=== PATIENT | male | born 1960 | race Caucasian/White ===

== ENCOUNTER 2017-07-05 11:22 | Inpatient (IN) | END 2017-07-07 20:00 | disposition home or self-care (01) | DRG 391 ==

== ENCOUNTER 2017-07-28 13:01 | Observation (INO) | END 2017-07-30 20:45 | disposition home health service (06) ==

== ENCOUNTER 2017-08-08 04:14 | Inpatient (IN) | END 2017-08-19 16:20 | disposition home or self-care (01) | DRG 264 ==

== ENCOUNTER 2017-10-20 20:16 | Emergency (ER) | END 2017-10-20 23:20 | disposition short-term general hospital (02) ==

== ENCOUNTER 2018-10-08 17:00 | Inpatient (IN) | payer MEDICARE, OTHER ==
[~2018-10-08] VITALS: Ht 180.3 cm; Wt 67.0 kg
[~2018-10-08 17:00] MED LIST: ASPI-817 PO; FURO40TA4 PO; LOSA50TA14 PO; METO-448 PO
[2018-10-08] MEDS ORDERED: LORAZEPAM 2 MG INJ IV STA (17:03)
[2018-10-08] MEDS ORDERED: ONDANSETRON 4 MG INJ IV STA ×2 (17:03→21:06)
[2018-10-08] MEDS ORDERED: PIPER-TAZO 3.375 GM IV (PMX) 100 ML IVPB STA (17:55)
--- NOTE | 2018-10-08 19:17 | ERD ---
ER Documentation Chief Complaint Chief Complaint SEIZURE WITH N/V ALSO POSTICTAL HPI This is a 58-year-old male who presents for evaluation of seizure associated with nausea vomiting and likely aspiration event. The patient has a history of renal failure, and he was seen today, per family, the seizure lasted for several minutes, he is currently on Dilantin, he has not had a fever, he had no head trauma. Family called 911, who instructed him to receive chest compressions, however the family notes that the patient did not lose pulses or have any period of arrest. ROS All systems reviewed and are negative except as per history of present illness. Medications Home Meds Discontinued Reported Medications Losartan Potassium* (Losartan Potassium*) Unknown Strength Tablet, 1 TAB PO DAILY, TAB 10/20/17 Furosemide* (Furosemide*) Unknown Strength Tablet, 1 TAB PO DAILY, TAB 10/20/17 Metoprolol Tartrate* (Lopressor*) 25 Mg Tab, 25 MG PO BID, #60 TAB 10/20/17 Aspirin* (Aspirin* EC) 81 Mg Tablet.dr, 81 MG PO DAILY, TAB 10/20/17 Allergies Allergies: Coded Allergies: No Known Allergy (Unverified , 10/08/18) PMhx/Soc History of Surgery: Yes (appendectomy, 2 stents) Anesthesia Reaction: No Hx Neurological Disorder: Yes (CVA; SEIZURES) Hx Respiratory Disorders: Yes (pneumonia) Hx Cardiac Disorders: Yes (HTN) Hx Psychiatric Problems: No (DEPRESSION) Hx Miscellaneous Medical Probl: Yes (DM; CKD; UPPER GI BLEED) Hx Alcohol Use: No Hx Substance Use: No Hx Tobacco Use: No Smoking Status: Never smoker Physical Exam Vitals Vital Signs Date Temp Pulse Resp B/P (MAP) Pulse Ox O2 O2 Flow FiO2 Time Delivery Rate 10/08/18 90 12 146/80 95 Nasal 3.0 18:47 (102) Cannula 10/08/18 Nasal 3 18:31 Cannula 10/08/18 97.8 94 20 195/102 100 17:13 (133) Physical Exam Const: Patient arrives, with face covered in vomit, he is awake, and respond Head: Atraumatic Eyes: Normal Conjunctiva ENT: Normal External Ears, Nose and Mouth. Neck: Full range of motion. No meningismus. Resp: Clear to auscultation bilaterally Cardio: Regular rate and rhythm, no murmurs Abd: Soft, non tender, non distended. Normal bowel sounds Skin: No petechiae or rashes Back: No midline or flank tenderness Ext: No cyanosis, or edema Neur: Awake, opens eyes spontaneously. Psych: Normal Mood and Affect Result Diagram: 10/08/18181410/08/181814 Results 24 hrs Laboratory Tests Test 10/08/18 18:15 10/08/18 18:16 White Blood Count 9.9 10^3/ul Red Blood Count 4.24 10^6/ul Hemoglobin 12.3 g/dl Hematocrit 36.1 % Mean Corpuscular Volume 85.1 fl Mean Corpuscular Hemoglobin 29.0 pg Mean Corpuscular Hemoglobin Concent 34.1 g/dl Red Cell Distribution Width 12.6 % Platelet Count 309 10^3/UL Mean Platelet Volume 10.6 fl Immature Granulocytes % 0.300 % Neutrophils % 79.9 % Lymphocytes % 10.2 % Monocytes % 7.2 % Eosinophils % 1.7 % Basophils % 0.7 % Nucleated Red Blood Cells % 0.0 /100WBC Immature Granulocytes # 0.030 10^3/ul Neutrophils # 7.9 10^3/ul Lymphocytes # 1.0 10^3/ul Monocytes # 0.7 10^3/ul Eosinophils # 0.2 10^3/ul Basophils # 0.1 10^3/ul Nucleated Red Blood Cells # 0.0 10^3/ul Prothrombin Time 12.0 Sec Prothrombin Time Ratio 0.9 INR International Normalized Ratio 0.88 Activated Partial Thromboplast Time 29.1 Sec Sodium Level 139 mmol/L Potassium Level 3.3 mmol/L Chloride Level 97 mmol/L Carbon Dioxide Level 29 mmol/L Anion Gap 13 Blood Urea Nitrogen 32 mg/dl Creatinine 5.48 mg/dl Est Glomerular Filtrat Rate mL/min 11 mL/min Glucose Level 196 mg/dl Calcium Level 7.5 mg/dl Total Bilirubin 0.0 mg/dl Direct Bilirubin 0.00 mg/dl Indirect Bilirubin 0.0 mg/dl Aspartate Amino Transf (AST/SGOT) 22 IU/L Alanine Aminotransferase (ALT/SGPT) 15 IU/L Alkaline Phosphatase 118 IU/L Total Protein 7.3 g/dl Albumin 3.7 g/dl Globulin 3.60 g/dl Albumin/Globulin Ratio 1.02 Phenytoin (Dilantin) Level < 3.0 ug/ml Lactic Acid Level 3.2 mmol/L Troponin I 0.021 ng/ml Lipase 312 U/L Current Medications Medications Dose Sig/Jacqueline Start Time Status Last (Trade) Ordered Route PRN Stop Time Admin Dose Reason Admin Lorazepam 0.5 mg ONCE STAT 10/08/18 DC 10/08/18 (Ativan) IV 17:03 17:32 10/08/18 17:13 Ondansetron 4 mg ONCE STAT 10/08/18 DC 10/08/18 HCl (Zofran IV 17:03 17:32 Inj) 10/08/18 17:13 Piperacillin 100 ml @ ONCE STAT 10/08/18 DC 10/08/18 Sod/ 200 mls/hr IVPB 17:55 18:43 Tazobactam 10/08/18 18:24 Sod 100 ml @ ONCE ONCE 10/08/18 Fosphenytoin 200 mls/hr IVPB 19:30 Sodium 1000 10/08/18 19:59 mg/ Sodium Chloride Procedures/MDM 58-year-old male with a history of seizures who presents with a seizure episode, complicated by aspiration event. Patient had no further seizure activity in the ED, he is given Zofran, Ativan, as well as loaded with fosphenytoin, as his phenytoin level was noted to be below the detectable range. Given his hypoxia, the patient will require admission, for his aspiration event. He was given Zosyn empirically. His lactate was noted to be elevated, I suspect this is likely secondary to seizure, he had no fever, and no evidence of severe sepsis or septic shock. The patient will be admitted to Dr. Gonzales in telemetry EKG: Rate/Rhythm: Normal Sinus Rhythm QRS, ST, T-waves: No changes consistent w/ acute ischemia Impression: No evidence of ischemia or arrhythmia Critical Care Time: 35 minutes Treatments/Evaluations: Close monitoring and treatment of unstable vital signs, cardiorespiratory, and neurologic status, while maintaining tight balance of fluid, respiratory, and cardiac interventions. This time includes discussing the case with the patient and the patient's family. This time does not include all procedures stated elsewhere in this record. This time also includes reviewing old records, labs and radiological studies. This time includes examining and re- examining the patient. Additionally, this time also includes arranging care with admitting and consulting physicians. Departure Diagnosis: Primary Impression: Seizure disorder Additional Impression: Aspiration pneumonia Aspiration pneumonia type: unspecified Laterality: unspecified laterality Lung location: unspecified part of lung Qualified Codes: J69.0 - Pneumonitis due to inhalation of food and vomit Condition: Stable MIGUEL PLASENCIA MD Oct 08, 2018 19:17
[2018-10-08] MEDS ORDERED: FOSPHENYTOIN (PE) 1,000 MG in SOD CHLORIDE 0.9% 80 ML IVPB ONE (19:30)
[2018-10-08 21:20] VITALS: Ht 180.3 cm; Wt 67.0 kg
[2018-10-08 21:28] VITALS: PULSE 100
[2018-10-08 21:49] VITALS: BP 140/64; PULSE 104; RESP 18
--- NOTE | 2018-10-08 22:44 | HP ---
Date/Time of Note Date/Time of Note DATE: 10/08/18 TIME: 22:44 Assessment/Plan VTE Prophylaxis Pharmacological prophylaxis: heparin Lines/Catheters IV [facility] Urinary Cath still in place: No Assessment/Plan Assessment/Plan 1. Seizure: Currently appears to be in a postictal state -Seizure precaution -Head CT without acute findings. Follow[facility] 2. Possible aspiration: Patient reportedly was vomiting during seizure -Chest x-ray without acute findings -She will be placed on broad-spectrum antibiotic -Chest CT for history distress of worsening leukocytosis, lactate or fever 3. ESRD on HD: Nephrology for dialysis 4. Hypertensive urgency: Adjust antihypertensive as needed 5. Diabetes: Insulin while in-house 6. Questionable sepsis: Likely from aspiration -Broad-spectrum IV antibiotic -Trend lactate -Follow-up blood culture results -We will give IV fluid. Note however that patient is dialysis dependent Result Diagram: 10/08/185 10/08/18 1815 Results 24hrs Laboratory Tests Test 10/08/18 18:15 10/08/18 18:16 White Blood Count 9.9 Red Blood Count 4.24 #L Hemoglobin 12.3 L Hematocrit 36.1 L Mean Corpuscular Volume 85.1 Mean Corpuscular Hemoglobin 29.0 Mean Corpuscular Hemoglobin Concent 34.1 Red Cell Distribution Width 12.6 Platelet Count 309 Mean Platelet Volume 10.6 H Immature Granulocytes % 0.300 Neutrophils % 79.9 H Lymphocytes % 10.2 L Monocytes % 7.2 Eosinophils % 1.7 Basophils % 0.7 Nucleated Red Blood Cells % 0.0 Immature Granulocytes # 0.030 Neutrophils # 7.9 H Lymphocytes # 1.0 Monocytes # 0.7 Eosinophils # 0.2 Basophils # 0.1 Nucleated Red Blood Cells # 0.0 Prothrombin Time 12.0 Prothrombin Time Ratio 0.9 INR International Normalized Ratio 0.88 Activated Partial Thromboplast Time 29.1 Sodium Level 139 Potassium Level 3.3 L Chloride Level 97 Carbon Dioxide Level 29 Anion Gap 13 Blood Urea Nitrogen 32 H Creatinine 5.48 H Est Glomerular Filtrat Rate mL/min 11 L Glucose Level 196 Calcium Level 7.5 L Total Bilirubin 0.0 L Direct Bilirubin 0.00 Indirect Bilirubin 0.0 Aspartate Amino Transf (AST/SGOT) 22 Alanine Aminotransferase (ALT/SGPT) 15 Alkaline Phosphatase 118 Total Protein 7.3 Albumin 3.7 Globulin 3.60 H Albumin/Globulin Ratio 1.02 Phenytoin (Dilantin) Level < 3.0 L Lactic Acid Level 3.2 *H Troponin I 0.021 Lipase 312 H HPI/ROS Admit Date/Time Admit Date/Time Oct 08, 2018 at 18:36 Hx of Present Illness This is a 58-year-old male with a history of hypertension, diabetes, CVA, ESRD on HD who presents the ER after he had a seizure. Seizure lasted about 50 minutes and also reportedly patient was vomiting at that time. Currently, patient is fully awake, but confused and not answering questions appropriately. When he came to the ER, initial blood pressure was 195/102. Head CT shows old stroke without acute findings. Initial lab shows a WBC of around 10, lactate 3.2. Chest x-ray without acute findings. PMH/Family/Social Past Medical History Past Surgical Hx: other (See HPI) Family History Significant Family History: no pertinent family hx Social History Alcohol Use: other Smoking Status: Never smoker Drug Use: none Exam/Review of Systems Vital Signs Exam Constitutional: alert, oriented, well developed, other (No acute distress. Answering questions appropriately) Head: normocephalic, atraumatic Eyes: EOMI, PERRL Respiratory: clear to auscultation, normal air movement Cardiovascular: regular rate and rhythm, nl pulses Gastrointestinal: soft, other (Tenderness in the epigastric area) Extremities: other (Trace pitting edema noted) Medications Current Medications IV Flush (NS 3 ml) 3 ml PER PROTOCOL IV ; Start 10/08/18 at 23:00; Status UNV Ondansetron HCl (Zofran Inj) 4 mg Q6H PRN IV NAUSEA/VOMITING; Start 10/08/18 at 23:00; Status UNV Acetaminophen (Tylenol Tab) 650 mg Q6H PRN PO .PAIN 1-3 OR TEMP; Start 10/08/18 at 23:00; Status UNV Albuterol/ Ipratropium (Duoneb) 3 ml Q2H RESP THERAPY PRN HHN SHORTNESS OF BREATH; Start 10/08/18 at 23:00; Status UNV Coded Allergies: No Known Allergy (Unverified , 10/08/18) Past Surgical History Past Surgical Hx: appendectomy Family History Significant Family History: no pertinent family hx Social History Smoking Status: Former smoker Exam/Review of Systems Vital Signs Vitals Vital Signs Date Temp Pulse Resp B/P (MAP) Pulse Ox O2 O2 Flow FiO2 Time Delivery Rate 10/08/18 98.6 104 18 140/64 98 Nasal 21:49 (89) Cannula 10/08/18 2.0 21:30 RADHA PARSON MD Oct 08, 2018 22:44
[2018-10-08] MEDS ORDERED: ONDANSETRON 4 MG INJ IV PRN (23:00)
[2018-10-08] MEDS ORDERED: NACL 0.9% 3 ML SYG IV SCH (23:00)
[2018-10-08] MEDS ORDERED: ACETAMINOPHEN 325 MG TAB PO PRN (23:00)
[2018-10-08] MEDS ORDERED: ALBUTEROL/IPRATROPIUM (NEB) 3 ML AMP HHN PRN (23:00)
[2018-10-09] VITALS (12 sets, daily range): BP systolic 100–139; BP diastolic 54–66; PULSE 73–100; RESP 18–20
[2018-10-09] MEDS ORDERED: SOD CHLORIDE 0.9% 250 ML IV ONE (00:30)
[2018-10-09] MEDS ORDERED: VANCOMYCIN IV PER PHARMACY XX SCH (00:30)
[2018-10-09] MEDS: CEFEPIME 1GM/50 ML (PMX) 50 ML IVPB SCH ×2 (00:40→23:39)
[2018-10-09] MEDS ORDERED: VANCOMYCIN HCL 1.25 GM in SOD CHLORIDE 0.9% 250 ML IVPB SCH (01:30)
[2018-10-09] MEDS ORDERED: LORAZEPAM 2 MG INJ IV PRN ×3 (09:00→18:30)
--- NOTE | 2018-10-09 09:33 | CONS ---
Assessment/Plan Assessment/Plan Hospital Course 58 yo M with reported hx of CVA, seizures, and other comorbidities who presents for evaluation of a breakthrough seizure. The clinical picture could be consistent with epilepsy. Uremia is additionally considered. Meningoencephalitis is less likely. CTH is notable for multiple old strokes, but is otherwise without acute intracranial pathology. P: Clarify hx of renal failure MRI brain for further characterization Decrease keppra to 500 BID given poor renal function Ativan IV PRN seizures > 5 min or for cluster Cont medical management per primary Will follow clinically, to recommend neurologic studies, as necessary Consultation Date/Type/Reason Admit Date/Time Oct 08, 2018 at 18:36 Type of Consult Neurology Reason for Consultation seizure Requesting Provider: COLUMBA LE MD Date/Time of Note DATE: 10/09/18 TIME: 09:32 Hx of Present Illness 58 yo M with reported hx of seizures, CVA and other comorbidities who presented to the ED for evaluation of seizures and vomiting. History was obtained from chart review as pt is a limited historian. It is elsewhere noted: Hx of Present Illness This is a 58-year-old male with a history of hypertension, diabetes, CVA, ESRD on HD who presents the ER after he had a seizure. Seizure lasted about 50 minutes and also reportedly patient was vomiting at that time. Currently, patient is fully awake, but confused and not answering questions appropriately. When he came to the ER, initial blood pressure was 195/102. Head CT shows old stroke without acute findings. Initial lab shows a WBC of around 10, lactate 3.2. Chest x-ray without acute findings. pt unwilling to participate at this time. Exam/Review of Systems Exam Vitals Vital Signs Date Temp Pulse Resp B/P (MAP) Pulse Ox O2 O2 Flow FiO2 Time Delivery Rate 10/09/18 81 08:26 10/09/18 98.2 20 110/59 94 07:10 (76) 10/09/18 2.0 02:42 10/09/18 Nasal 00:00 Cannula Intake and Output 10/08/18 10/08/18 10/09/18 1515:00 23:00 07:00 IntakeIntake Total 300 ml BalanceBalance 300 ml Exam PE: Gen Appearance: Vomit on gown HEENT: Normocephalic Cardiovascular: Regular rate Abdomen: Soft Extremities: Dry NE: The patient was awake and alert, with flat affect. Turned away when questions were asked. Cranial nerve examination was limited by mental status. Pupils were equal and reactive to light. There was no afferent pupillary defect. Funduscopic examination was limited. Face was grossly symmetric, w/ present corneal and cough reflexes. Tone was normal. Muscle bulk was normal. I did not see fasciculations. The patient was spontaneously moving his extremities. Coordination and gait testing was limited by mental status. Arm and leg reflexes were within normal limits and symmetric. Saenz's sign was absent. Plantar responses were flexor. Results Result Diagram: 10/09/18 0605 10/09/18 0606 Results 24hrs Laboratory Tests Test 10/08/18 18:15 10/08/18 18:16 10/08/18 22:17 10/09/18 06:05 White Blood Count 9.9 19.7 #H Red Blood Count 4.24 #L 3.94 L Hemoglobin 12.3 L 11.4 L Hematocrit 36.1 L 33.5 L Mean Corpuscular 85.1 85.0 Volume Mean Corpuscular 29.0 28.9 L Hemoglobin Mean Corpuscular 34.1 34.0 Hemoglobin Concent Red Cell 12.6 12.7 Distribution Width Platelet Count 309 301 Mean Platelet Volume 10.6 H 10.8 H Immature 0.300 1.000 H Granulocytes % Neutrophils % 79.9 H Lymphocytes % 10.2 L Monocytes % 7.2 Eosinophils % 1.7 Basophils % 0.7 Nucleated Red Blood 0.0 0.0 Cells % Immature 0.030 0.200 H Granulocytes # Neutrophils # 7.9 H Lymphocytes # 1.0 Monocytes # 0.7 Eosinophils # 0.2 Basophils # 0.1 Nucleated Red Blood 0.0 Cells # Prothrombin Time 12.0 Prothrombin Time 0.9 Ratio INR International 0.88 Normalized Ratio Activated 29.1 Partial Thromboplast Time Sodium Level 139 Potassium Level 3.3 L Chloride Level 97 Carbon Dioxide Level 29 Anion Gap 13 Blood Urea Nitrogen 32 H Creatinine 5.48 H Est Glomerular 11 L Filtrat Rate mL/min Glucose Level 196 Calcium Level 7.5 L Total Bilirubin 0.0 L Direct Bilirubin 0.00 Indirect Bilirubin 0.0 Aspartate Amino 22 Transf (AST/SGOT) Alanine 15 Aminotransferase (AL T/SGPT) Alkaline Phosphatase 118 Total Protein 7.3 Albumin 3.7 Globulin 3.60 H Albumin/Globulin 1.02 Ratio Phenytoin (Dilantin) < 3.0 L Level Lactic Acid Level 3.2 *H 7.9 *H 1.2 Troponin I 0.021 Lipase 312 H Hemoglobin A1c 6.5 H Test 10/09/18 06:06 10/09/18 08:31 Sodium Level 139 Potassium Level 3.3 L Chloride Level 98 Carbon Dioxide Level 30 Anion Gap 11 Blood Urea Nitrogen 41 H Creatinine 6.61 H Est Glomerular 9 L Filtrat Rate mL/min Glucose Level 182 Calcium Level 6.8 L Magnesium Level 1.4 L Total Bilirubin 0.3 Direct Bilirubin 0.00 Indirect Bilirubin 0.3 Aspartate Amino 22 Transf (AST/SGOT) Alanine 19 Aminotransferase (AL T/SGPT) Alkaline Phosphatase 78 Total Protein 5.8 #L Albumin 3.0 L Globulin 2.80 Albumin/Globulin 1.07 Ratio Triglycerides Level 87 Cholesterol Level 212 H LDL Cholesterol, 148 Calculated HDL Cholesterol 47 Cholesterol/HDL 4.5 Ratio Lactic Acid Level 1.3 Medications Medication Current Medications IV Flush (NS 3 ml) 3 ml PER PROTOCOL IV ; Start 10/08/18 at 23:00 Ondansetron HCl (Zofran Inj) 4 mg Q6H PRN IV NAUSEA/VOMITING; Start 10/08/18 at 23:00 Acetaminophen (Tylenol Tab) 650 mg Q6H PRN PO .PAIN 1-3 OR TEMP; Start 10/08/18 at 23:00 Albuterol/ Ipratropium (Duoneb) 3 ml Q2H RESP THERAPY PRN HHN SHORTNESS OF BREATH; Start 10/08/18 at 23:00 Cefepime HCl 50 ml @ 100 mls/hr Q24H IVPB Last administered on 10/09/18at 00:40; Admin Dose 100 MLS/HR; Start 10/09/18 at 00:30 Vancomycin HCl (Vanco Iv Per Pharmacy) VANCOMYCIN PER PHARMACY PER PROTOCOL XX ; Start 10/09/18 at 00:30 Clindamycin HCl/ Dextrose 50 ml @ 50 mls/hr Q8 IVPB ; Start 10/09/18 at 08:00 Sodium Chloride 1,000 ml @ 80 mls/hr [id number] IV ; Start 10/09/18 at 07:30 Levetiracetam 750 mg/Dextrose 107.5 ml @ 500 mls/hr Q12 IVPB ; Start 10/09/18 at 10:00 Lorazepam (Ativan) 2 mg Q1H PRN IV seizure; Start 10/09/18 at 09:00 Past Medical History reviewed Home Meds Discontinued Reported Medications Losartan Potassium* (Losartan Potassium*) Unknown Strength Tablet, 1 TAB PO ERWIN LY, TAB 10/20/17 Furosemide* (Furosemide*) Unknown Strength Tablet, 1 TAB PO DAILY, TAB 10/20/17 Metoprolol Tartrate* (Lopressor*) 25 Mg Tab, 25 MG PO BID, #60 TAB 10/20/17 Aspirin* (Aspirin* EC) 81 Mg Tablet.dr, 81 MG PO DAILY, TAB 10/20/17 Medications Current Medications IV Flush (NS 3 ml) 3 ml PER PROTOCOL IV ; Start 10/08/18 at 23:00 Ondansetron HCl (Zofran Inj) 4 mg Q6H PRN IV NAUSEA/VOMITING; Start 10/08/18 at 23:00 Acetaminophen (Tylenol Tab) 650 mg Q6H PRN PO .PAIN 1-3 OR TEMP; Start 10/08/18 at 23:00 Albuterol/ Ipratropium (Duoneb) 3 ml Q2H RESP THERAPY PRN HHN SHORTNESS OF BREATH; Start 10/08/18 at 23:00 Cefepime HCl 50 ml @ 100 mls/hr Q24H IVPB Last administered on 10/09/18at 00:40; Admin Dose 100 MLS/HR; Start 10/09/18 at 00:30 Vancomycin HCl (Vanco Iv Per Pharmacy) VANCOMYCIN PER PHARMACY PER PROTOCOL XX ; Start 10/09/18 at 00:30 Clindamycin HCl/ Dextrose 50 ml @ 50 mls/hr Q8 IVPB ; Start 10/09/18 at 08:00 Sodium Chloride 1,000 ml @ 80 mls/hr [id number] IV ; Start 10/09/18 at 07:30 Levetiracetam 750 mg/Dextrose 107.5 ml @ 500 mls/hr Q12 IVPB ; Start 10/09/18 at 10:00 Lorazepam (Ativan) 2 mg Q1H PRN IV seizure; Start 10/09/18 at 09:00 Allergies: Coded Allergies: No Known Allergy (Unverified , 10/08/18) Past Surgical History reviewed Past Surgical Hx: appendectomy Social History reviewed Smoking Status: Former smoker EMERALD,JEAN[employer]UL [employer] DES[employer] CONSULTANT Oct 09, 2018 09:33
[2018-10-09] MEDS: SOD CHLORIDE 0.9% 1,000 ML IV SCH ×2 (09:42→20:00)
[2018-10-09] MEDS: CLINDAMYCIN 600 MG/D5W (PMX) 50 ML IVPB SCH ×3 (09:43→22:08)
[2018-10-09] MEDS ORDERED: LEVETIRACETAM IV 750 MG in DEXTROSE 5% 100 ML IVPB SCH (10:00)
[2018-10-09] MEDS ORDERED: LEVETIRACETAM IV 500 MG in DEXTROSE 5% 100 ML IVPB SCH (10:00)
[2018-10-09] MEDS: LEVETIRACETAM 500 MG (PMX) 100 ML IVPB SCH ×2 (11:10→21:21)
--- NOTE | 2018-10-09 17:20 | QN ---
Documentation Comment [id number] consult EDMUNDO QUINN MD Oct 09, 2018 17:20
--- NOTE | 2018-10-09 18:10 | PN ---
Date/Time of Note Date/Time of Note DATE: 10/09/18 TIME: 18:04 Assessment/Plan VTE Prophylaxis Risk score (from Nsg)>0 risk: 7 SCD applied (from Ns): Yes SCD contraindicated: low risk/ambulating Pharmacological prophylaxis: LMWH Lines/Catheters IV Catheter Type (from Nrsg): Peripheral IV Urinary Cath still in place: No Assessment/Plan Hospital Course Hospitalist coverage A/P 1. Acute seizure vs breakthrough seizure, stable continue Dilantin. Consider EEG as indicated. etio.. hypotension, electrolytes, ro low bg? 2. Chronic seizure disorder since 2- 3 years. Did not tolerate Keppra according to 3. History of stroke around the same time 2 to 3 years 4. Chronic encephalopathy. Stroke, vascular, vs Wernicke's? Baseline, patient does not know what year it is. 5. Past alcoholism 6. Past tobacco? 7. Valvular heart disease moderate MR 8. Chronic coronary disease percutaneous intervention status 9. 2 diabetes 10. Axillary hypertension 11. Failure to thrive homeless 12. Neuropathy uses a walker 13. Suspected acute aspiration pneumonia, stable continue antibiotics 10. Failure to thrive S: states he had seizure-like episode after dialysis-clonic generalized grand mal. His last absent or petit mall seizures are over a year ago. Over the last few days he has missed dialysis as they have been homeless and living in a car. working with court to obtain a place to live. states that patient is exhausted and is not tolerating dialysis. Hospice was discussed in the past and if she wishes to discuss hospice again. O: Bp elevated but improved Physical exam No pallor adenopathy droop, unable to appreciate tongue bite Regular no murmur of gallop Diminished Bowel sounds present nt nd; no RRG No edema Neuro symm, grossly nonfocal Result Diagram: 10/09/18 0605 10/09/18 0606 Results 24hrs Laboratory Tests Test 10/08/18 18:15 10/08/18 18:16 10/08/18 22:17 10/09/18 06:05 White Blood Count 9.9 19.7 #H Red Blood Count 4.24 #L 3.94 L Hemoglobin 12.3 L 11.4 L Hematocrit 36.1 L 33.5 L Mean Corpuscular 85.1 85.0 Volume Mean Corpuscular 29.0 28.9 L Hemoglobin Mean Corpuscular 34.1 34.0 Hemoglobin Concent Red Cell 12.6 12.7 Distribution Width Platelet Count 309 301 Mean Platelet Volume 10.6 H 10.8 H Immature 0.300 1.000 H Granulocytes % Neutrophils % 79.9 H Lymphocytes % 10.2 L Monocytes % 7.2 Eosinophils % 1.7 Basophils % 0.7 Nucleated Red Blood 0.0 0.0 Cells % Immature 0.030 0.200 H Granulocytes # Neutrophils # 7.9 H Lymphocytes # 1.0 Monocytes # 0.7 Eosinophils # 0.2 Basophils # 0.1 Nucleated Red Blood 0.0 Cells # Prothrombin Time 12.0 Prothrombin Time 0.9 Ratio INR International 0.88 Normalized Ratio Activated 29.1 Partial Thromboplast Time Sodium Level 139 Potassium Level 3.3 L Chloride Level 97 Carbon Dioxide Level 29 Anion Gap 13 Blood Urea Nitrogen 32 H Creatinine 5.48 H Est Glomerular 11 L Filtrat Rate mL/min Glucose Level 196 Calcium Level 7.5 L Total Bilirubin 0.0 L Direct Bilirubin 0.00 Indirect Bilirubin 0.0 Aspartate Amino 22 Transf (AST/SGOT) Alanine 15 Aminotransferase (AL T/SGPT) Alkaline Phosphatase 118 Total Protein 7.3 Albumin 3.7 Globulin 3.60 H Albumin/Globulin 1.02 Ratio Phenytoin (Dilantin) < 3.0 L Level Lactic Acid Level 3.2 *H 7.9 *H 1.2 Troponin I 0.021 Lipase 312 H Segmented 61 Neutrophils % (Manual) Band Neutrophils % 20 H (Manual) Lymphocytes % 3 L (Manual) Reactive Lymphocytes 3 H % (Manual) Monocytes % (Manual) 11 Metamyelocytes % 1 H (manual) Myelocytes % 1 H (Manual) Neutrophils # 12.8 H (Manual) Band Neutrophils # 3.9 H Lymphocytes (Manual) 0.5 L Reactive Lymphocytes 0.5 H # Monocytes # (Manual) 2.1 H Metamyelocytes # 0.1 H Myelocytes # 0.1 H Platelet Estimate NORMAL Giant Platelets 2 H Poikilocytosis 2+ Anisocytosis 1+ Microcytosis 1+ Hemoglobin A1c 6.5 H Test 10/09/18 06:06 10/09/18 08:31 Sodium Level 139 Potassium Level 3.3 L Chloride Level 98 Carbon Dioxide Level 30 Anion Gap 11 Blood Urea Nitrogen 41 H Creatinine 6.61 H Est Glomerular 9 L Filtrat Rate mL/min Glucose Level 182 Calcium Level 6.8 L Magnesium Level 1.4 L Total Bilirubin 0.3 Direct Bilirubin 0.00 Indirect Bilirubin 0.3 Aspartate Amino 22 Transf (AST/SGOT) Alanine 19 Aminotransferase (AL T/SGPT) Alkaline Phosphatase 78 Total Protein 5.8 #L Albumin 3.0 L Globulin 2.80 Albumin/Globulin 1.07 Ratio Triglycerides Level 87 Cholesterol Level 212 H LDL Cholesterol, 148 Calculated HDL Cholesterol 47 Cholesterol/HDL 4.5 Ratio Lactic Acid Level 1.3 Exam/Review of Systems Exam Vitals Vital Signs Date Temp Pulse Resp B/P (MAP) Pulse Ox O2 O2 Flow FiO2 Time Delivery Rate 10/09/18 79 16:42 10/09/18 98.2 18 126/66 99 15:47 (86) 10/09/18 2.0 13:53 10/09/18 Nasal 09:25 Cannula Intake and Output 10/08/18 10/08/18 10/09/18 1515:00 23:00 07:00 IntakeIntake Total 300 ml BalanceBalance 300 ml Results Results 24hrs Laboratory Tests Test 10/08/18 18:15 10/08/18 18:16 10/08/18 22:17 10/09/18 06:05 White Blood Count 9.9 19.7 #H Red Blood Count 4.24 #L 3.94 L Hemoglobin 12.3 L 11.4 L Hematocrit 36.1 L 33.5 L Mean Corpuscular 85.1 85.0 Volume Mean Corpuscular 29.0 28.9 L Hemoglobin Mean Corpuscular 34.1 34.0 Hemoglobin Concent Red Cell 12.6 12.7 Distribution Width Platelet Count 309 301 Mean Platelet Volume 10.6 H 10.8 H Immature 0.300 1.000 H Granulocytes % Neutrophils % 79.9 H Lymphocytes % 10.2 L Monocytes % 7.2 Eosinophils % 1.7 Basophils % 0.7 Nucleated Red Blood 0.0 0.0 Cells % Immature 0.030 0.200 H Granulocytes # Neutrophils # 7.9 H Lymphocytes # 1.0 Monocytes # 0.7 Eosinophils # 0.2 Basophils # 0.1 Nucleated Red Blood 0.0 Cells # Prothrombin Time 12.0 Prothrombin Time 0.9 Ratio INR International 0.88 Normalized Ratio Activated 29.1 Partial Thromboplast Time Sodium Level 139 Potassium Level 3.3 L Chloride Level 97 Carbon Dioxide Level 29 Anion Gap 13 Blood Urea Nitrogen 32 H Creatinine 5.48 H Est Glomerular 11 L Filtrat Rate mL/min Glucose Level 196 Calcium Level 7.5 L Total Bilirubin 0.0 L Direct Bilirubin 0.00 Indirect Bilirubin 0.0 Aspartate Amino 22 Transf (AST/SGOT) Alanine 15 Aminotransferase (AL T/SGPT) Alkaline Phosphatase 118 Total Protein 7.3 Albumin 3.7 Globulin 3.60 H Albumin/Globulin 1.02 Ratio Phenytoin (Dilantin) < 3.0 L Level Lactic Acid Level 3.2 *H 7.9 *H 1.2 Troponin I 0.021 Lipase 312 H Segmented 61 Neutrophils % (Manual) Band Neutrophils % 20 H (Manual) Lymphocytes % 3 L (Manual) Reactive Lymphocytes 3 H % (Manual) Monocytes % (Manual) 11 Metamyelocytes % 1 H (manual) Myelocytes % 1 H (Manual) Neutrophils # 12.8 H (Manual) Band Neutrophils # 3.9 H Lymphocytes (Manual) 0.5 L Reactive Lymphocytes 0.5 H # Monocytes # (Manual) 2.1 H Metamyelocytes # 0.1 H Myelocytes # 0.1 H Platelet Estimate NORMAL Giant Platelets 2 H Poikilocytosis 2+ Anisocytosis 1+ Microcytosis 1+ Hemoglobin A1c 6.5 H Test 10/09/18 06:06 10/09/18 08:31 Sodium Level 139 Potassium Level 3.3 L Chloride Level 98 Carbon Dioxide Level 30 Anion Gap 11 Blood Urea Nitrogen 41 H Creatinine 6.61 H Est Glomerular 9 L Filtrat Rate mL/min Glucose Level 182 Calcium Level 6.8 L Magnesium Level 1.4 L Total Bilirubin 0.3 Direct Bilirubin 0.00 Indirect Bilirubin 0.3 Aspartate Amino 22 Transf (AST/SGOT) Alanine 19 Aminotransferase (AL T/SGPT) Alkaline Phosphatase 78 Total Protein 5.8 #L Albumin 3.0 L Globulin 2.80 Albumin/Globulin 1.07 Ratio Triglycerides Level 87 Cholesterol Level 212 H LDL Cholesterol, 148 Calculated HDL Cholesterol 47 Cholesterol/HDL 4.5 Ratio Lactic Acid Level 1.3 Medications Medication Current Medications IV Flush (NS 3 ml) 3 ml PER PROTOCOL IV ; Start 10/08/18 at 23:00 Ondansetron HCl (Zofran Inj) 4 mg Q6H PRN IV NAUSEA/VOMITING Last administered on 10/09/18at 09:37; Admin Dose 4 MG; Start 10/08/18 at 23:00 Acetaminophen (Tylenol Tab) 650 mg Q6H PRN PO .PAIN 1-3 OR TEMP; Start 10/08/18 at 23:00 Albuterol/ Ipratropium (Duoneb) 3 ml Q2H RESP THERAPY PRN HHN SHORTNESS OF BREATH; Start 10/08/18 at 23:00 Cefepime HCl 50 ml @ 100 mls/hr Q24H IVPB Last administered on 10/09/18at 00:40; Admin Dose 100 MLS/HR; Start 10/09/18 at 00:30 Vancomycin HCl (Vanco Iv Per Pharmacy) VANCOMYCIN PER PHARMACY PER PROTOCOL XX ; Start 10/09/18 at 00:30 Clindamycin HCl/ Dextrose 50 ml @ 50 mls/hr Q8 IVPB Last administered on 10/09/18at 14:24; Admin Dose 50 MLS/HR; Start 10/09/18 at 08:00 Sodium Chloride 1,000 ml @ 80 mls/hr [id number] IV Last administered on 10/09/18at 09:42; Admin Dose 80 MLS/HR; Start 10/09/18 at 07:30 Levetiracetam 100 ml @ 500 mls/hr Q12 IVPB Last administered on 10/09/18at 11:10; Admin Dose 500 MLS/HR; Start 10/09/18 at 10:00 Lorazepam (Ativan) 1 mg Q6H PRN IV seizure; Start 10/09/18 at 16:00 COLUMBA LE MD Oct 09, 2018 18:10
[2018-10-09] MEDS ORDERED: ALBUTEROL 0.083% (NEB) 2.5 MG/3 ML AMP HHN PRN (18:30)
[2018-10-09] MEDS: ALBUTEROL 0.083% (NEB) 2.5 MG/3 ML AMP HHN SCH (19:52)
[2018-10-09] MEDS: INSULIN ASPART [NOVOLOG] 3 ML PEN SC SCH (21:00)
[2018-10-09] MEDS ORDERED: INSULIN ASPART [NOVOLOG] 3 ML PEN SC SCH (21:00)
[2018-10-09] MEDS ORDERED: POTASSIUM CHLORIDE 20 MEQ POWDER FOR ORAL SOLN PO ONE (21:30)
--- NOTE | 2018-10-09 22:17 | CONS ---
DATE OF ADMISSION: 10/08/2018 DATE OF CONSULTATION: TYPE OF CONSULTATION: Nephrology. Thank you, Dr. Radha Gonzlaes, for kindly asking me to see this patient in consultation. HISTORY OF PRESENT ILLNESS: The patient is an elderly female with history of seizure disorder, histo ry of PermCath replacement, diabetes mellitus and history of CVA and seizures who presented with morena kthrough seizures. The patient has a history of seizures, takes seizure medication and blood pressur e 122/66. WBC 19.7, hematocrit 33.4 and platelet count of 301. Sodium 139, potassium 3.3, BUN [address] d creatinine 6.61. CT of chest shows mild bibasilar nonspecific ground-glass interstitial infiltrate , cardiomegaly and stone in the gallbladder done, and the patient is admitted for further management. PAST MEDICAL HISTORY: Positive for CKD, metabolic acidosis, anemia, history of CVA, diabetes, hypert ension, pleural effusions, cardiomegaly and lung atelectasis. ALLERGY HISTORY: LISTED NEGATIVE. FAMILY HISTORY: Cannot be obtained. SOCIAL HISTORY: Cannot be obtained. MEDICATION HISTORY: The patient's home medication includes: 1. Cefepime. 2. Clindamycin. 3. Celebrex. 4. Keppra. 5. The patient is on Zosyn. 6. The patient is on Tylenol. 7. Albuterol. 8. Lorazepam. 9. Zofran. 10. Vancomycin. REVIEW OF SYSTEMS: Cannot be obtained. PHYSICAL EXAMINATION: GENERAL: The patient is weak, slow, unable to communicate. VITAL SIGNS: Pulse 79, blood pressure 125/66. HEENT: Head is atraumatic and normocephalic. Pupils equal and reactive. NECK: Supple, no JVD. LUNGS: Clear. CARDIOVASCULAR: S1, S2 are normal. ABDOMEN: Soft, nontender. Bowel sounds present. No palpable mass. EXTREMITIES: No cyanosis or clubbing. Trace edema. CENTRAL NERVOUS SYSTEM: The patient awake and alert with generalized weakness. LABORATORY DATA: Hematocrit 33.5. Sodium 139, potassium 3.3. Lactic acid 7.9. IMPRESSION: 1. End-stage renal disease. 2. Seizure history. 3. Diabetes mellitus. 4. Hypokalemia. 5. Lactic acidosis. 6. Incomplete database. 7. PermCath placement. 8. Fluid overload. PLAN: At this point is to continue a renal diet ____ and anti-seizure medication per Neurology team. Hemodialysis will be continued as well. Thank you, Dr. Gonzales, for kindly asking me to see this patient in Nephrology consultation. Dictated By: EDMUNDO QUINN MD BS/NTS Conf#: [id number] DID#: [id number] CC: RADHA GONZALES MD;*EndCC*
[2018-10-09] MEDS ORDERED: MAGNESIUM SULFATE 3 GM in DEXTROSE 5% 100 ML IVPB ONE (22:30)
[2018-10-10] VITALS (12 sets, daily range): BP systolic 121–149; BP diastolic 63–80; PULSE 70–87; RESP 18–20
[2018-10-10] MEDS: ALBUTEROL 0.083% (NEB) 2.5 MG/3 ML AMP HHN SCH ×4 (01:14→19:46)
[2018-10-10] MEDS: ACCU-CHEK XX SCH (02:00)
[2018-10-10] MEDS: CEFEPIME 1GM/50 ML (PMX) 50 ML IVPB SCH (02:30)
[2018-10-10] MEDS: CLINDAMYCIN 600 MG/D5W (PMX) 50 ML IVPB SCH ×3 (06:26→23:36)
[2018-10-10] MEDS: INSULIN ASPART [NOVOLOG] 3 ML PEN SC SCH ×4 (08:00→20:30)
[2018-10-10] MEDS: FAMOTIDINE 20 MG INJ IV SCH (08:37)
[2018-10-10] MEDS: LEVETIRACETAM 500 MG (PMX) 100 ML IVPB SCH ×2 (08:40→21:32)
[2018-10-10] MEDS: ASPIRIN (EC) 81 MG TAB PO SCH (08:41)
[2018-10-10] MEDS: SOD CHLORIDE 0.9% 1,000 ML IV SCH (09:00)
--- NOTE | 2018-10-10 10:17 | CONS ---
Assessment/Plan Assessment/Plan Hospital Course 58 yo M with reported hx of CVA, epilepsy, and other comorbidities who presents for evaluation of a breakthrough seizure. That patient's reports that he is prescribed Dilantin; however, serum level on admission was undetectable.. The clinical picture is most consistent with breakthrough seizure in the context of medication noncompliance. Meningoencephalitis is unlikely. MRI brain is notable for multiple chronic BL hemispheric infarcts, but is otherwise without acute intracranial pathology. P: Load with depacon 1.5g iv x1, then start maintenance 500mg BID for now; titrate to goal level ~ 60 Cont Keppra 500 BID for now, with plan to titrate off (patient's reports prior intolerance..) Ativan IV PRN seizures > 5 min or for cluster Cont medical management per primary Will follow clinically, to recommend neurologic studies, as necessary Consultation Date/Type/Reason Admit Date/Time Oct 08, 2018 at 18:36 Type of Consult Neurology Reason for Consultation seizure Requesting Provider: COLUMBA LE MD Date/Time of Note DATE: 10/10/18 TIME: 10:17 24 HR Interval Summary Free Text/Dictation Continues acute care. No seizure episodes reported. The states that the pt has a hx of seizures since ~ age 18. She states that the pt was previously on Keppra but did not tolerate the medication well d/t its side effects combined with his agitation and mood disorders so it was switched to dilantin. She also mentioned that his home dose is 100mg TID, but that she scaled it back to 100mg BID as she was concerned about him becoming lethargic. She additionally notes that he has frequently had seizures during or after dialysis. Exam Vital Signs Vitals Vital Signs Date Temp Pulse Resp B/P (MAP) Pulse Ox O2 O2 Flow FiO2 Time Delivery Rate 10/10/18 Nasal 2.0 08:52 Cannula 10/10/18 80 08:05 10/10/18 98.0 20 135/68 98 07:47 (90) Intake and Output 10/09/18 10/09/18 10/10/18 1414:59 22:59 06:59 IntakeIntake Total 350 ml 250 ml BalanceBalance 350 ml 250 ml Exam PE: Gen Appearance: Vomit on gown HEENT: Normocephalic Cardiovascular: Regular rate Abdomen: Soft Extremities: Dry NE: The patient was awake and alert, with flat affect. Able to respond to yes/no questions. Unable to follow commands. Cranial nerve examination was limited by mental status. Pupils were equal and reactive to light. There was no afferent pupillary defect. Funduscopic examination was limited. Face was grossly symmetric, w/ present corneal and cough reflexes. Tone was normal. Muscle bulk was normal. I did not see fasciculations. The patient was spontaneously moving his extremities. Coordination and gait testing was limited by mental status. Arm and leg reflexes were within normal limits and symmetric. Saenz's sign was absent. Plantar responses were flexor. JEAN-PAUL CORBIN NP Oct 10, 2018 10:17 AURORA MANCERA Oct 10, 2018 19:34
[2018-10-10] MEDS ORDERED: POTASSIUM CHLORIDE 100 ML IVPB SCH (12:15)
--- NOTE | 2018-10-10 13:28 | PN ---
Date/Time of Note Date/Time of Note DATE: 10/10/18 TIME: 13:24 Assessment/Plan VTE Prophylaxis Risk score (from Nsg)>0 risk: 6 SCD applied (from Nsg): Yes SCD contraindicated: low risk/ambulating Pharmacological prophylaxis: LMWH Lines/Catheters IV Catheter Type (from Nrsg): Peripheral IV Urinary Cath still in place: No Assessment/Plan Hospital Course Hospitalist coverage A/P 1. Ac seizure vs breakthrough seizure, stable cont Dilantin. Tolerating Keppra. EEG if indicated. Etio.. hypotension, lytes, low bg? vs Chr post strokes. 2. Chr seizure dz since 2-3 yrs. Didnt tolerate Keppra according to 3. H/o stroke around the same time 2-3 yrs ago 4. Chr encephalopathy. 2 to Stroke, vascular, vs Wernicke's? Baseline, patient does not know what year it is. 5. Past alcoholism 6. Past tobacco? 7. Valvular heart disease, moderate MR 8. Chronic CAD/ pci 9. Dm II 10. Acc hypertension 11. Ftt/ homeless 12. Neuropathy uses a walker 13. Suspected acute aspiration pneumonia, stable continue antibiotics S: 10/09 states he had seizure-like episode after dialysis: generalized grand mal. His last absent or petit mall seizures are over a year ago. Over the last few days he has missed dialysis as they have been homeless and living in a car. Did get HD prior to arrival. working with court to obtain a place to live. states that patient is exhausted and is not tolerating dialysis. Hospice was discussed in the past and she wishes to discuss hospice again. 10/10: No seizures overnight. Follows some commands but not oriented. Family request secondary nephrology opinion. Fused to sign for dialysis consent until speaking with neurology and nephrology. Risk discussed with . O: vss Physical exam No pallor droop, unable to appreciate tongue bite Regular no m/r/g Diminished Bs+ nt nd; no RRG No edema Neuro symm, grossly nonfocal Result Diagram: 10/10/1852310/10/18 0526 Results 24hrs Laboratory Tests Test 10/09/18 21:12 10/10/18 05:24 10/10/18 05:26 10/10/18 08:35 Bedside Glucose 123 131 White Blood Count 11.8 #H Red Blood Count 3.74 L Hemoglobin 10.7 L Hematocrit 32.7 L Mean Corpuscular 87.4 Volume Mean Corpuscular 28.6 L Hemoglobin Mean Corpuscular 32.7 Hemoglobin Concent Red Cell 12.7 Distribution Width Platelet Count 278 Mean Platelet Volume 11.3 H Immature 0.300 Granulocytes % Neutrophils % 80.2 H Lymphocytes % 10.3 L Monocytes % 8.1 Eosinophils % 0.8 Basophils % 0.3 Nucleated Red Blood 0.0 Cells % Immature 0.040 H Granulocytes # Neutrophils # 9.4 H Lymphocytes # 1.2 Monocytes # 1.0 H Eosinophils # 0.1 Basophils # 0.0 Nucleated Red Blood 0.0 Cells # Prothrombin Time 13.8 Prothrombin Time 1.1 Ratio INR International 1.05 Normalized Ratio Activated 34.9 Partial Thromboplast Time Phosphorus Level 7.2 H Magnesium Level 2.4 # Vitamin B12 Level 364 Folate 7.8 Hepatitis B Surface NEGATIVE Antigen Hepatitis B Core NEGATIVE Total Antibody Hepatitis C Antibody NEGATIVE Sodium Level 142 Potassium Level 3.4 L Chloride Level 102 Carbon Dioxide Level 27 Anion Gap 13 Blood Urea Nitrogen 48 H Creatinine 8.59 H Est Glomerular 6 L Filtrat Rate mL/min Glucose Level 119 # Hemoglobin A1c 6.6 H Calcium Level 6.8 L Thyroid Stimulating 1.950 Hormone (TSH) Test 10/10/18 11:25 10/10/18 12:22 Ammonia < 9 L Bedside Glucose 202 Exam/Review of Systems Exam Vitals Vital Signs Date Temp Pulse Resp B/P (MAP) Pulse Ox O2 O2 Flow FiO2 Time Delivery Rate 10/10/18 82 12:17 10/10/18 98.0 18 133/70 98 11:45 (91) 10/10/18 Nasal 2.0 08:52 Cannula Intake and Output 10/09/18 10/09/18 10/10/18 1515:00 23:00 07:00 IntakeIntake Total 350 ml 250 ml BalanceBalance 350 ml 250 ml Results Results 24hrs Laboratory Tests Test 10/09/18 21:12 10/10/18 05:24 10/10/18 05:26 10/10/18 08:35 Bedside Glucose 123 131 White Blood Count 11.8 #H Red Blood Count 3.74 L Hemoglobin 10.7 L Hematocrit 32.7 L Mean Corpuscular 87.4 Volume Mean Corpuscular 28.6 L Hemoglobin Mean Corpuscular 32.7 Hemoglobin Concent Red Cell 12.7 Distribution Width Platelet Count 278 Mean Platelet Volume 11.3 H Immature 0.300 Granulocytes % Neutrophils % 80.2 H Lymphocytes % 10.3 L Monocytes % 8.1 Eosinophils % 0.8 Basophils % 0.3 Nucleated Red Blood 0.0 Cells % Immature 0.040 H Granulocytes # Neutrophils # 9.4 H Lymphocytes # 1.2 Monocytes # 1.0 H Eosinophils # 0.1 Basophils # 0.0 Nucleated Red Blood 0.0 Cells # Prothrombin Time 13.8 Prothrombin Time 1.1 Ratio INR International 1.05 Normalized Ratio Activated 34.9 Partial Thromboplast Time Phosphorus Level 7.2 H Magnesium Level 2.4 # Vitamin B12 Level 364 Folate 7.8 Hepatitis B Surface NEGATIVE Antigen Hepatitis B Core NEGATIVE Total Antibody Hepatitis C Antibody NEGATIVE Sodium Level 142 Potassium Level 3.4 L Chloride Level 102 Carbon Dioxide Level 27 Anion Gap 13 Blood Urea Nitrogen 48 H Creatinine 8.59 H Est Glomerular 6 L Filtrat Rate mL/min Glucose Level 119 # Hemoglobin A1c 6.6 H Calcium Level 6.8 L Thyroid Stimulating 1.950 Hormone (TSH) Test 10/10/18 11:25 10/10/18 12:22 Ammonia < 9 L Bedside Glucose 202 Medications Medication Current Medications IV Flush (NS 3 ml) 3 ml PER PROTOCOL IV ; Start 10/08/18 at 23:00 Acetaminophen (Tylenol Tab) 650 mg Q6H PRN PO .PAIN 1-3 OR TEMP; Start 10/08/18 at 23:00 Albuterol/ Ipratropium (Duoneb) 3 ml Q2H RESP THERAPY PRN HHN SHORTNESS OF BREATH; Start 10/08/18 at 23:00 Cefepime HCl 50 ml @ 100 mls/hr Q24H IVPB Last administered on 10/10/18at 02:30; Admin Dose 100 MLS/HR; Start 10/09/18 at 00:30 Vancomycin HCl (Vanco Iv Per Pharmacy) VANCOMYCIN PER PHARMACY PER PROTOCOL XX ; Start 10/09/18 at 00:30 Clindamycin HCl/ Dextrose 50 ml @ 50 mls/hr Q8 IVPB Last administered on 10/10/18at 06:26; Admin Dose 50 MLS/HR; Start 10/09/18 at 08:00 Sodium Chloride 1,000 ml @ 80 mls/hr [id number] IV Last administered on 10/10/18 09:00; Admin Dose 80 MLS/HR; Start 10/09/18 at 07:30 Levetiracetam 100 ml @ 500 mls/hr Q12 IVPB Last administered on 10/10/18 08:40; Admin Dose 500 MLS/HR; Start 10/09/18 at 10:00 Lorazepam (Ativan) 1 mg Q2H PRN IV seizure; Start 10/09/18 at 18:30 Ondansetron HCl (Zofran Inj) 4 mg Q4H PRN IV NAUSEA/VOMITING; Start 10/09/18 at 18:30 Famotidine (Pepcid Iv) 20 mg DAILY IV Last administered on 10/10/18 08:37; Admin Dose 20 MG; Start 10/10/18 at 09:00 Albuterol (Proventil 0.083% (Neb)) 1.25 mg Q2H RESP THERAPY PRN HHN WHEEZING AND RESP DISTRESS; Start 10/09/18 at 18:30 Albuterol (Proventil 0.083% (Neb)) 1.25 mg Q6H RESP THERAPY HHN Last administered on 10/10/18 09:39; Admin Dose 1.25 MG; Start 10/09/18 at 20:00 Aspirin (Halfprin) 81 mg DAILY PO Last administered on 10/10/18 08:41; Admin Dose 81 MG; Start 10/10/18 at 09:00 Diagnostic Test (Pha) (Accu-Chek) 1 ea 02 XX ; Start 10/10/18 at 02:00 Insulin Aspart (Novolog Insulin Pen) NOVOLOG *MILD* ALGORITHM WITH MEALS BEDTIME SC Last administered on 10/10/18at 12:29; Admin Dose 2 UNIT; Start 10/09/18 at 21:00 Potassium Chloride 100 ml @ 50 mls/hr NOW IVPB Last administered on 10/10/18 12:24; Admin Dose 50 MLS/HR; Start 10/10/18 at 12:15; Stop 10/10/18 at 14:14 COLUMBA LE MD Oct 10, 2018 13:28
--- NOTE | 2018-10-10 14:28 | CONS ---
Assessment/Plan Assessment/Plan Hospital Course (Demo Recall) 1. End-stage renal disease. 2. Seizure history. 3. Diabetes mellitus. 4. Hypokalemia. 5. Lactic acidosis. 6. Incomplete database. 7. PermCath placement. 8. Fluid overload. 9. Hyperphosphatemia 10. Hypocalcemia Assessment/Plan (Daily) - continue a renal diet -c/w anti-seizure medication per Neurology team. -c/w Hemodialysis -avoid nephrotoxic drugs -phos level is high, tmv level -start Renvela -calcium supplement IV -tmv CA ionized -Parathyroid hormone level, vit D Consultation Date/Type/Reason Admit Date/Time Oct 08, 2018 at 18:36 Initial Consult Date 10/09/2018 Type of Consult nephrology Reason for Consultation Dr Brown Requesting Provider: COLUMBA LE MD Date/Time of Note DATE: 10/10/18 TIME: 14:24 24 HR Interval Summary Free Text/Dictation slow Exam/Review of Systems Exam Vitals Vital Signs Date Temp Pulse Resp B/P (MAP) Pulse Ox O2 O2 Flow FiO2 Time Delivery Rate 10/10/18 82 12:17 10/10/18 98.0 18 133/70 98 11:45 (91) 10/10/18 Nasal 2.0 08:52 Cannula Intake and Output 10/09/18 10/09/18 10/10/18 1414:59 22:59 06:59 IntakeIntake Total 350 ml 250 ml BalanceBalance 350 ml 250 ml Exam perm cath chest Psych: no complaints Neck: supple Respiratory: diminished breath sounds Cardiovascular: regular rate and rhythm Gastrointestinal: soft Musculoskeletal: swelling; No nl extremities to inspection, No nl gait and stance, No joint tenderness, No muscle tone, No muscle weakness, No range of motion, No spine non-tender, No other Results Result Diagram: 10/10/18 0524 10/10/18 0526 Results 24hrs Laboratory Tests Test 10/09/18 21:12 10/10/18 05:24 10/10/18 05:26 10/10/18 08:35 Bedside Glucose 123 131 White Blood Count 11.8 #H Red Blood Count 3.74 L Hemoglobin 10.7 L Hematocrit 32.7 L Mean Corpuscular 87.4 Volume Mean Corpuscular 28.6 L Hemoglobin Mean Corpuscular 32.7 Hemoglobin Concent Red Cell 12.7 Distribution Width Platelet Count 278 Mean Platelet Volume 11.3 H Immature 0.300 Granulocytes % Neutrophils % 80.2 H Lymphocytes % 10.3 L Monocytes % 8.1 Eosinophils % 0.8 Basophils % 0.3 Nucleated Red Blood 0.0 Cells % Immature 0.040 H Granulocytes # Neutrophils # 9.4 H Lymphocytes # 1.2 Monocytes # 1.0 H Eosinophils # 0.1 Basophils # 0.0 Nucleated Red Blood 0.0 Cells # Prothrombin Time 13.8 Prothrombin Time 1.1 Ratio INR International 1.05 Normalized Ratio Activated 34.9 Partial Thromboplast Time Phosphorus Level 7.2 H Magnesium Level 2.4 # Vitamin B12 Level 364 Folate 7.8 Hepatitis B Surface NEGATIVE Antigen Hepatitis B Core NEGATIVE Total Antibody Hepatitis C Antibody NEGATIVE Sodium Level 142 Potassium Level 3.4 L Chloride Level 102 Carbon Dioxide Level 27 Anion Gap 13 Blood Urea Nitrogen 48 H Creatinine 8.59 H Est Glomerular 6 L Filtrat Rate mL/min Glucose Level 119 # Hemoglobin A1c 6.6 H Calcium Level 6.8 L Thyroid Stimulating 1.950 Hormone (TSH) Test 10/10/18 11:25 10/10/18 12:22 Ammonia < 9 L Bedside Glucose 202 Medications Medication Current Medications IV Flush (NS 3 ml) 3 ml PER PROTOCOL IV ; Start 10/08/18 at 23:00 Acetaminophen (Tylenol Tab) 650 mg Q6H PRN PO .PAIN 1-3 OR TEMP; Start 10/08/18 at 23:00 Albuterol/ Ipratropium (Duoneb) 3 ml Q2H RESP THERAPY PRN HHN SHORTNESS OF B REATH; Start 10/08/18 at 23:00 Cefepime HCl 50 ml @ 100 mls/hr Q24H IVPB Last administered on 10/10/18at 02:30; Admin Dose 100 MLS/HR; Start 10/09/18 at 00:30 Vancomycin HCl (Vanco Iv Per Pharmacy) VANCOMYCIN PER PHARMACY PER PROTOCOL XX ; Start 10/09/18 at 00:30 Clindamycin HCl/ Dextrose 50 ml @ 50 mls/hr Q8 IVPB Last administered on 10/10/18at 06:26; Admin Dose 50 MLS/HR; Start 10/09/18 at 08:00 Sodium Chloride 1,000 ml @ 50 mls/hr Q20H IV Last administered on 4/28/19at 09:00; Admin Dose 80 MLS/HR; Start 10/09/18 at 07:30 Levetiracetam 100 ml @ 500 mls/hr Q12 IVPB Last administered on 10/10/18 08:40; Admin Dose 500 MLS/HR; Start 10/09/18 at 10:00 Lorazepam (Ativan) 1 mg Q2H PRN IV seizure; Start 10/09/18 at 18:30 Ondansetron HCl (Zofran Inj) 4 mg Q4H PRN IV NAUSEA/VOMITING; Start 10/09/18 at 18:30 Famotidine (Pepcid Iv) 20 mg DAILY IV Last administered on 10/10/18 08:37; Admin Dose 20 MG; Start 10/10/18 at 09:00 Albuterol (Proventil 0.083% (Neb)) 1.25 mg Q2H RESP THERAPY PRN HHN WHEEZING AND RESP DISTRESS; Start 10/09/18 at 18:30 Albuterol (Proventil 0.083% (Neb)) 1.25 mg Q6H RESP THERAPY HHN Last administered on 10/10/18at 14:10; Admin Dose 1.25 MG; Start 10/09/18 at 20:00 Aspirin (Halfprin) 81 mg DAILY PO Last administered on 10/10/18at 08:41; Admin Dose 81 MG; Start 10/10/18 at 09:00 Diagnostic Test (Pha) (Accu-Chek) 1 ea 02 XX ; Start 10/10/18 at 02:00 Insulin Aspart (Novolog Insulin Pen) NOVOLOG *MILD* ALGORITHM WITH MEALS BEDTIME SC Last administered on 10/10/18at 12:29; Admin Dose 2 UNIT; Start 10/09/18 at 21:00 Enoxaparin Sodium (Lovenox) 30 mg DAILY SC ; Start 10/11/18 at 09:00 Epoetin Isidro-epbx (RETACRIT(esrd)) 10,000 unit MoWeFr@1700 SC ; Start 10/11/18 at 17:00 SHARLA WIGGINS Oct 10, 2018 14:28
[2018-10-10] MEDS ORDERED: VALPROATE INJ 1,000 MG in SOD CHLORIDE 0.9% 100 ML IVPB ONE (15:00)
[2018-10-10] MEDS ORDERED: CALCIUM GLUCONATE 10% 1 GM in DEXTROSE 5% 100 ML IVPB ONE ×2 (16:00→20:30)
--- NOTE | 2018-10-10 16:34 | CONS ---
DATE OF ADMISSION: 10/08/2018 DATE OF CONSULTATION: 10/10/2018 TYPE OF CONSULTATION: Nephrology. REASON FOR CONSULTATION: End-stage renal disease. REQUESTING PHYSICIAN: Dougie Williamson MD HISTORY OF PRESENT ILLNESS: This is a 58-year-old male with a medical history of end-stage renal dis ease on dialysis Thursday, Thursday, Thursday with access PermCath. The patient's primary senior manufacturing technician is Dr. Ryder. The patient has a history of diabetes, hypertension, history of seizure disorder, histo ry of CVA, who presents to the emergency room after a seizure episode. The patient noted to have a s eizure that lasted approximately 50 minutes. Following the seizure, 911 was called and the patient w as brought to the emergency room. The patient upon arrival had a CT scan of the brain which showed n o acute findings. The patient was then subsequently admitted to telemetry for evaluation. The patie nt has been seen by neurology and the patient's seizure medications have been adjusted. PAST MEDICAL HISTORY: As stated above, history of end-stage renal disease, diabetes, hypertension an d history of seizure disorder. FAMILY HISTORY: No family history of kidney disease. SOCIAL HISTORY: Does not drink, smoke or do drugs. MEDICATIONS: The patient's medications have been reviewed. ALLERGIES: Have been reviewed. PAST SURGICAL HISTORY: Status post appendectomy, status post Perm-A-Cath placement. REVIEW OF SYSTEMS: A 14-point review of systems conducted. Pertinent positives stated in HPI, other cormier negative. PHYSICAL EXAMINATION: VITAL SIGNS: Blood pressure 133/70, respiration 18, pulse 78, temperature 98.0. HEENT: Head is normocephalic. NECK: Supple. HEART: Regular rate. LUNGS: Show diminished breath sounds at the base. ABDOMEN: Soft, nontender to palpation. No rebound or guarding. EXTREMITIES: Negative for clubbing, cyanosis, no edema. DERMATOLOGIC: No rashes. MUSCULOSKELETAL: No joint effusions. NEUROLOGIC: No change in exam. LABORATORY DATA: Has been reviewed. ASSESSMENT AND PLAN: 1. End-stage renal disease. The patient is on dialysis Thursday, Thursday, Thursday with access Perm-A -Cath. Plan is for hemodialysis tomorrow. We will dialyze 3 hours 3k bath, calcium 2.5. Will discu ss with neurology about the possibility of giving the patient an additional dose of Keppra after hemo dialysis. Monitor closely. 2. Anemia. Continue to monitor hemoglobin and hematocrit levels. Will give Epogen as needed. 3. Mineral bone disorder, monitor calcium and phosphorus levels. 4. Hypokalemia. We will replete with potassium chloride. 5. Acute seizure. Etiology may be secondary to subtherapeutic Dilantin level. The patient's seizur e medications have been adjusted, currently on Keppra. Continue to monitor. 6. History of cerebrovascular treatment plan. 7. Chronic encephalopathy. Etiology may be secondary to vascular due to recent cerebrovascular acci dent. Continue to monitor. 8. Diabetes. Continue current insulin regimen. 9. Hypertension. Continue current blood pressure regimen. 10. Neuropathy. Continue current treatment plan. 12. Possible pneumonia. Continue antibiotic therapy. Thank you, Dr. Williamson for this interesting consult. It will be a pleasure to follow patient arpan hamm throughout the hospital course. Dictated By: ZAHIRA CARRERA/DALIA Conf#: [id number] DID#: [id number]
[2018-10-10] MEDS: SEVELAMER CARBONATE 800 MG TABLET PO SCH (17:47)
[2018-10-10] MEDS ORDERED: VALPROATE INJ 1,000 MG in DEXTROSE 5% 100 ML IVPB ONE (20:30)
[2018-10-10] MEDS ORDERED: VALPROATE INJ 500 MG in SOD CHLORIDE 0.9% 50 ML IVPB SCH (21:00)
[2018-10-11] VITALS (28 sets, daily range): BP systolic 135–190; BP diastolic 76–98; PULSE 71–102; RESP 18–20
--- NOTE | 2018-10-11 01:06 | RADRPT ---
Vent Rate: 87 bpm RR Interval: 692 msec TN Interval: 148 msec QRS Duration: 84 msec QT Interval: 421 msec QTC Interval: 506 msec P-R-T [place]: 57 - -8 - 92 degrees Sinus rhythm...normal P axis, V-rate 50- 99 Probable left atrial enlargement...P >50mS, <-0.10mV V1 Anterior infarct, old...Q >40mS, abnormal ST-T, V2-V5 Nonspecific T abnormalities, lateral leads...T <-0.10mV, I aVL V5 V6 Prolonged QT interval...QTc >500mS Electronically Signed By: Faisal Bone
[2018-10-11] MEDS: CEFEPIME 1GM/50 ML (PMX) 50 ML IVPB SCH (01:11)
[2018-10-11] MEDS: SOD CHLORIDE 0.9% 1,000 ML IV SCH (01:12)
[2018-10-11] MEDS: ALBUTEROL 0.083% (NEB) 2.5 MG/3 ML AMP HHN SCH ×4 (01:35→19:31)
[2018-10-11] MEDS: ACCU-CHEK XX SCH (02:00)
[2018-10-11] MEDS: CLINDAMYCIN 600 MG/D5W (PMX) 50 ML IVPB SCH ×2 (06:00→13:26)
[2018-10-11] MEDS: INSULIN ASPART [NOVOLOG] 3 ML PEN SC SCH ×4 (08:00→20:48)
[2018-10-11] MEDS: SEVELAMER CARBONATE 800 MG TABLET PO SCH ×3 (08:00→17:45)
[2018-10-11] MEDS ORDERED: VALPROATE INJ 500 MG in SOD CHLORIDE 0.9% 50 ML IVPB SCH (09:00)
--- NOTE | 2018-10-11 09:49 | PN ---
DATE: 10/11/2018 SUBJECTIVE: The patient is stable, no events overnight. No fevers, chills, nausea, or vomiting. OBJECTIVE: VITAL SIGNS: Blood pressure is 135/80, respirations 18, pulse 90, temperature 98.0. HEENT: Head is normocephalic. NECK: Supple. HEART: Regular rate. LUNGS: Show diminished breath sounds at the base. ABDOMEN: Soft, nontender to palpation without rebound or guarding. EXTREMITIES: Negative for clubbing, cyanosis, no edema. DERMATOLOGIC: No rashes. MUSCULOSKELETAL: No joint effusion. NEUROLOGIC: No change in exam. MEDICATIONS: Reviewed. LABORATORY DATA: Reviewed. ASSESSMENT AND PLAN: 1. End-stage renal disease. The patient is on dialysis Thursday, Thursday, and Thursday. Plan is for dialysis today. We will dialyze for 3 hours 3k bath, calcium 2.5. 2. Anemia. Continue to monitor hemoglobin and hematocrit levels. We will give Epogen with hemodial ysis. 3. Mineral bone disorder, monitor calcium and phosphorus levels. Continue phosphate binders. 4. Hypokalemia. Continue to monitor and replete. The patient will be dialyzed on high potassium ba . 5. Acute seizure. Etiology may be secondary to subtherapeutic Dilantin. The patient's medications have been adjusted. Continue Keppra. 6. History of cerebrovascular accident. Continue current medical management. 7. Chronic encephalopathy. Etiology is multifactorial secondary to acute cerebrovascular accident. Continue to monitor. 8. Diabetes. Continue current insulin regimen. 9. Hypertension. Continue current blood pressure regimen. 10. Neuropathy. Continue current treatment plan. 11. Possible pneumonia. Continue current antibiotic regimen. Dictated By: ZAHIRA SIMMS DO NR/NTS Conf#: [id number] DID#: [id number] CC: ZAHIRA SIMMS DO; RADHA PARSON MD; COLUMBA LE MD;*End*
[2018-10-11] MEDS: LEVETIRACETAM 500 MG (PMX) 100 ML IVPB SCH ×2 (10:33→20:42)
[2018-10-11] MEDS: FAMOTIDINE 20 MG INJ IV SCH (10:34)
[2018-10-11] MEDS: ASPIRIN (EC) 81 MG TAB PO SCH (10:34)
[2018-10-11] MEDS: CHOLECALCIFEROL 1,000 UNIT TAB PO SCH (10:34)
[2018-10-11] MEDS: MULTIVIT/CA CARB/B CMPLX/FA TAB PO SCH (10:34)
[2018-10-11] MEDS: ENOXAPARIN 30 MG/0.3 ML SYG SC SCH (10:36)
--- NOTE | 2018-10-11 12:17 | CONS ---
Assessment/Plan Assessment/Plan Hospital Course 58 yo M with reported hx of CVA, epilepsy, and other comorbidities who presents for evaluation of a breakthrough seizure. That patient's reports that he is prescribed Dilantin; however, serum level on admission was undetectable.. The clinical picture is most consistent with breakthrough seizure in the context of medication noncompliance. Meningoencephalitis is unlikely. MRI brain is notable for multiple chronic BL hemispheric infarcts, but is otherwise without acute intracranial pathology. P: Depakote 750mg BID iv for now; titrate prn to goal level 50-100 Cont Keppra 500 BID for now, with plan to titrate off (patient's reports prior intolerance..) Ativan IV PRN seizures > 5 min or for cluster Cont medical management per primary Will follow clinically, to recommend neurologic studies, as necessary Consultation Date/Type/Reason Admit Date/Time Oct 08, 2018 at 18:36 Type of Consult Neurology Reason for Consultation seizure Requesting Provider: COLUMBA LE MD Date/Time of Note DATE: 10/11/18 TIME: 12:17 24 HR Interval Summary Free Text/Dictation Continues acute care. S/p depakote load. S/p HD. No further seizure events r eported. Exam Vital Signs Vitals Vital Signs Date Temp Pulse Resp B/P (MAP) Pulse Ox O2 O2 Flow FiO2 Time Delivery Rate 10/11/18 98.0 89 18 190/98 98 11:26 (128) 10/11/18 Room Air 07:35 10/11/18 21 01:35 10/10/18 2.0 20:00 Intake and Output 10/10/18 10/10/18 10/11/18 1414:59 22:59 06:59 IntakeIntake Total 700 ml BalanceBalance 700 ml Exam PE: Gen Appearance: NAD HEENT: Normocephalic Cardiovascular: Regular rate Abdomen: Soft Extremities: Dry NE: The patient was awake and alert, with flat affect. Able to respond to yes/no questions. Unable to follow commands. Cranial nerve examination was limited by mental status. Pupils were equal and reactive to light. There was no afferent pupillary defect. Funduscopic examination was limited. Face was grossly symmetric, w/ present corneal and cough reflexes. Tone was normal. Muscle bulk was normal. I did not see fasciculations. The patient was spontaneously moving his extremities. Coordination and gait testing was limited by mental status. Arm and leg reflexes were within normal limits and symmetric. Saenz's sign was absent. Plantar responses were flexor. JEAN-PAUL CORBIN NP Oct 11, 2018 12:17 AURORA MANCERA Oct 11, 2018 19:48
--- NOTE | 2018-10-11 17:22 | PN ---
Date/Time of Note Date/Time of Note DATE: 10/11/18 TIME: 17:20 Assessment/Plan VTE Prophylaxis Risk score (from Nsg)>0 risk: 6 SCD applied (from Nsg): Yes Pharmacological prophylaxis: heparin Lines/Catheters IV Catheter Type (from Nrsg): Peripheral IV Urinary Cath still in place: No (no f/c) Assessment/Plan Hospital Course SUBJECTIVE: Remains afebrile. OBJECTIVE: Physical Exam General: Adequately build 58 year-old male lying in bed in no apparent distress. HEENT: Normocephalic, atraumatic. Eyes: Anicteric sclerae, conjunctivae clear. ENT: Nasal septum midline, oral mucosa moist. Neck supple, no JVD noticed. Respiratory: Bilaterally clear breath sounds. No use of accessory muscles of respiration. No adventitious breath sounds. Cardiovascular: S1, S2 heard. Regular rate and rhythm. Abdomen: Soft, nontender, and nondistended. Bowel sounds positive in all 4 quadrants. Genitourinary: Deferred. Extremities: No cyanosis, no clubbing, no edema. Peripheral pulses palpable. Neurologic: The patient is awake and alert. Labs & Vitals per chart ASSESSMENT & PLAN 58-year-old male with comorbidities including seizure disorder, end-stage renal disease on hemodialysis, hypertension, chronic encephalopathy, and diabetes mellitus, who was brought to the emergency room after breakthrough seizures, who was admitted to inpatient setting for further treatment and evaluation. 1. Seizure disorder. -Status post evaluation by neurology. -Continue anticonvulsants. 2. Hypertensive urgency. -Continue antihypertensives. -Adjust antihypertensives to obtain optimal blood pressure control. 3. Diabetes mellitus. -Hemoglobin A1c 6.6. -Continue sliding scale insulin. 4. End-stage renal disease on hemodialysis -Hemodialysis as per nephrology. 5. Suspected aspiration pneumonia. -Continue antimicrobials including coverage for anaerobes. 6. Normocytic, normochromic anemia. -Probably anemia of chronic kidney disease -Continue Epogen. 7. History of multiple strokes. -Continue aspirin. 8. Dyslipidemia. -Continue statins. 9. Fluids, electrolytes, and nutrition. -Renal, carbohydrate controlled diet. 10. DVT prophylaxis -Subcutaneous heparin. 11. Plan. -Continue antimicrobials -Monitor in hospital. -Await clinical improvement. The patient was seen in collaboration with Dr. Barbosa. Result Diagram: 10/10/18 0524 10/11/18 0513 Results 24hrs Laboratory Tests Test 10/10/18 17:45 10/10/18 20:21 10/11/18 05:13 10/11/18 08:41 Bedside Glucose 118 166 90 Sodium Level 143 Potassium Level 4.0 Chloride Level 104 Carbon Dioxide Level 24 Anion Gap 15 H Blood Urea Nitrogen 48 H Creatinine 9.50 H Est Glomerular 6 L Filtrat Rate mL/min Glucose Level 115 Calcium Level 7.1 L Ionized Calcium 0.8 L (Measured) Phosphorus Level 7.4 H Magnesium Level 2.2 Vitamin D < 12.8 L 1,25-Dihydroxy Random Vancomycin 12.6 Level Valproic Acid 41 L (Depakene) Level Test 10/11/18 11:21 10/11/18 14:10 Bedside Glucose 109 Valproic Acid 41 L (Depakene) Level Exam/Review of Systems Exam Vitals Vital Signs Date Temp Pulse Resp B/P (MAP) Pulse Ox O2 O2 Flow FiO2 Time Delivery Rate 10/11/18 71 16:01 10/11/18 98.0 20 149/76 98 15:29 (100) 10/11/18 Room Air 07:35 10/11/18 21 01:35 10/10/18 2.0 20:00 Intake and Output 10/10/18 10/10/18 10/11/18 1515:00 23:00 07:00 IntakeIntake Total 700 ml 250 ml BalanceBalance 700 ml 250 ml Results Results 24hrs Laboratory Tests Test 10/10/18 17:45 10/10/18 20:21 10/11/18 05:13 10/11/18 08:41 Bedside Glucose 118 166 90 Sodium Level 143 Potassium Level 4.0 Chloride Level 104 Carbon Dioxide Level 24 Anion Gap 15 H Blood Urea Nitrogen 48 H Creatinine 9.50 H Est Glomerular 6 L Filtrat Rate mL/min Glucose Level 115 Calcium Level 7.1 L Ionized Calcium 0.8 L (Measured) Phosphorus Level 7.4 H Magnesium Level 2.2 Vitamin D < 12.8 L 1,25-Dihydroxy Random Vancomycin 12.6 Level Valproic Acid 41 L (Depakene) Level Test 10/11/18 11:21 10/11/18 14:10 Bedside Glucose 109 Valproic Acid 41 L (Depakene) Level Medications Medication Current Medications IV Flush (NS 3 ml) 3 ml PER PROTOCOL IV ; Start 10/08/18 at 23:00 Acetaminophen (Tylenol Tab) 650 mg Q6H PRN PO .PAIN 1-3 OR TEMP; Start 10/08/18 at 23:00 Albuterol/ Ipratropium (Duoneb) 3 ml Q2H RESP THERAPY PRN HHN SHORTNESS OF BREATH; Start 10/08/18 at 23:00 Cefepime HCl 50 ml @ 100 mls/hr Q24H IVPB Last administered on 10/11/18at 01:11; Admin Dose 100 MLS/HR; Start 10/09/18 at 00:30 Vancomycin HCl (Vanco Iv Per Pharmacy) VANCOMYCIN PER PHARMACY PER PROTOCOL XX ; Start 10/09/18 at 00:30 Levetiracetam 100 ml @ 500 mls/hr Q12 IVPB Last administered on 10/11/18at 10:33; Admin Dose 500 MLS/HR; Start 10/09/18 at 10:00 Lorazepam (Ativan) 1 mg Q2H PRN IV seizure; Start 10/09/18 at 18:30 Ondansetron HCl (Zofran Inj) 4 mg Q4H PRN IV NAUSEA/VOMITING; Start 10/09/18 at 18:30 Famotidine (Pepcid Iv) 20 mg DAILY IV Last administered on 10/11/18at 10:34; Admin Dose 20 MG; Start 10/10/18 at 09:00 Albuterol (Proventil 0.083% (Neb)) 1.25 mg Q2H RESP THERAPY PRN HHN WHEEZING AND RESP DISTRESS; Start 10/09/18 at 18:30 Albuterol (Proventil 0.083% (Neb)) 1.25 mg Q6H RESP THERAPY HHN Last administered on 10/11/18at 08:39; Admin Dose 1.25 MG; Start 10/09/18 at 20:00 Aspirin (Halfprin) 81 mg DAILY PO Last administered on 10/11/18at 10:34; Admin Dose 81 MG; Start 10/10/18 at 09:00 Diagnostic Test (Pha) (Accu-Chek) 1 ea 02 XX ; Start 10/10/18 at 02:00 Insulin Aspart (Novolog Insulin Pen) NOVOLOG *MILD* ALGORITHM WITH MEALS BEDTIME SC Last administered on 10/10/18at 12:29; Admin Dose 2 UNIT; Start 10/09/18 at 21:00 Enoxaparin Sodium (Lovenox) 30 mg DAILY SC Last administered on 10/11/18at 10:36; Admin Dose 30 MG; Start 10/11/18 at 09:00 Epoetin Isidro-epbx (RETACRIT(esrd)) 10,000 unit MoWeFr@1700 SC ; Start 10/11/18 at 17:00 Sevelamer Carbonate (Renvela) 1,600 mg WITH MEALS PO Last administered on 10/11/18at 11:19; Admin Dose 1,600 MG; Start 10/10/18 at 18:00 Valproate Sodium 500 mg/Sodium Chloride 55 ml @ 55 mls/hr BID IVPB Last administered on 10/11/18at 11:19; Admin Dose 55 MLS/HR; Start 10/11/18 at 09:00 Cholecalciferol (Vitamin D) 1,000 unit DAILY PO Last administered on 10/11/18at 10:34; Admin Dose 1,000 UNIT; Start 10/11/18 at 09:00 Multivit/Ca Carb/ B Cmplx/FA/Prenat (Giselle-Cristin) 1 tab DAILY PO Last administered on 10/11/18at 10:34; Admin Dose 1 TAB; Start 10/11/18 at 09:00 Vancomycin HCl 250 ml @ 125 mls/hr ONCE IVPB ; Start 10/11/18 at 18:00; Stop 10/11/18 at 23:59 Metronidazole 100 ml @ 100 mls/hr Q8 IVPB ; Start 10/11/18 at 22:00 GORDON TEE NP Oct 11, 2018 17:22
[2018-10-11] MEDS: EPOETIN ALFA-EPBX (ESRD) 10,000 UNIT/ML VIAL SC SCH (17:45)
[2018-10-11] MEDS ORDERED: VANCOMYCIN 1 GM 250 ML IVPB SCH (18:00)
[2018-10-11] MEDS: VALPROATE INJ 750 MG in SOD CHLORIDE 0.9% 50 ML IVPB SCH (21:19)
[2018-10-11] MEDS: HEPARIN 5,000 UNIT/1 ML VIAL SC SCH (21:31)
[2018-10-11] MEDS: metroNIDAZOLE 500 MG/NS (PMX) 100 ML IVPB SCH (22:39)
[2018-10-12] VITALS (11 sets, daily range): BP systolic 138–182; BP diastolic 70–88; PULSE 79–94; RESP 16–20
[2018-10-12] MEDS: hydrALAzine 20 MG INJ IV PRN (00:08)
[2018-10-12] MEDS: CEFEPIME 1GM/50 ML (PMX) 50 ML IVPB SCH (00:15)
[2018-10-12] MEDS: ALBUTEROL 0.083% (NEB) 2.5 MG/3 ML AMP HHN SCH ×4 (01:44→20:01)
[2018-10-12] MEDS: ACCU-CHEK XX SCH (01:51)
[2018-10-12] MEDS: metroNIDAZOLE 500 MG/NS (PMX) 100 ML IVPB SCH ×3 (06:51→23:31)
[2018-10-12] MEDS: HEPARIN 5,000 UNIT/1 ML VIAL SC SCH ×3 (07:07→21:37)
[2018-10-12] MEDS: SEVELAMER CARBONATE 800 MG TABLET PO SCH ×3 (08:00→16:51)
[2018-10-12] MEDS: INSULIN ASPART [NOVOLOG] 3 ML PEN SC SCH ×4 (08:06→21:00)
--- NOTE | 2018-10-12 08:58 | PN ---
Date/Time of Note Date/Time of Note DATE: 10/12/18 TIME: 08:57 Assessment/Plan VTE Prophylaxis Risk score (from Nsg)>0 risk: 5 SCD applied (from Nsg): Yes Pharmacological prophylaxis: heparin Lines/Catheters IV Catheter Type (from Nrsg): Peripheral IV Urinary Cath still in place: No (no f/c) Assessment/Plan Hospital Course SUBJECTIVE: Remains afebrile. OBJECTIVE: Physical Exam General: Adequately build 58 year-old male lying in bed in no apparent distress. HEENT: Normocephalic, atraumatic. Eyes: Anicteric sclerae, conjunctivae clear. ENT: Nasal septum midline, oral mucosa moist. Neck supple, no JVD noticed. Respiratory: Bilaterally clear breath sounds. No use of accessory muscles of respiration. No adventitious breath sounds. Cardiovascular: S1, S2 heard. Regular rate and rhythm. Abdomen: Soft, nontender, and nondistended. Bowel sounds positive in all 4 quadrants. Genitourinary: Deferred. Extremities: No cyanosis, no clubbing, no edema. Peripheral pulses palpable. Neurologic: The patient is awake and alert. Labs & Vitals per chart ASSESSMENT & PLAN 58-year-old male with comorbidities including seizure disorder, end-stage renal disease on hemodialysis, hypertension, chronic encephalopathy, and diabetes mellitus, who was brought to the emergency room after breakthrough seizures, who was admitted to inpatient setting for further treatment and evaluation. 1. Seizure disorder. -Status post evaluation by neurology. -Continue anticonvulsants. 2. Hypertensive urgency. -Continue antihypertensives. -Adjust antihypertensives to obtain optimal blood pressure control. 3. Diabetes mellitus. -Hemoglobin A1c 6.6. -Continue sliding scale insulin. 4. End-stage renal disease on hemodialysis -Hemodialysis as per nephrology. 5. Suspected aspiration pneumonia. -Continue antimicrobials including coverage for anaerobes. 6. Normocytic, normochromic anemia. -Probably anemia of chronic kidney disease -Continue Epogen. 7. History of multiple strokes. -Continue aspirin. 8. Dyslipidemia. -Continue statins. 9. Fluids, electrolytes, and nutrition. -Renal, carbohydrate controlled diet. 10. DVT prophylaxis -Subcutaneous heparin. 11. Plan. -Continue antimicrobials -Await clinical improvement. -Transfer to Med/Surg. The patient was seen in collaboration with Dr. Barbosa. Result Diagram: 4/30/19 0520 4/30/19 0520 Results 24hrs Laboratory Tests Test 10/11/18 11:21 10/11/18 14:10 10/11/18 17:41 10/11/18 20:47 Bedside Glucose 109 157 139 Valproic Acid 41 L (Depakene) Level Test 10/12/18 05:20 10/12/18 08:00 White Blood Count 8.5 # Red Blood Count 3.88 L Hemoglobin 11.1 L Hematocrit 33.3 L Mean Corpuscular 85.8 Volume Mean Corpuscular 28.6 L Hemoglobin Mean Corpuscular 33.3 Hemoglobin Concent Red Cell 12.7 Distribution Width Platelet Count 291 Mean Platelet Volume 11.0 H Immature 0.500 H Granulocytes % Neutrophils % 74.2 Lymphocytes % 11.4 L Monocytes % 10.0 Eosinophils % 3.3 Basophils % 0.6 Nucleated Red Blood 0.0 Cells % Immature 0.040 H Granulocytes # Neutrophils # 6.3 Lymphocytes # 1.0 Monocytes # 0.9 Eosinophils # 0.3 Basophils # 0.1 Nucleated Red Blood 0.0 Cells # Sodium Level 142 Potassium Level 4.2 Chloride Level 108 Carbon Dioxide Level 26 Anion Gap 8 Blood Urea Nitrogen 25 #H Creatinine 6.42 #H Est Glomerular 9 L Filtrat Rate mL/min Glucose Level 143 Calcium Level 7.8 L Phosphorus Level 4.3 # Magnesium Level 1.9 Bedside Glucose 146 Exam/Review of Systems Exam Vitals Vital Signs Date Temp Pulse Resp B/P (MAP) Pulse Ox O2 O2 Flow FiO2 Time Delivery Rate 10/12/18 91 08:01 10/12/18 18 98 21 07:48 10/12/18 98.6 147/75 07:32 (99) 10/11/18 Nasal 2.0 20:15 Cannula Intake and Output 10/11/18 10/11/18 10/12/18 1515:00 23:00 07:00 IntakeIntake Total 155 ml 700 ml OutputOutput Total 2200 ml BalanceBalance -2045 ml 700 ml Results Results 24hrs Laboratory Tests Test 10/11/18 11:21 10/11/18 14:10 10/11/18 17:41 10/11/18 20:47 Bedside Glucose 109 157 139 Valproic Acid 41 L (Depakene) Level Test 10/12/18 05:20 10/12/18 08:00 White Blood Count 8.5 # Red Blood Count 3.88 L Hemoglobin 11.1 L Hematocrit 33.3 L Mean Corpuscular 85.8 Volume Mean Corpuscular 28.6 L Hemoglobin Mean Corpuscular 33.3 Hemoglobin Concent Red Cell 12.7 Distribution Width Platelet Count 291 Mean Platelet Volume 11.0 H Immature 0.500 H Granulocytes % Neutrophils % 74.2 Lymphocytes % 11.4 L Monocytes % 10.0 Eosinophils % 3.3 Basophils % 0.6 Nucleated Red Blood 0.0 Cells % Immature 0.040 H Granulocytes # Neutrophils # 6.3 Lymphocytes # 1.0 Monocytes # 0.9 Eosinophils # 0.3 Basophils # 0.1 Nucleated Red Blood 0.0 Cells # Sodium Level 142 Potassium Level 4.2 Chloride Level 108 Carbon Dioxide Level 26 Anion Gap 8 Blood Urea Nitrogen 25 #H Creatinine 6.42 #H Est Glomerular 9 L Filtrat Rate mL/min Glucose Level 143 Calcium Level 7.8 L Phosphorus Level 4.3 # Magnesium Level 1.9 Bedside Glucose 146 Medications Medication Current Medications IV Flush (NS 3 ml) 3 ml PER PROTOCOL IV ; Start 10/08/18 at 23:00 Acetaminophen (Tylenol Tab) 650 mg Q6H PRN PO .PAIN 1-3 OR TEMP; Start 10/08/18 at 23:00 Albuterol/ Ipratropium (Duoneb) 3 ml Q2H RESP THERAPY PRN HHN SHORTNESS OF BREATH; Start 10/08/18 at 23:00 Cefepime HCl 50 ml @ 100 mls/hr Q24H IVPB Last administered on 10/12/18at 00:15; Admin Dose 100 MLS/HR; Start 10/09/18 at 00:30 Vancomycin HCl (Vanco Iv Per Pharmacy) VANCOMYCIN PER PHARMACY PER PROTOCOL XX ; Start 10/09/18 at 00:30 Levetiracetam 100 ml @ 500 mls/hr Q12 IVPB Last administered on 10/11/18at 20:42; Admin Dose 500 MLS/HR; Start 10/09/18 at 10:00 Lorazepam (Ativan) 1 mg Q2H PRN IV seizure; Start 10/09/18 at 18:30 Ondansetron HCl (Zofran Inj) 4 mg Q4H PRN IV NAUSEA/VOMITING; Start 10/09/18 at 18:30 Famotidine (Pepcid Iv) 20 mg DAILY IV Last administered on 10/11/18 10:34; Admin Dose 20 MG; Start 10/10/18 at 09:00 Albuterol (Proventil 0.083% (Neb)) 1.25 mg Q2H RESP THERAPY PRN HHN WHEEZING AND RESP DISTRESS; Start 10/09/18 at 18:30 Albuterol (Proventil 0.083% (Neb)) 1.25 mg Q6H RESP THERAPY HHN Last administered on 10/12/18 07:47; Admin Dose 1.25 MG; Start 10/09/18 at 20:00 Aspirin (Halfprin) 81 mg DAILY PO Last administered on 10/11/18 10:34; Admin Dose 81 MG; Start 10/10/18 at 09:00 Diagnostic Test (Pha) (Accu-Chek) 1 ea 02 XX ; Start 10/10/18 at 02:00 Insulin Aspart (Novolog Insulin Pen) NOVOLOG *MILD* ALGORITHM WITH MEALS BEDTIM E SC Last administered on 10/12/18 08:06; Admin Dose 1 UNIT; Start 10/09/18 at 21:00 Enoxaparin Sodium (Lovenox) 30 mg DAILY SC Last administered on 10/11/18 10:36; Admin Dose 30 MG; Start 10/11/18 at 09:00 Epoetin Isidro-epbx (RETACRIT(esrd)) 10,000 unit MoWeFr@1700 SC Last administered on 10/11/18 17:45; Admin Dose 10,000 UNIT; Start 10/11/18 at 17:00 Sevelamer Carbonate (Renvela) 1,600 mg WITH MEALS PO Last administered on 10/11/18 11:19; Admin Dose 1,600 MG; Start 10/10/18 at 18:00 Cholecalciferol (Vitamin D) 1,000 unit DAILY PO Last administered on 10/11/18 10:34; Admin Dose 1,000 UNIT; Start 10/11/18 at 09:00 Multivit/Ca Carb/ B Cmplx/FA/Prenat (Giselle-Cristin) 1 tab DAILY PO Last administered on 10/11/18 10:34; Admin Dose 1 TAB; Start 10/11/18 at 09:00 Metronidazole 100 ml @ 100 mls/hr Q8 IVPB Last administered on 10/12/18 06:51; Admin Dose 100 MLS/HR; Start 10/11/18 at 22:00 Heparin Sodium (Porcine) (Heparin (5000 Units/1ml)) 5,000 unit Q8 SC Last administered on 10/12/18 07:07; Admin Dose 5,000 UNIT; Start 10/11/18 at 22:00 Valproate Sodium 750 mg/Sodium Chloride 57.5 ml @ 55 mls/hr BID IVPB Last administered on 10/11/18 21:19; Admin Dose 55 MLS/HR; Start 10/11/18 at 21:00 Hydralazine HCl (Apresoline) 10 mg Q4H PRN IV ELEVATED BLOOD PRESSURE Last administered on 10/12/18 00:08; Admin Dose 10 MG; Start 10/11/18 at 23:30 GORDON TEE NP Oct 12, 2018 08:58
[2018-10-12] MEDS: VALPROATE INJ 750 MG in SOD CHLORIDE 0.9% 50 ML IVPB SCH ×2 (09:05→22:25)
[2018-10-12] MEDS: ENOXAPARIN 30 MG/0.3 ML SYG SC SCH (09:05)
[2018-10-12] MEDS: LEVETIRACETAM 500 MG (PMX) 100 ML IVPB SCH ×2 (09:05→21:11)
[2018-10-12] MEDS: FAMOTIDINE 20 MG INJ IV SCH (09:06)
[2018-10-12] MEDS: ASPIRIN (EC) 81 MG TAB PO SCH (09:06)
[2018-10-12] MEDS: MULTIVIT/CA CARB/B CMPLX/FA TAB PO SCH (09:06)
[2018-10-12] MEDS: CHOLECALCIFEROL 1,000 UNIT TAB PO SCH (09:06)
--- NOTE | 2018-10-12 09:24 | PN ---
DATE: 10/12/2018 SUBJECTIVE: The patient had hemodialysis yesterday, tolerated well. OBJECTIVE: VITAL SIGNS: Blood pressure is 147/75, pulse 91, respirations 18, temperature 98.6. HEENT: Head is normocephalic. NECK: Supple. HEART: Regular rate. LUNGS: Show diminished breath sounds at the base. ABDOMEN: Soft, nontender to palpation without rebound or guarding. EXTREMITIES: Negative for clubbing, cyanosis, no edema. DERMATOLOGIC: No rashes. MUSCULOSKELETAL: No joint effusion. NEUROLOGIC: No change in exam. MEDICATIONS: Reviewed. LABORATORY DATA: Reviewed. ASSESSMENT AND PLAN: 1. End-stage renal disease. The patient is on dialysis Thursday, Thursday, and Thursday. We will have hemodialysis tomorrow. 2. Anemia. Continue to monitor hemoglobin and hematocrit levels. We will give Epogen as needed. 3. Mineral bone disorder. Monitor calcium and phosphorus levels. Continue phosphate binders. 4. Hypokalemia. Continue to monitor and replete as needed. 5. Acute seizure disorder. The patient's antiepileptic medications are being adjusted. Follow up w ith urology. 6. History of cerebrovascular accident. Continue medical management. 7. Chronic encephalopathy. Etiology is multifactorial. Continue to monitor. 8. Diabetes. Continue current insulin regimen. 9. Hypertension. Continue current blood pressure regimen. 10. Neuropathy. Continue current treatment plan. 11. Possible pneumonia. Continue current antibiotic regimen. Dictated By: ZAHIRA SIMMS DO NR/NTS Conf#: [id number] DID#: [id number] CC: ZAHIRA SIMMS DO; COLUMBA LE MD; RADHA PARSON MD;*EndCC*
--- NOTE | 2018-10-12 12:11 | CONS ---
Assessment/Plan Assessment/Plan Hospital Course 58 yo M with reported hx of CVA, epilepsy, and other comorbidities who presents for evaluation of a breakthrough seizure. That patient's reports that he is prescribed Dilantin; however, serum level on admission was undetectable.. The clinical picture is most consistent with breakthrough seizure in the context of medication noncompliance. Meningoencephalitis is unlikely. MRI brain is notable for multiple chronic BL hemispheric infarcts, but is otherwise without acute intracranial pathology. P: Depakote 750mg tid iv for now; titrate prn to goal level 50-100 Cont Keppra 500 BID for now, with plan to titrate off (patient's reports prior intolerance..) Ativan IV PRN seizures > 5 min or for cluster Cont medical management per primary Will follow clinically, to recommend neurologic studies, as necessary Consultation Date/Type/Reason Admit Date/Time Oct 08, 2018 at 18:36 Type of Consult Neurology Reason for Consultation seizure Requesting Provider: COLUMBA LE MD Date/Time of Note DATE: 10/12/18 TIME: 12:11 24 HR Interval Summary Free Text/Dictation Continues acute care. S/p depakote load. No reported seizures at this time. Exam Vital Signs Vitals Vital Signs Date Temp Pulse Resp B/P (MAP) Pulse Ox O2 O2 Flow FiO2 Time Delivery Rate 10/12/18 91 08:01 10/12/18 18 98 21 07:48 10/12/18 98.6 147/75 07:32 (99) 10/11/18 Nasal 2.0 20:15 Cannula Intake and Output 10/11/18 10/11/18 10/12/18 1515:00 23:00 07:00 IntakeIntake Total 155 ml 700 ml OutputOutput Total 2200 ml BalanceBalance -2045 ml 700 ml Exam PE: Gen Appearance: NAD HEENT: Normocephalic Cardiovascular: Regular rate Abdomen: Soft Extremities: Dry NE: The patient was asleep, though easily arousable to voice. Oriented to self only. Able to respond to yes/no questions. Unable to follow commands. Cranial nerve examination was limited by mental status. Pupils were equal and reactive to light. There was no afferent pupillary defect. Funduscopic examination was limited. Face was grossly symmetric, w/ present corneal and cough reflexes. Tone was normal. Muscle bulk was normal. I did not see fasciculations. The patient was spontaneously moving his extremities. Coordination and gait testing was limited by mental status. Arm and leg reflexes were within normal limits and symmetric. Saenz's sign was absent. Plantar responses were flexor. JEAN-PAUL CORBIN NP Oct 12, 2018 12:11 AURORA MANCERA October 13, 2018 20:33
[2018-10-12] MEDS ORDERED: VALPROATE INJ 500 MG in SOD CHLORIDE 0.9% 50 ML IVPB ONE (16:00)
[2018-10-12 19:57] LABS: PTH CALCIUM 6.8 mg/dL (8.6-10.3)
[2018-10-13] VITALS (20 sets, daily range): BP systolic 123–196; BP diastolic 74–94; PULSE 78–99; RESP 16–20
[2018-10-13] MEDS: CEFEPIME 1GM/50 ML (PMX) 50 ML IVPB SCH (00:35)
[2018-10-13] MEDS: ALBUTEROL 0.083% (NEB) 2.5 MG/3 ML AMP HHN SCH ×4 (01:24→20:00)
[2018-10-13] MEDS: ACCU-CHEK XX SCH (02:00)
[2018-10-13] MEDS: hydrALAzine 20 MG INJ IV PRN (02:14)
[2018-10-13] MEDS: VALPROATE INJ 750 MG in SOD CHLORIDE 0.9% 50 ML IVPB SCH ×3 (05:19→22:18)
--- NOTE | 2018-10-13 05:42 | PN ---
Date/Time of Note Date/Time of Note DATE: 10/13/18 TIME: 05:42 Assessment/Plan VTE Prophylaxis Risk score (from Nsg)>0 risk: 5 SCD applied (from Nsg): Yes Pharmacological prophylaxis: heparin Lines/Catheters IV Catheter Type (from Nrsg): Peripheral IV Urinary Cath still in place: No Assessment/Plan Hospital Course SUBJECTIVE: Remains afebrile. OBJECTIVE: Physical Exam General: Adequately build 58 year-old male lying in bed in no apparent distress. HEENT: Normocephalic, atraumatic. Eyes: Anicteric sclerae, conjunctivae clear. ENT: Nasal septum midline, oral mucosa moist. Neck supple, no JVD noticed. Respiratory: Bilaterally clear breath sounds. No use of accessory muscles of respiration. No adventitious breath sounds. Cardiovascular: S1, S2 heard. Regular rate and rhythm. Abdomen: Soft, nontender, and nondistended. Bowel sounds positive in all 4 quadrants. Genitourinary: Deferred. Extremities: No cyanosis, no clubbing, no edema. Peripheral pulses palpable. Neurologic: The patient is awake and alert. Labs & Vitals per chart ASSESSMENT & PLAN 58-year-old male with comorbidities including seizure disorder, end-stage renal disease on hemodialysis, hypertension, chronic encephalopathy, and diabetes mellitus, who was brought to the emergency room after breakthrough seizures, who was admitted to inpatient setting for further treatment and evaluation. 1. Seizure disorder. -Status post evaluation by neurology. -Continue anticonvulsants. 2. Hypertensive urgency. -Continue antihypertensives. -Adjust antihypertensives to obtain optimal blood pressure control. 3. Diabetes mellitus. -Hemoglobin A1c 6.6. -Continue sliding scale insulin. 4. End-stage renal disease on hemodialysis -Hemodialysis as per nephrology. 5. Suspected aspiration pneumonia. -Continue antimicrobials including coverage for anaerobes. 6. Normocytic, normochromic anemia. -Probably anemia of chronic kidney disease -Continue Epogen. 7. History of multiple strokes. -Continue aspirin. 8. Dyslipidemia. -Continue statins. 9. Fluids, electrolytes, and nutrition. -Renal, carbohydrate controlled diet. 10. DVT prophylaxis -Subcutaneous heparin. 11. Plan. -Continue antimicrobials -Await clinical improvement. The patient was seen in collaboration with Dr. Barbosa. Result Diagram: 10/13/18 0459 10/12/18 0520 Results 24hrs Laboratory Tests Test 10/12/18 08:00 10/12/18 12:08 10/12/18 16:50 10/12/18 21:32 Bedside Glucose 146 252 H 118 172 Test 10/13/18 04:59 White Blood Count 7.2 Red Blood Count 3.80 L Hemoglobin 10.9 L Hematocrit 33.1 L Mean Corpuscular 87.1 Volume Mean Corpuscular 28.7 L Hemoglobin Mean Corpuscular 32.9 Hemoglobin Concent Red Cell 12.7 Distribution Width Platelet Count 272 Mean Platelet Volume 11.1 H Immature 1.800 H Granulocytes % Neutrophils % 68.2 Lymphocytes % 15.9 Monocytes % 10.0 Eosinophils % 3.3 Basophils % 0.8 Nucleated Red Blood 0.0 Cells % Immature 0.130 H Granulocytes # Neutrophils # 4.9 Lymphocytes # 1.2 Monocytes # 0.7 Eosinophils # 0.2 Basophils # 0.1 Nucleated Red Blood 0.0 Cells # Exam/Review of Systems Exam Vitals Vital Signs Date Temp Pulse Resp B/P (MAP) Pulse Ox O2 O2 Flow FiO2 Time Delivery Rate 10/13/18 90 18 159/74 97 03:15 (102) 10/13/18 98.5 02:00 10/13/18 21 01:25 10/12/18 Nasal 2.0 20:30 Cannula Intake and Output 10/12/18 10/12/18 10/13/18 1515:00 23:00 07:00 IntakeIntake Total 300 ml 275 ml 207.5 ml BalanceBalance 300 ml 275 ml 207.5 ml Results Results 24hrs Laboratory Tests Test 10/12/18 08:00 10/12/18 12:08 10/12/18 16:50 10/12/18 21:32 Bedside Glucose 146 252 H 118 172 Test 10/13/18 04:59 White Blood Count 7.2 Red Blood Count 3.80 L Hemoglobin 10.9 L Hematocrit 33.1 L Mean Corpuscular 87.1 Volume Mean Corpuscular 28.7 L Hemoglobin Mean Corpuscular 32.9 Hemoglobin Concent Red Cell 12.7 Distribution Width Platelet Count 272 Mean Platelet Volume 11.1 H Immature 1.800 H Granulocytes % Neutrophils % 68.2 Lymphocytes % 15.9 Monocytes % 10.0 Eosinophils % 3.3 Basophils % 0.8 Nucleated Red Blood 0.0 Cells % Immature 0.130 H Granulocytes # Neutrophils # 4.9 Lymphocytes # 1.2 Monocytes # 0.7 Eosinophils # 0.2 Basophils # 0.1 Nucleated Red Blood 0.0 Cells # Medications Medication Current Medications IV Flush (NS 3 ml) 3 ml PER PROTOCOL IV ; Start 10/08/18 at 23:00 Acetaminophen (Tylenol Tab) 650 mg Q6H PRN PO .PAIN 1-3 OR TEMP; Start 10/08/18 at 23:00 Albuterol/ Ipratropium (Duoneb) 3 ml Q2H RESP THERAPY PRN HHN SHORTNESS OF BREATH; Start 10/08/18 at 23:00 Cefepime HCl 50 ml @ 100 mls/hr Q24H IVPB Last administered on 10/13/18at 00:35; Admin Dose 100 MLS/HR; Start 10/09/18 at 00:30 Vancomycin HCl (Vanco Iv Per Pharmacy) VANCOMYCIN PER PHARMACY PER PROTOCOL XX ; Start 10/09/18 at 00:30 Levetiracetam 100 ml @ 500 mls/hr Q12 IVPB Last administered on 10/12/18at 21:11; Admin Dose 500 MLS/HR; Start 10/09/18 at 10:00 Lorazepam (Ativan) 1 mg Q2H PRN IV seizure; Start 10/09/18 at 18:30 Ondansetron HCl (Zofran Inj) 4 mg Q4H PRN IV NAUSEA/VOMITING; Start 10/09/18 at 18:30 Famotidine (Pepcid Iv) 20 mg DAILY IV Last administered on 10/12/18at 09:06; Admin Dose 20 MG; Start 10/10/18 at 09:00 Albuterol (Proventil 0.083% (Neb)) 1.25 mg Q2H RESP THERAPY PRN HHN WHEEZING AND RESP DISTRESS; Start 10/09/18 at 18:30 Albuterol (Proventil 0.083% (Neb)) 1.25 mg Q6H RESP THERAPY HHN Last administered on 10/13/18at 01:24; Admin Dose 1.25 MG; Start 10/09/18 at 20:00 Aspirin (Halfprin) 81 mg DAILY PO Last administered on 10/12/18at 09:06; Admin Dose 81 MG; Start 10/10/18 at 09:00 Diagnostic Test (Pha) (Accu-Chek) 1 ea 02 XX ; Start 10/10/18 at 02:00 Insulin Aspart (Novolog Insulin Pen) NOVOLOG *MILD* ALGORITHM WITH MEALS BEDTIME SC Last administered on 10/12/18 12:11; Admin Dose 3 UNIT; Start 10/09/18 at 21:00 Enoxaparin Sodium (Lovenox) 30 mg DAILY SC Last administered on 10/12/18 09:05; Admin Dose 30 MG; Start 10/11/18 at 09:00 Epoetin Isidro-epbx (RETACRIT(esrd)) 10,000 unit MoWeFr@1700 SC Last administered on 10/11/18 17:45; Admin Dose 10,000 UNIT; Start 10/11/18 at 17:00 Sevelamer Carbonate (Renvela) 1,600 mg WITH MEALS PO Last administered on 10/11/18 11:19; Admin Dose 1,600 MG; Start 10/10/18 at 18:00 Cholecalciferol (Vitamin D) 1,000 unit DAILY PO Last administered on 10/12/18 09:06; Admin Dose 1,000 UNIT; Start 10/11/18 at 09:00 Multivit/Ca Carb/ B Cmplx/FA/Prenat (Giselle-Cristin) 1 tab DAILY PO Last administered on 10/12/18 09:06; Admin Dose 1 TAB; Start 10/11/18 at 09:00 Metronidazole 100 ml @ 100 mls/hr Q8 IVPB Last administered on 10/12/18 23:31; Admin Dose 100 MLS/HR; Start 10/11/18 at 22:00 Heparin Sodium (Porcine) (Heparin (5000 Units/1ml)) 5,000 unit Q8 SC Last administered on 10/12/18 21:37; Admin Dose 5,000 UNIT; Start 10/11/18 at 22:00 Hydralazine HCl (Apresoline) 10 mg Q4H PRN IV ELEVATED BLOOD PRESSURE Last administered on 10/13/18 02:14; Admin Dose 10 MG; Start 10/11/18 at 23:30 Valproate Sodium 750 mg/Sodium Chloride 57.5 ml @ 55 mls/hr Q8 IVPB Last administered on 10/13/18 05:19; Admin Dose 55 MLS/HR; Start 10/12/18 at 22:00 GORDON TEE NP October 13, 2018 05:42
[2018-10-13] MEDS: metroNIDAZOLE 500 MG/NS (PMX) 100 ML IVPB SCH ×3 (06:18→22:12)
[2018-10-13] MEDS: HEPARIN 5,000 UNIT/1 ML VIAL SC SCH ×3 (06:28→22:15)
[2018-10-13] MEDS: INSULIN ASPART [NOVOLOG] 3 ML PEN SC SCH ×4 (08:00→21:00)
--- NOTE | 2018-10-13 09:19 | PN ---
DATE: 10/13/2018 SUBJECTIVE: The patient is stable, no events overnight. No fevers, chills, nausea, or vomiting. OBJECTIVE: VITAL SIGNS: Blood pressure is 169/83, respirations 18, pulse 68, temperature 97.5. HEENT: Head is normocephalic. NECK: Supple. HEART: Regular rate. LUNGS: Show diminished breath sounds at the base. ABDOMEN: Soft, nontender to palpation without rebound or guarding. EXTREMITIES: Negative for clubbing, cyanosis, no edema. DERMATOLOGIC: No rashes. MUSCULOSKELETAL: No joint effusion. NEUROLOGIC: No change in exam. MEDICATIONS: Reviewed. LABORATORY DATA: Reviewed. ASSESSMENT AND PLAN: 1. End-stage renal disease. The patient is scheduled for hemodialysis today. We will dialyze 3 geremias rs 3k bath, calcium 2.5. 2. Anemia. Monitor hemoglobin and hematocrit levels. We will Epogen as needed. 3. Mineral bone disorder. Continue to monitor calcium and phosphorus levels. Continue phosphate bi nders. 4. Hypokalemia. Continue to monitor and replete. 5. Acute seizure disorder. Continue current antiepileptic medications. 6. History of cerebrovascular accident. Continue medical management. 7. Chronic encephalopathy. Etiology is multifactorial. Continue to monitor. 8. Diabetes. Continue current insulin regimen. 9. Hypertension. Continue current blood pressure regimen. 10. Neuropathy. Continue current treatment plan. 11. Possible pneumonia. Continue current antibiotic therapy. Dictated By: ZAHIRA SIMMS DO NR/NTS Conf#: [id number] DID#: [id number] CC: COLUMBA LE MD; ZAHIRA SIMMS DO; RADHA PARSON MD;*EndCC*
[2018-10-13] MEDS: LEVETIRACETAM 500 MG (PMX) 100 ML IVPB SCH ×2 (09:40→22:07)
[2018-10-13] MEDS: FAMOTIDINE 20 MG INJ IV SCH (09:42)
[2018-10-13] MEDS: ASPIRIN (EC) 81 MG TAB PO SCH (09:43)
[2018-10-13] MEDS: CHOLECALCIFEROL 1,000 UNIT TAB PO SCH (09:43)
[2018-10-13] MEDS: SEVELAMER CARBONATE 800 MG TABLET PO SCH ×3 (09:43→17:29)
[2018-10-13] MEDS: MULTIVIT/CA CARB/B CMPLX/FA TAB PO SCH (09:43)
[2018-10-13] MEDS: ENOXAPARIN 30 MG/0.3 ML SYG SC SCH (09:51)
[2018-10-13] MEDS: HEPARIN 1000 UNITS/ML 10 ML INJ CATHETER SCH (13:19)
--- NOTE | 2018-10-13 15:57 | CONS ---
Assessment/Plan Assessment/Plan Hospital Course 58 yo M with reported hx of CVA, epilepsy, and other comorbidities who presents for evaluation of a breakthrough seizure. That patient's reports that he is prescribed Dilantin; however, serum level on admission was undetectable.. The clinical picture is most consistent with breakthrough seizure in the context of medication noncompliance. Meningoencephalitis is unlikely. MRI brain is notable for multiple chronic BL hemispheric infarcts, but is otherwise without acute intracranial pathology. P: Increase Depakote to 750mg TID iv for now; titrate prn to goal level 50-100 Cont Keppra 500 BID for now, with plan to titrate off (patient's reports prior intolerance..) Ativan IV PRN seizures > 5 min or for cluster Cont medical management per primary Will follow clinically, to recommend neurologic studies, as necessary Consultation Date/Type/Reason Admit Date/Time Oct 08, 2018 at 18:36 Type of Consult Neurology Reason for Consultation seizure Requesting Provider: COLUMBA LE MD Date/Time of Note DATE: 10/13/18 TIME: 15:57 24 HR Interval Summary Free Text/Dictation Continues acute care. Exam Vital Signs Vitals Vital Signs Date Temp Pulse Resp B/P (MAP) Pulse Ox O2 O2 Flow FiO2 Time Delivery Rate 10/13/18 98.0 94 18 136/74 98 Room Air 14:31 (94) 10/13/18 21 14:06 10/13/18 2.0 08:30 Intake and Output 10/12/18 10/12/18 10/13/18 1515:00 23:00 07:00 IntakeIntake Total 300 ml 275 ml 407.5 ml BalanceBalance 300 ml 275 ml 407.5 ml Exam PE: Gen Appearance: NAD HEENT: Normocephalic Cardiovascular: Regular rate Abdomen: Soft Extremities: Dry NE: The patient was awake and alert. Oriented to self only. Able to respond to yes/no questions. Unable to follow commands. Cranial nerve examination was limited by mental status. Pupils were equal and reactive to light. There was no afferent pupillary defect. Funduscopic examination was limited. Face was grossly symmetric, w/ present corneal and cough reflexes. Tone was normal. Muscle bulk was normal. I did not see fasciculations. The patient was spontaneously moving his extremities. Coordination and gait testing was limited by mental status. Arm and leg reflexes were within normal limits and symmetric. Saenz's sign was absent. Plantar responses were flexor. JEAN-PAUL CORBIN NP October 13, 2018 15:57
[2018-10-13] MEDS: EPOETIN ALFA-EPBX (ESRD) 10,000 UNIT/ML VIAL SC SCH (17:29)
[2018-10-14] MEDS: CEFEPIME 1GM/50 ML (PMX) 50 ML IVPB SCH (00:29)
[2018-10-14] MEDS: ALBUTEROL 0.083% (NEB) 2.5 MG/3 ML AMP HHN SCH ×4 (01:47→21:07)
[2018-10-14] MEDS: ACCU-CHEK XX SCH (01:58)
[2018-10-14 02:45] VITALS: BP 138/69; PULSE 76; RESP 18
[2018-10-14] MEDS: metroNIDAZOLE 500 MG/NS (PMX) 100 ML IVPB SCH ×3 (05:37→22:24)
[2018-10-14] MEDS: VALPROATE INJ 750 MG in SOD CHLORIDE 0.9% 50 ML IVPB SCH ×2 (05:37→14:48)
[2018-10-14] MEDS: HEPARIN 5,000 UNIT/1 ML VIAL SC SCH ×3 (05:41→22:31)
[2018-10-14 07:52] VITALS: BP 178/87; PULSE 79; RESP 18
[2018-10-14] MEDS: INSULIN ASPART [NOVOLOG] 3 ML PEN SC SCH ×4 (08:00→20:18)
[2018-10-14] MEDS: MULTIVIT/CA CARB/B CMPLX/FA TAB PO SCH (08:53)
[2018-10-14] MEDS: ASPIRIN (EC) 81 MG TAB PO SCH (08:53)
[2018-10-14] MEDS: CHOLECALCIFEROL 1,000 UNIT TAB PO SCH (08:53)
[2018-10-14] MEDS: SEVELAMER CARBONATE 800 MG TABLET PO SCH ×3 (08:53→17:57)
[2018-10-14] MEDS: FAMOTIDINE 20 MG INJ IV SCH (08:54)
[2018-10-14] MEDS: LEVETIRACETAM 500 MG (PMX) 100 ML IVPB SCH ×2 (08:58→20:15)
--- NOTE | 2018-10-14 10:22 | PN ---
DATE: 10/14/2018 SUBJECTIVE: The patient is stable, had no events overnight. OBJECTIVE: VITAL SIGNS: Blood pressure is 178/87, respiration 18, pulse 79, temperature 98.0. HEENT: Head is normocephalic. NECK: Supple. HEART: Regular rate. LUNGS: Show diminished breath sounds at the base. ABDOMEN: Soft, nontender to palpation without rebound or guarding. EXTREMITIES: Negative for clubbing, cyanosis, no edema. DERMATOLOGIC: No rashes. MUSCULOSKELETAL: No joint effusion. NEUROLOGIC: No change in exam. MEDICATIONS: The patient's medications have been reviewed. LABORATORY DATA: From 10/14/2018 was reviewed. ASSESSMENT AND PLAN: 1. End-stage renal disease. The patient had hemodialysis yesterday, tolerated well. Plan for dialy sis again tomorrow. 2. Anemia. Monitor hemoglobin and hematocrit levels. Continue Epogen. 3. Mineral bone disorder. Monitor calcium and phosphorus levels. Continue phos binders. 4. Hypokalemia. Continue to monitor and replete as needed. 5. Seizure disorder. Continue current antiepileptic medications. Follow up with neurology. 6. History of cerebrovascular accident. Continue current treatment plan. 7. Chronic encephalopathy. Continue to monitor. 8. Diabetes. Continue current insulin regimen. 9. Hypertension. Continue current blood pressure regimen. 10. Neuropathy. Continue current treatment plan. 11. Possible pneumonia. The patient has completed an antibiotic course. Dictated By: ZAHIRA CARRERA/DALIA Conf#: [id number] DID#: [id number]
[2018-10-14] MEDS ORDERED: SEVE800T7 PO (13:51)
[2018-10-14] MEDS ORDERED: LEVE-5 PO (13:51)
[2018-10-14] MEDS ORDERED: CHOL100062 PO (13:51)
[2018-10-14] MEDS ORDERED: VALP250C3 PO (13:51)
[2018-10-14] MEDS ORDERED: LOSA25TA12 PO (13:53)
[2018-10-14] MEDS ORDERED: SITA25TA3 PO (13:57)
[2018-10-14] MEDS ORDERED: LEVO500T10 PO (13:58)
--- NOTE | 2018-10-14 14:03 | PDOCDIS ---
Discharge Instructions CONDITION [id number] Patient Condition: [id number] Stable HOME CARE INSTRUCTIONS: [id number] Special Diet: [id number] Low potassium, Low carbohydrate FOLLOW UP/APPOINTMENTS Follow-up Plan Dax Knight DO Specialty: Internal Medicine Office Address [address] [facility] [address] [place] [address] Office OTHER ORDERS: Other Orders: 1. Take medications as per prescription. 2. Follow-up with Dr. Knight in 2 weeks. 3. Follow-up with hemodialysis clinic as scheduled. 4. Follow a low potassium, low carbohydrate diet. 5. Resume activities with assist. GORDON TEE NP October 14, 2018 14:03
[2018-10-14 14:10] VITALS: BP 143/74; PULSE 92; RESP 18
--- NOTE | 2018-10-14 15:29 | DS ---
Date/Time of Note Date/Time of Note DATE: 10/14/18 TIME: 15:25 Discharge Summary Admission/Discharge Info Admit Date/Time Oct 08, 2018 at 18:36 Discharge Date/Time Discharge Diagnosis 1. Seizure disorder. 2. Hypertension. 3. Diabetes mellitus. Hemoglobin A1c 6.6. 4. End-stage renal disease on hemodialysis 5. Suspected aspiration pneumonia. 6. Normocytic, normochromic anemia. 7. History of multiple strokes. 8. Dyslipidemia. 9. Chronic encephalopathy. Patient Condition: Stable Consults 1. Rose Mary Jeffers MD, Neurology. 2. Sean Brown MD, Nephrology. 3. Dax Knight DO, Nephrology. Procedures Brain MRI IMPRESSION: 1. Limited evaluation due to motion, without acute intracranial pathology identified. 2. Chronic left parietal - temporal, right occipital, left frontal, bilateral cerebellar infarcts, and pontine and right thalamic lacunar infarction. 3. Mild generalized volume loss, with chronic small vessel ischemic changes. Chest CT IMPRESSION: 1. Mild bibasilar nonspecific ground-glass and interstitial infiltrates. Bibasilar atelectasis as well. 2. Mild cardiomegaly. 3. High-density sludge and small stones within the gallbladder. 4. Mild cardiomegaly with calcific atherosclerosis of the coronary arteries.. 5. Mild gynecomastia.. 6. Right jugular central venous dialysis catheter in place. Hx of Present Illness This is a 58-year-old male with comorbidities including seizure disorder, end- stage renal disease on hemodialysis, hypertension, chronic encephalopathy, and diabetes mellitus, who was brought to the emergency room after breakthrough seizures, who was admitted to inpatient setting for further treatment and evaluation. Hospital Course The patient was maintained on seizure precautions. He was started on appropriate anti-convulsion therapy. The patient was maintained on Keppra. The patient was also started on valproate therapy and was titrated up to obtain th erapeutic level and control of seizures. The patient was maintained on PRN IV benzodiazepines for any breakthrough seizures. The patient responded well to treatment strategy. The patient's brain imaging was negative for any acute findings. Neurology was following the patient throughout the hospital course. The patient had leukocytosis with chest imaging showing suspected infiltrates. The patient was started on antimicrobial therapy including coverage for anaerobes for any possible underlying aspiration pneumonia. The patient responded well to the treatment strategy. Upon discharge, the patient will be started on oral antimicrobial therapy to complete the course. The patient's chronic problems include hypertension. The patient was maintained on anti hypertensives. He has underlying diabetes mellitus. The patient's hemoglobin A1c was found to be 6.6. He was maintained on sliding scale insulin. Upon discharge, he will be started on DPP4 inhibitors. The patient has underlying end stage renal disease on hemodialysis. He was followed by nephrology and was getting HD sessions. The patient has underlying normocytic, normochromic anemia. The patient was maintained on Epogen. The patient has a history of multiple strokes. The patient was maintained on aspirin. The patient has underlying dyslipidemia and he was on statins. The patient has chronic encephalopathy and is more or less bedridden. The patient was evaluated by speech therapy who recommended thin liquids with a regular consistency diet. Physical therapy evaluated the patient and recommended home health physical therapy and family training. The patient had a stable hospital course. The patient resides at home, taken care of by the patient's family. The patient's family wanted to take the pat ient back home. Therefore, the patient will be discharged home with home health arranged for home safety and home physical therapy evaluation. Discharge Instructions 1. Take medications as per prescription. 2. Follow-up with Dr. Knight in 2 weeks. 3. Follow-up with hemodialysis clinic as scheduled. 4. Follow a low potassium, low carbohydrate diet. 5. Resume activities with assist. Discharge instructions were provided to the patient's . At this time I would like to thank all the consultants for seeing the patient and providing clinical recommendations. The patient was seen in collaboration with Dr. Barbosa. Home Meds Active Scripts Levofloxacin* (Levofloxacin*) 500 Mg Tablet, 500 MG PO Q48H, #5 TAB Prov:GORDON TEE NP 10/14/18 Sitagliptin* (Januvia*) 25 Mg Tablet, 25 MG PO DAILY, #30 TAB Prov:GORDON TEE NP 10/14/18 Losartan Potassium* (Losartan Potassium*) 25 Mg Tablet, 25 MG PO DAILY, #30 TAB Prov:GORDON TEE NP 10/14/18 Sevelamer Carbonate* (Renvela*) 800 Mg Tablet, 1600 MG PO WITH MEALS for 30 Days, #180 TAB 2 tablets (1600) po TID with meals Prov:GORDON TEE NP 10/14/18 Cholecalciferol* (Vitamin D3*) 1,000 Unit Tablet, 1000 UNIT PO DAILY, #30 TAB Prov:GORDON TEE [employer] 10/14/18 Valproic Acid* (Valproic Acid*) 250 Mg Capsule, 750 MG PO TID, #180 CAP 3 capsules (750 mg) orally TID Prov:GORDON TEE [employer] 10/14/18 Levetiracetam* (Keppra*) 500 Mg Tablet, 500 MG PO BID, #60 TAB Prov:GORDON TEE [employer]ER[employer] TE[employer] 10/14/18 Discontinued Reported Medications Losartan Potassium* (Losartan Potassium*) Unknown Strength Tablet, 1 TAB PO DAILY, TAB 10/20/17 Furosemide* (Furosemide*) Unknown Strength Tablet, 1 TAB PO DAILY, TAB 10/20/17 Metoprolol Tartrate* (Lopressor*) 25 Mg Tab, 25 MG PO BID, #60 TAB 10/20/17 Aspirin* (Aspirin* EC) 81 Mg Tablet., 81 MG PO DAILY, TAB 10/20/17 Follow-up Plan Dax Knight DO Specialty: Internal Medicine Office Address [address] [place] [address] [address] [place] [address] Office Primary Care Provider Not On Staff Doctor Time spent on discharge: > 30 minutes Pending Labs Laboratory Tests Test 10/13/18 17:28 10/13/18 22:11 10/14/18 04:38 10/14/18 07:52 Bedside 103 142 110 Glucose mg/dL (70-220) mg/dL (70-220) mg/dL (70-220) White Blood 8.4 Count 10^3/ul (4.8-1 0.8) Red Blood 3.93 Count 10^6/ul (4.70- 6.10) Hemoglobin 11.2 g/dl (14.0-18. 0) Hematocrit 34.4 % (42.0-52.0) Mean 87.5 Corpuscular fl (82.0-101.0 Volume ) Mean 28.5 Corpuscular pg (29.0-33.0) Hemoglobin Mean 32.6 Corpuscular g/dl (32.0-37. Hemoglobin Conc 0) ent Red Cell 12.6 Distribution % (11.5-14.5) Width Platelet Count 295 10^3/UL (140-4 15) Mean Platelet 11.3 Volume fl (7.4-10.4) Immature 2.400 Granulocytes % % (0.001-0.429 ) Neutrophils % 63.9 % (39.0-77.0) Lymphocytes % 19.1 % (15.0-51.0) Monocytes % 9.4 % (0.0-11.0) Eosinophils % 4.4 % (0.0-7.0) Basophils % 0.8 % (0.0-2.0) Nucleated Red 0.0 Blood Cells % /100WBC (0.0-0 .0) Immature 0.200 Granulocytes # 10^3/ul (0.0-0 .031) Neutrophils # 5.3 10^3/ul (1.6-7 .5) Lymphocytes # 1.6 10^3/ul (0.8-2 .9) Monocytes # 0.8 10^3/ul (0.3-0 .9) Eosinophils # 0.4 10^3/ul (0.0-0 .5) Basophils # 0.1 10^3/ul (0.0-0 .1) Nucleated Red 0.0 Blood Cells # 10^3/ul (0.0-0 .0) Sodium Level 142 mmol/L (135-14 4) Potassium 3.9 Level mmol/L (3.5-5. 1) Chloride Level 107 mmol/L (97-110 ) Carbon Dioxide 28 Level mmol/L (21-31) Anion Gap 7 (5-13) Blood Urea 19 Nitrogen mg/dl (7-20) Creatinine 5.85 mg/dl (0.61-1. 24) Est Glomerular 10 Filtrat mL/min (>60) Rate mL/min Glucose Level 115 mg/dl (70-220) Calcium Level 8.1 mg/dl (8.4-10. 2) Phosphorus 4.3 Level mg/dl (2.5-4.9 ) Magnesium 1.8 Level mg/dl (1.7-2.5 ) Procalcitonin 5.38 ng/mL (0.00-0. 10) Valproic Acid 48 (Depakene) ug/ml (50-100) Level Test 10/14/18 12:36 Bedside 167 Glucose mg/dL (70-220) GORDON TEE NP October 14, 2018 15:29
--- NOTE | 2018-10-14 15:37 | CONS ---
Assessment/Plan Assessment/Plan Hospital Course 58 yo M with reported hx of CVA, epilepsy, and other comorbidities who presents for evaluation of a breakthrough seizure. That patient's reports that he is prescribed Dilantin; however, serum level on admission was undetectable.. The clinical picture is most consistent with breakthrough seizure in the context of medication noncompliance. Meningoencephalitis is unlikely. MRI brain is notable for multiple chronic BL hemispheric infarcts, but is otherwise without acute intracranial pathology. P: Change Depakote 750mg TID IV to PO for now; titrate prn to goal level 50-100 Cont Keppra 500 BID for now, with plan to titrate off (patient's reports prior intolerance..) Ativan IV PRN seizures > 5 min or for cluster Other medical management and supportive care per primary Will follow clinically Consultation Date/Type/Reason Admit Date/Time Oct 08, 2018 at 18:36 Type of Consult Neurology Reason for Consultation seizure Requesting Provider: COLUMBA LE MD Date/Time of Note DATE: 10/14/18 TIME: 15:37 24 HR Interval Summary Free Text/Dictation Continues acute care. Exam Vital Signs Vitals Vital Signs Date Temp Pulse Resp B/P (MAP) Pulse Ox O2 O2 Flow FiO2 Time Delivery Rate 10/14/18 72 18 98 21 08:03 10/14/18 98.0 178/87 Room Air 07:52 (117) 10/13/18 2.0 08:30 Intake and Output 10/13/18 10/13/18 10/14/18 1515:00 23:00 07:00 IntakeIntake Total 820 ml 497.5 ml 365.0 ml OutputOutput Total 2600 ml BalanceBalance -1780 ml 497.5 ml 365.0 ml Exam PE: Gen Appearance: NAD HEENT: Normocephalic Cardiovascular: Regular rate Abdomen: Soft Extremities: Dry NE: The patient was awake and alert. Oriented to self only. Able to respond to yes/no questions. Unable to follow commands. Cranial nerve examination was limited by mental status. Pupils were equal and reactive to light. There was no afferent pupillary defect. Funduscopic examination was limited. Face was grossly symmetric, w/ present corneal and cough reflexes. Tone was normal. Muscle bulk was normal. I did not see fasciculations. The patient was spontaneously moving his extremities. Coordination and gait testing was limited by mental status. Arm and leg reflexes were within normal limits and symmetric. Saenz's sign was absent. Plantar responses were flexor. JEAN-PAUL CORBIN NP October 14, 2018 15:37 AURORA MANCERA October 15, 2018 06:47
[2018-10-14 20:00] VITALS: BP 146/88; PULSE 79; RESP 18
[2018-10-14] MEDS: DIVALPROEX (EC) 250 MG TAB PO SCH (21:31)
--- NOTE | 2018-10-14 23:28 | QN ---
Documentation Comment Spoke to over the phone. States patient is not speaking and combative. This happens to him after he receives Keppra. She reports that this is a known side effect for him. Doesn't feel comfortable taking him home. Will hold discharge and have him be reevaluated. ALEXANDER GREEN October 14, 2018 22:19
[2018-10-15] VITALS (20 sets, daily range): BP systolic 97–189; BP diastolic 67–89; PULSE 65–88; RESP 16–18
[2018-10-15] MEDS: CEFEPIME 1GM/50 ML (PMX) 50 ML IVPB SCH (00:36)
[2018-10-15] MEDS: ACCU-CHEK XX SCH (02:00)
[2018-10-15] MEDS: ALBUTEROL 0.083% (NEB) 2.5 MG/3 ML AMP HHN SCH ×4 (02:00→20:35)
[2018-10-15] MEDS: metroNIDAZOLE 500 MG/NS (PMX) 100 ML IVPB SCH ×3 (05:43→21:23)
[2018-10-15] MEDS: HEPARIN 5,000 UNIT/1 ML VIAL SC SCH ×3 (05:46→21:28)
[2018-10-15] MEDS ORDERED: LEVETIRACETAM 500 MG TAB PO ONE (09:00)
[2018-10-15] MEDS: SEVELAMER CARBONATE 800 MG TABLET PO SCH ×3 (09:09→18:52)
[2018-10-15] MEDS: MULTIVIT/CA CARB/B CMPLX/FA TAB PO SCH (09:09)
[2018-10-15] MEDS: CHOLECALCIFEROL 1,000 UNIT TAB PO SCH (09:09)
[2018-10-15] MEDS: ASPIRIN (EC) 81 MG TAB PO SCH (09:10)
[2018-10-15] MEDS: DIVALPROEX (EC) 250 MG TAB PO SCH ×2 (09:10→13:15)
[2018-10-15] MEDS: FAMOTIDINE 20 MG INJ IV SCH (09:10)
[2018-10-15] MEDS: INSULIN ASPART [NOVOLOG] 3 ML PEN SC SCH ×4 (09:23→21:00)
--- NOTE | 2018-10-15 09:33 | PN ---
DATE: 10/15/2018 SUBJECTIVE: The patient is stable, no events overnight. OBJECTIVE: VITAL SIGNS: Blood pressure is 189/89, pulse 73, respirations 16, temperature 97.8. HEENT: Head is normocephalic. NECK: Supple. HEART: Regular rate. LUNGS: Show diminished breath sounds at the base. ABDOMEN: Soft, nontender to palpation without rebound or guarding. EXTREMITIES: Negative for clubbing, cyanosis, no edema. DERMATOLOGIC: No rashes. MUSCULOSKELETAL: No joint effusion. NEUROLOGIC: No change in exam. MEDICATIONS: Reviewed. LABORATORY DATA: Reviewed. ASSESSMENT AND PLAN: 1. End-stage renal disease. The patient is scheduled for dialysis today. We will dialyze 3 hours, 3k bath, calcium 2.5. 2. Anemia. Continue to monitor hemoglobin and hematocrit levels. Continue Epogen. 3. Mineral bone disorder. Monitor calcium and phosphorus levels. Continue phosphate binders. 4. Hypokalemia. Continue to monitor and replete as needed. 5. Seizure disorder. Continue current medical management. 6. History of cerebrovascular accident. Continue current treatment plan. 7. Chronic encephalopathy. Continue to monitor. 8. Hypertension. Continue current blood pressure regimen. Continue ultrafiltration with dialysis. 9. Neuropathy. Continue current treatment plan. 10. Pneumonia. The patient is completing antibiotic course. Dictated By: ZAHIRA SIMMS DO NR/NTS Conf#: [id number] DID#: [id number] CC: ZAHIRA SIMMS DO; COLUMBA LE MD; RADHA PARSON MD;*EndCC*
--- NOTE | 2018-10-15 12:49 | CONS ---
Assessment/Plan Assessment/Plan Hospital Course 58 yo M with reported hx of CVA, epilepsy, and other comorbidities who presents for evaluation of a breakthrough seizure. That patient's reports that he is prescribed Dilantin; however, serum level on admission was undetectable.. The clinical picture is most consistent with breakthrough seizure in the context of medication noncompliance. Meningoencephalitis is unlikely. MRI brain is notable for multiple chronic BL hemispheric infarcts, but is otherwise without acute intracranial pathology. P: Bolus Depakote 750mg x 1 dose now and continue maintenance 750mg TID for now; titrate prn to goal level 50-100 Agree with discontinuation of Keppra Ativan IV PRN seizures > 5 min or for cluster Cont medical management per primary Will follow clinically, to recommend neurologic studies, as necessary Consultation Date/Type/Reason Admit Date/Time Oct 08, 2018 at 18:36 Type of Consult Neurology Reason for Consultation seizure Requesting Provider: COLUMBA LE MD Date/Time of Note DATE: 10/15/18 TIME: 12:48 24 HR Interval Summary Free Text/Dictation Continues acute care. Exam Vital Signs Vitals Vital Signs Date Temp Pulse Resp B/P (MAP) Pulse Ox O2 O2 Flow FiO2 Time Delivery Rate 10/15/18 72 18 97 21 08:53 10/15/18 97.8 189/89 07:33 (122) 10/15/18 Room Air 02:00 10/13/18 2.0 08:30 Intake and Output 10/14/18 10/14/18 10/15/18 1515:00 23:00 07:00 IntakeIntake Total 360 ml 477.5 ml 370 ml BalanceBalance 360 ml 477.5 ml 370 ml Exam PE: Gen Appearance: NAD HEENT: Normocephalic Cardiovascular: Regular rate Abdomen: Soft Extremities: Dry NE: The patient was awake and alert. Oriented to self only. Able to respond to yes/no questions. Unable to follow commands. Cranial nerve examination was limited by mental status. Pupils were equal and reactive to light. There was no afferent pupillary defect. Funduscopic examination was limited. Face was grossly symmetric, w/ present corneal and c ough reflexes. Tone was normal. Muscle bulk was normal. I did not see fasciculations. The patient was spontaneously moving his extremities. Coordination and gait testing was limited by mental status. Arm and leg reflexes were within normal limits and symmetric. Saenz's sign was absent. Plantar responses were flexor. JEAN-PAUL CORBIN NP October 15, 2018 12:49
--- NOTE | 2018-10-15 13:35 | PN ---
Date/Time of Note Date/Time of Note DATE: 10/15/18 TIME: 13:35 Assessment/Plan VTE Prophylaxis Risk score (from Ns)>0 risk: 3 SCD applied (from Nsg): Yes Pharmacological prophylaxis: heparin Lines/Catheters IV Catheter Type (from Nrs): Saline Lock Urinary Cath still in place: No Assessment/Plan Hospital Course SUBJECTIVE: Remains afebrile. No changes in status. OBJECTIVE: Physical Exam General: Adequately build 58 year-old male lying in bed in no apparent distress. HEENT: Normocephalic, atraumatic. Eyes: Anicteric sclerae, conjunctivae clear. ENT: Nasal septum midline, oral mucosa moist. Neck supple, no JVD noticed. Respiratory: Bilaterally clear breath sounds. No use of accessory muscles of respiration. No adventitious breath sounds. Cardiovascular: S1, S2 heard. Regular rate and rhythm. Abdomen: Soft, nontender, and nondistended. Bowel sounds positive in all 4 quadrants. Genitourinary: Deferred. Extremities: No cyanosis, no clubbing, no edema. Peripheral pulses palpable. Neurologic: The patient is awake and alert. Does not talk despite repeated prodding. Labs & Vitals per chart ASSESSMENT & PLAN 58-year-old male with comorbidities including seizure disorder, end-stage renal disease on hemodialysis, hypertension, chronic encephalopathy, and diabetes mellitus, who was brought to the emergency room after breakthrough seizures, who was admitted to inpatient setting for further treatment and evaluation. 1. Seizure disorder. -Status post evaluation by neurology. -Continue anticonvulsants. 2. Hypertensive urgency. -Continue antihypertensives. -Adjust antihypertensives to obtain optimal blood pressure control. 3. Diabetes mellitus. -Hemoglobin A1c 6.6. -Continue sliding scale insulin. 4. End-stage renal disease on hemodialysis -Hemodialysis as per nephrology. 5. Suspected aspiration pneumonia. -Continue antimicrobials including coverage for anaerobes. 6. Normocytic, normochromic anemia. -Probably anemia of chronic kidney disease -Continue Epogen. 7. History of multiple strokes. -Continue aspirin. 8. Dyslipidemia. -Continue statins. 9. Fluids, electrolytes, and nutrition. -Renal, carbohydrate controlled diet. 10. DVT prophylaxis -Subcutaneous heparin. 11. Plan. -Continue antimicrobials -The patient had discharge orders on 10/14/2018. However, when the patient's came to sisal picker the patient she was upset that the patient was still on Keppra. (Patient's reports intolerance to Keppra by the patient in the form of increased confusion and decreased talking). Therefore, the patient's Keppra was discontinued on 10/15/2018. Will monitor the patient off Keppra and monitor valproic acid levels. Once stable, the patient will be discharged home. The patient was seen in collaboration with Dr. Barbosa. Result Diagram: 10/14/18 0438 10/15/18 0456 Results 24hrs Laboratory Tests Test 10/14/18 17:28 10/14/18 20:18 10/15/18 04:56 10/15/18 08:17 Bedside Glucose 137 163 141 Sodium Level 143 Potassium Level 4.4 Chloride Level 108 Carbon Dioxide Level 26 Anion Gap 9 Blood Urea Nitrogen 27 H Creatinine 7.28 H Est Glomerular Filtrat 8 L Rate mL/min Glucose Level 148 Calcium Level 8.7 Phenytoin (Dilantin) < 3.0 L Level Valproic Acid (Depakene) 45 L Level Test 10/15/18 13:08 Bedside Glucose 177 Exam/Review of Systems Exam Vitals Vital Signs Date Temp Pulse Resp B/P (MAP) Pulse Ox O2 O2 Flow FiO2 Time Delivery Rate 10/15/18 72 18 97 21 08:53 10/15/18 97.8 189/89 07:33 (122) 10/15/18 Room Air 02:00 10/13/18 2.0 08:30 Intake and Output 10/14/18 10/14/18 10/15/18 1414:59 22:59 06:59 IntakeIntake Total 360 ml 477.5 ml 370 ml BalanceBalance 360 ml 477.5 ml 370 ml Results Results 24hrs Laboratory Tests Test 10/14/18 17:28 10/14/18 20:18 10/15/18 04:56 10/15/18 08:17 Bedside Glucose 137 163 141 Sodium Level 143 Potassium Level 4.4 Chloride Level 108 Carbon Dioxide Level 26 Anion Gap 9 Blood Urea Nitrogen 27 H Creatinine 7.28 H Est Glomerular Filtrat 8 L Rate mL/min Glucose Level 148 Calcium Level 8.7 Phenytoin (Dilantin) < 3.0 L Level Valproic Acid (Depakene) 45 L Level Test 10/15/18 13:08 Bedside Glucose 177 Medications Medication Current Medications IV Flush (NS 3 ml) 3 ml PER PROTOCOL IV ; Start 10/08/18 at 23:00 Acetaminophen (Tylenol Tab) 650 mg Q6H PRN PO .PAIN 1-3 OR TEMP; Start 10/08/18 at 23:00 Albuterol/ Ipratropium (Duoneb) 3 ml Q2H RESP THERAPY PRN HHN SHORTNESS OF BREATH; Start 10/08/18 at 23:00 Cefepime HCl 50 ml @ 100 mls/hr Q24H IVPB Last administered on 10/15/18 00:36; Admin Dose 100 MLS/HR; Start 10/09/18 at 00:30 Lorazepam (Ativan) 1 mg Q2H PRN IV seizure; Start 10/09/18 at 18:30 Ondansetron HCl (Zofran Inj) 4 mg Q4H PRN IV NAUSEA/VOMITING; Start 10/09/18 at 18:30 Famotidine (Pepcid Iv) 20 mg DAILY IV Last administered on 10/15/18 09:10; Admin Dose 20 MG; Start 10/10/18 at 09:00 Albuterol (Proventil 0.083% (Neb)) 1.25 mg Q2H RESP THERAPY PRN HHN WHEEZING AND RESP DISTRESS Last administered on 10/13/18 20:26; Admin Dose 1.25 MG; Start 10/09/18 at 18:30 Albuterol (Proventil 0.083% (Neb)) 1.25 mg Q6H RESP THERAPY HHN Last adm inistered on 10/15/18 08:53; Admin Dose 1.25 MG; Start 10/09/18 at 20:00 Aspirin (Halfprin) 81 mg DAILY PO Last administered on 10/15/18 09:10; Admin Dose 81 MG; Start 10/10/18 at 09:00 Diagnostic Test (Pha) (Accu-Chek) 1 ea 02 XX ; Start 10/10/18 at 02:00 Insulin Aspart (Novolog Insulin Pen) NOVOLOG *MILD* ALGORITHM WITH MEALS BEDTIME SC Last administered on 10/15/18 13:17; Admin Dose 1 UNIT; Start 10/09/18 at 21:00 Epoetin Isidro-epbx (RETACRIT(esrd)) 10,000 unit MoWeFr@1700 SC Last administered on 10/13/18 17:29; Admin Dose 10,000 UNIT; Start 10/11/18 at 17:00; Status Hold Sevelamer Carbonate (Renvela) 1,600 mg WITH MEALS PO Last administered on 10/15/18 13:15; Admin Dose 1,600 MG; Start 10/10/18 at 18:00 Cholecalciferol (Vitamin D) 1,000 unit DAILY PO Last administered on 10/15/18 09:09; Admin Dose 1,000 UNIT; Start 10/11/18 at 09:00 Multivit/Ca Carb/ B Cmplx/FA/Prenat (Giselle-Cristin) 1 tab DAILY PO Last administered on 10/15/18 09:09; Admin Dose 1 TAB; Start 10/11/18 at 09:00 Metronidazole 100 ml @ 100 mls/hr Q8 IVPB Last administered on 10/15/18 05:43; Admin Dose 100 MLS/HR; Start 10/11/18 at 22:00 Heparin Sodium (Porcine) (Heparin (5000 Units/1ml)) 5,000 unit Q8 SC Last administered on 10/15/18 13:17; Admin Dose 5,000 UNIT; Start 10/11/18 at 22:00 Hydralazine HCl (Apresoline) 10 mg Q4H PRN IV ELEVATED BLOOD PRESSURE Last administered on 10/13/18 02:14; Admin Dose 10 MG; Start 10/11/18 at 23:30 Heparin Sodium (Porcine) (Heparin (1000 Units/ml)) 3,200 unit AFTER DIALYSIS CATHETER Last administered on 10/13/18 13:19; Admin Dose 3,200 UNIT; Start 10/13/18 at 10:30 Divalproex Sodium (Depakote) 750 mg TID PO Last administered on 10/15/18 13:15; Admin Dose 750 MG; Start 10/14/18 at 21:00 Valproate Sodium 750 mg/Sodium Chloride 57.5 ml @ 55 mls/hr ONCE ONCE IVPB ; Start 10/15/18 at 13:30; Stop 10/15/18 at 14:32; Status GORDON TA NP October 15, 2018 13:35
[2018-10-15] MEDS ORDERED: VALPROATE INJ 750 MG in SOD CHLORIDE 0.9% 50 ML IVPB ONE (14:30)
[2018-10-15] MEDS: HEPARIN 1000 UNITS/ML 10 ML INJ CATHETER SCH (18:35)
[2018-10-15] MEDS: VALPROIC ACID LIQUID CUP 250 MG/5 ML CUP PO SCH (23:37)
[2018-10-16] MEDS: CEFEPIME 1GM/50 ML (PMX) 50 ML IVPB SCH (00:28)
[2018-10-16 01:48] VITALS: BP 132/71; PULSE 72; RESP 18
[2018-10-16] MEDS: ACCU-CHEK XX SCH (02:00)
[2018-10-16] MEDS: ALBUTEROL 0.083% (NEB) 2.5 MG/3 ML AMP HHN SCH ×4 (02:17→19:53)
[2018-10-16] MEDS: metroNIDAZOLE 500 MG/NS (PMX) 100 ML IVPB SCH ×3 (05:36→21:36)
[2018-10-16] MEDS: HEPARIN 5,000 UNIT/1 ML VIAL SC SCH ×3 (05:44→21:44)
[2018-10-16 07:28] VITALS: BP 128/59; PULSE 80; RESP 16
[2018-10-16] MEDS: INSULIN ASPART [NOVOLOG] 3 ML PEN SC SCH ×4 (08:00→21:00)
[2018-10-16] MEDS: VALPROIC ACID LIQUID CUP 250 MG/5 ML CUP PO SCH ×3 (08:11→21:36)
[2018-10-16] MEDS: ASPIRIN (EC) 81 MG TAB PO SCH (08:11)
[2018-10-16] MEDS: MULTIVIT/CA CARB/B CMPLX/FA TAB PO SCH (08:11)
[2018-10-16] MEDS: CHOLECALCIFEROL 1,000 UNIT TAB PO SCH (08:11)
[2018-10-16] MEDS: SEVELAMER CARBONATE 800 MG TABLET PO SCH ×3 (08:11→17:47)
[2018-10-16] MEDS: FAMOTIDINE 20 MG TAB PO SCH (08:19)
--- NOTE | 2018-10-16 11:35 | PN ---
Date/Time of Note Date/Time of Note DATE: 10/16/18 TIME: 11:35 Objective Vitals Vital Signs Date Temp Pulse Resp B/P (MAP) Pulse Ox O2 O2 Flow FiO2 Time Delivery Rate 10/16/18 78 18 96 09:04 10/16/18 98.0 128/59 Room Air 07:28 (82) 10/16/18 21 02:17 10/13/18 2.0 08:30 Intake and Output 10/15/18 10/15/18 10/16/18 1515:00 23:00 07:00 IntakeIntake Total 100 ml 150 ml OutputOutput Total 1990 ml BalanceBalance -1890 ml 150 ml Results Result Diagram: 10/14/18 0438 10/16/18 0437 Medications Medications Current Medications IV Flush (NS 3 ml) 3 ml PER PROTOCOL IV ; Start 10/08/18 at 23:00 Acetaminophen (Tylenol Tab) 650 mg Q6H PRN PO .PAIN 1-3 OR TEMP; Start 10/08/18 at 23:00 Albuterol/ Ipratropium (Duoneb) 3 ml Q2H RESP THERAPY PRN HHN SHORTNESS OF BREATH; Start 10/08/18 at 23:00 Cefepime HCl 50 ml @ 100 mls/hr Q24H IVPB Last administered on 10/16/18at 00:28; Admin Dose 100 MLS/HR; Start 10/09/18 at 00:30 Lorazepam (Ativan) 1 mg Q2H PRN IV seizure; Start 10/09/18 at 18:30 Ondansetron HCl (Zofran Inj) 4 mg Q4H PRN IV NAUSEA/VOMITING; Start 10/09/18 at 18:30 Albuterol (Proventil 0.083% (Neb)) 1.25 mg Q2H RESP THERAPY PRN HHN WHEEZING AND RESP DISTRESS Last administered on 10/13/18at 20:26; Admin Dose 1.25 MG; Start 10/09/18 at 18:30 Albuterol (Proventil 0.083% (Neb)) 1.25 mg Q6H RESP THERAPY HHN Last administered on 10/16/18at 08:54; Admin Dose 1.25 MG; Start 10/09/18 at 20:00 Aspirin (Halfprin) 81 mg DAILY PO Last administered on 5/4/19at 08:11; Admin Dose 81 MG; Start 10/10/18 at 09:00 Diagnostic Test (Pha) (Accu-Chek) 1 ea 02 XX ; Start 10/10/18 at 02:00 Insulin Aspart (Novolog Insulin Pen) NOVOLOG *MILD* ALGORITHM WITH MEALS BEDTIME SC Last administered on 10/15/18 13:17; Admin Dose 1 UNIT; Start 10/09/18 at 21:00 Epoetin Isidro-epbx (RETACRIT(esrd)) 10,000 unit MoWeFr@1700 SC Last administered on 10/13/18 17:29; Admin Dose 10,000 UNIT; Start 10/11/18 at 17:00; Status Hold Sevelamer Carbonate (Renvela) 1,600 mg WITH MEALS PO Last administered on 10/16/18 08:11; Admin Dose 1,600 MG; Start 10/10/18 at 18:00 Cholecalciferol (Vitamin D) 1,000 unit DAILY PO Last administered on 10/16/18 08:11; Admin Dose 1,000 UNIT; Start 10/11/18 at 09:00 Multivit/Ca Carb/ B Cmplx/FA/Prenat (Giselle-Cristin) 1 tab DAILY PO Last administered on 10/16/18 08:11; Admin Dose 1 TAB; Start 10/11/18 at 09:00 Metronidazole 100 ml @ 100 mls/hr Q8 IVPB Last administered on 10/16/18 05:36; Admin Dose 100 MLS/HR; Start 10/11/18 at 22:00 Heparin Sodium (Porcine) (Heparin (5000 Units/1ml)) 5,000 unit Q8 SC Last administered on 10/16/18 05:44; Admin Dose 5,000 UNIT; Start 10/11/18 at 22:00 Hydralazine HCl (Apresoline) 10 mg Q4H PRN IV ELEVATED BLOOD PRESSURE Last administered on 10/13/18 02:14; Admin Dose 10 MG; Start 10/11/18 at 23:30 Heparin Sodium (Porcine) (Heparin (1000 Units/ml)) 3,200 unit AFTER DIALYSIS CATHETER Last administered on 10/15/18 18:35; Admin Dose 3,200 UNIT; Start 10/13/18 at 10:30 Famotidine (Pepcid) 20 mg DAILY PO Last administered on 10/16/18at 08:19; Admin Dose 20 MG; Start 10/16/18 at 09:00 Valproate Sodium (Depakene Liquid Cup) 750 mg TID PO Last administered on 10/16/18at 08:11; Admin Dose 750 MG; Start 10/15/18 at 23:30 VTE Pro[place]axis [place] [facility] [place]: 3 [place]CD applied [place] [facility] [place] [facility] [place] Yes Lines/Catheters IV Catheter Type: Dong in Place: No Assessment/Plan Hospital Course Subjective Patient is at baseline per nursing staff, patient is alert and can track and follow some command, however does not interact speech cormier Objective physical exam General: Patient is laying in bed does not answer questions but is widely alert Mentation: Patient is alert and somewhat oriented to self Head: Normocephalic atraumatic Eyes: EOMI, pupils reactive to light Neck: Supple, nontender, midline Respiratory: Clear to auscultation bilaterally Cardiovascular: regular rate, no obvious murmurs Gastrointestinal: non-tender to palpation, bowel sounds heard. Neurological: Moves all extremities spontaneously Skin: No new skin lesions ASSESSMENT & PLAN 58-year-old male with comorbidities including seizure disorder, end-stage renal disease on hemodialysis, hypertension, chronic encephalopathy, and diabetes mellitus, who was brought to the emergency room after breakthrough seizures, who was admitted to inpatient setting for further treatment and evaluation. 1. Seizure disorder. -Status post evaluation by neurology. -Continue anticonvulsants. 2. Hypertensive urgency. -Continue antihypertensives. -Adjust antihypertensives to obtain optimal blood pressure control. 3. Diabetes mellitus. -Hemoglobin A1c 6.6. -Continue sliding scale insulin. 4. End-stage renal disease on hemodialysis -Hemodialysis as per nephrology. 5. Suspected aspiration pneumonia. -Continue antimicrobials including coverage for anaerobes. 6. Normocytic, normochromic anemia. -Probably anemia of chronic kidney disease -Continue Epogen. 7. History of multiple strokes. -Continue aspirin. 8. Dyslipidemia. -Continue statins. 9. Fluids, electrolytes, and nutrition. -Renal, carbohydrate controlled diet. 10. DVT prophylaxis -Subcutaneous heparin. 11. Plan. -Ensure stability of valproic acid, continue IV antibiotic for 1 more day, follow-up chest x-ray, possible DC tomorrow after confirming with patient gets adequate care at home. MIGUEL OWENS October 16, 2018 11:35
--- NOTE | 2018-10-16 11:50 | CONS ---
Assessment/Plan Assessment/Plan Hospital Course (Demo Recall) 1. End-stage renal disease. next HD tomorrow 2. Anemia. Continue to monitor hemoglobin and hematocrit levels. Continue Epogen. 3. Mineral bone disorder. Monitor calcium and phosphorus levels. Continue phosphate binders. 4. Hypokalemia. Continue to monitor and replete as needed. 5. Seizure disorder. Continue current medical management. 6. History of cerebrovascular accident. Continue current treatment plan. 7. Chronic encephalopathy. Continue to monitor. 8. Hypertension. Continue current blood pressure regimen. Continue ultrafiltration with dialysis. 9. Neuropathy. Continue current treatment plan. 10. Pneumonia. The patient is completing antibiotic course. Consultation Date/Type/Reason Admit Date/Time Oct 08, 2018 at 18:36 Initial Consult Date Requesting Provider: COLUMBA LE MD Date/Time of Note DATE: 10/16/18 TIME: 11:50 24 HR Interval Summary Free Text/Dictation overnight events reviewed s/p HD yesterday d/w rn gen nad cv rrr pulm ctab abd soft. nd. nt +bs ext: no edema Exam/Review of Systems Exam Vitals Vital Signs Date Temp Pulse Resp B/P (MAP) Pulse Ox O2 O2 Flow FiO2 Time Delivery Rate 10/16/18 78 18 96 09:04 10/16/18 98.0 128/59 Room Air 07:28 (82) 10/16/18 21 02:17 10/13/18 2.0 08:30 Intake and Output 10/15/18 10/15/18 10/16/18 1414:59 22:59 06:59 IntakeIntake Total 100 ml 150 ml OutputOutput Total 1990 ml BalanceBalance -1890 ml 150 ml Results Result Diagram: 10/14/18 0438 10/16/18 0437 Results 24hrs Laboratory Tests Test 10/15/18 13:08 10/15/18 18:09 10/15/18 21:21 10/16/18 04:37 Bedside Glucose 177 119 138 Sodium Level 141 Potassium Level 3.8 Chloride Level 104 Carbon Dioxide Level 29 Anion Gap 8 Blood Urea Nitrogen 17 # Creatinine 4.88 #H Est Glomerular Filtrat 12 L Rate mL/min Glucose Level 114 Calcium Level 8.1 L Valproic Acid (Depakene) 69 Level Test 10/16/18 08:02 Bedside Glucose 124 Medications Medication Current Medications IV Flush (NS 3 ml) 3 ml PER PROTOCOL IV ; Start 10/08/18 at 23:00 Acetaminophen (Tylenol Tab) 650 mg Q6H PRN PO .PAIN 1-3 OR TEMP; Start 10/08/18 at 23:00 Albuterol/ Ipratropium (Duoneb) 3 ml Q2H RESP THERAPY PRN HHN SHORTNESS OF BREATH; Start 10/08/18 at 23:00 Cefepime HCl 50 ml @ 100 mls/hr Q24H IVPB Last administered on 10/16/18at 00:28; Admin Dose 100 MLS/HR; Start 10/09/18 at 00:30 Lorazepam (Ativan) 1 mg Q2H PRN IV seizure; Start 10/09/18 at 18:30 Ondansetron HCl (Zofran Inj) 4 mg Q4H PRN IV NAUSEA/VOMITING; Start 10/09/18 at 18:30 Albuterol (Proventil 0.083% (Neb)) 1.25 mg Q2H RESP THERAPY PRN HHN WHEEZING AND RESP DISTRESS Last administered on 10/13/18 20:26; Admin Dose 1.25 MG; Start 10/09/18 at 18:30 Albuterol (Proventil 0.083% (Neb)) 1.25 mg Q6H RESP THERAPY HHN Last administered on 10/16/18 08:54; Admin Dose 1.25 MG; Start 10/09/18 at 20:00 Aspirin (Halfprin) 81 mg DAILY PO Last administered on 10/16/18 08:11; Admin Dose 81 MG; Start 10/10/18 at 09:00 Diagnostic Test (Pha) (Accu-Chek) 1 ea 02 XX ; Start 10/10/18 at 02:00 Insulin Aspart (Novolog Insulin Pen) NOVOLOG *MILD* ALGORITHM WITH MEALS BEDTIME SC Last administered on 10/15/18 13:17; Admin Dose 1 UNIT; Start 10/09/18 at 21:00 Epoetin Isidro-epbx (RETACRIT(esrd)) 10,000 unit MoWeFr@1700 SC Last administered on 10/13/18 17:29; Admin Dose 10,000 UNIT; Start 10/11/18 at 17:00; Status Hold Sevelamer Carbonate (Renvela) 1,600 mg WITH MEALS PO Last administered on 10/16/18 08:11; Admin Dose 1,600 MG; Start 10/10/18 at 18:00 Cholecalciferol (Vitamin D) 1,000 unit DAILY PO Last administered on 10/16/18 08:11; Admin Dose 1,000 UNIT; Start 10/11/18 at 09:00 Multivit/Ca Carb/ B Cmplx/FA/Prenat (Giselle-Cristin) 1 tab DAILY PO Last ad ministered on 10/16/18 08:11; Admin Dose 1 TAB; Start 10/11/18 at 09:00 Metronidazole 100 ml @ 100 mls/hr Q8 IVPB Last administered on 10/16/18 05:36; Admin Dose 100 MLS/HR; Start 10/11/18 at 22:00 Heparin Sodium (Porcine) (Heparin (5000 Units/1ml)) 5,000 unit Q8 SC Last administered on 10/16/18 05:44; Admin Dose 5,000 UNIT; Start 10/11/18 at 22:00 Hydralazine HCl (Apresoline) 10 mg Q4H PRN IV ELEVATED BLOOD PRESSURE Last administered on 10/13/18 02:14; Admin Dose 10 MG; Start 10/11/18 at 23:30 Heparin Sodium (Porcine) (Heparin (1000 Units/ml)) 3,200 unit AFTER DIALYSIS CATHETER Last administered on 10/15/18 18:35; Admin Dose 3,200 UNIT; Start 10/13/18 at 10:30 Famotidine (Pepcid) 20 mg DAILY PO Last administered on 10/16/18 08:19; Admin Dose 20 MG; Start 10/16/18 at 09:00 Valproate Sodium (Depakene Liquid Cup) 750 mg TID PO Last administered on 10/16/18 08:11; Admin Dose 750 MG; Start 10/15/18 at 23:30 MERCY OWENS MD October 16, 2018 11:50
[2018-10-16 14:48] VITALS: BP 114/54; PULSE 79; RESP 16
[2018-10-16] MEDS ORDERED: GLUCAGON 1 MG INJ IM PRN (16:30)
[2018-10-16] MEDS ORDERED: GLUCOSE GEL 15 GRAM TUBE BUCCAL PRN (16:30)
[2018-10-16] MEDS ORDERED: GLUCOSE GEL 15 GRAM TUBE PO PRN ×2 (16:30)
[2018-10-16] MEDS ORDERED: DEXTROSE 50% 50 ML SYRINGE IV PRN ×2 (16:30)
[2018-10-16] MEDS: ERYTHROMYCIN 1 GM OPH OINT BOTH EYES SCH ×2 (17:47→21:55)
[2018-10-16 19:55] VITALS: BP 137/65; PULSE 74; RESP 18
[2018-10-17] VITALS (23 sets, daily range): BP systolic 88–180; BP diastolic 59–94; PULSE 72–89; RESP 16–19
[2018-10-17] MEDS: CEFEPIME 1GM/50 ML (PMX) 50 ML IVPB SCH (00:23)
[2018-10-17] MEDS: ONDANSETRON 4 MG INJ IV PRN ×2 (01:34→13:40)
[2018-10-17] MEDS: ALBUTEROL 0.083% (NEB) 2.5 MG/3 ML AMP HHN SCH ×5 (02:00→19:32)
[2018-10-17] MEDS: ACCU-CHEK XX SCH (02:00)
[2018-10-17] MEDS: hydrALAzine 20 MG INJ IV PRN (02:49)
[2018-10-17] MEDS: metroNIDAZOLE 500 MG/NS (PMX) 100 ML IVPB SCH ×3 (05:49→23:50)
[2018-10-17] MEDS: HEPARIN 5,000 UNIT/1 ML VIAL SC SCH ×3 (05:49→21:36)
[2018-10-17] MEDS: INSULIN ASPART [NOVOLOG] 3 ML PEN SC SCH ×4 (08:00→21:00)
[2018-10-17] MEDS: VALPROIC ACID LIQUID CUP 250 MG/5 ML CUP PO SCH ×3 (08:50→21:28)
[2018-10-17] MEDS: CHOLECALCIFEROL 1,000 UNIT TAB PO SCH (08:51)
[2018-10-17] MEDS: FAMOTIDINE 20 MG TAB PO SCH (08:51)
[2018-10-17] MEDS: MULTIVIT/CA CARB/B CMPLX/FA TAB PO SCH (08:51)
[2018-10-17] MEDS: ASPIRIN (EC) 81 MG TAB PO SCH (08:51)
[2018-10-17] MEDS: SEVELAMER CARBONATE 800 MG TABLET PO SCH ×3 (08:51→18:01)
[2018-10-17] MEDS: ERYTHROMYCIN 1 GM OPH OINT BOTH EYES SCH ×4 (08:52→21:28)
--- NOTE | 2018-10-17 10:34 | PN ---
Date/Time of Note Date/Time of Note DATE: 10/17/18 TIME: 10:32 Objective Vitals Vital Signs Date Temp Pulse Resp B/P (MAP) Pulse Ox O2 O2 Flow FiO2 Time Delivery Rate 10/17/18 85 18 96 21 08:04 10/17/18 97.7 131/60 Room Air 07:15 (83) 10/13/18 2.0 08:30 Intake and Output 10/16/18 10/16/18 10/17/18 1515:00 23:00 07:00 IntakeIntake Total 260 ml 50 ml BalanceBalance 260 ml 50 ml Results Result Diagram: 10/17/18 0426 10/17/18 0426 Medications Medications Current Medications IV Flush (NS 3 ml) 3 ml PER PROTOCOL IV ; Start 10/08/18 at 23:00 Acetaminophen (Tylenol Tab) 650 mg Q6H PRN PO .PAIN 1-3 OR TEMP; Start 10/08/18 at 23:00 Albuterol/ Ipratropium (Duoneb) 3 ml Q2H RESP THERAPY PRN HHN SHORTNESS OF BREATH; Start 10/08/18 at 23:00 Cefepime HCl 50 ml @ 100 mls/hr Q24H IVPB Last administered on 10/17/18at 00:23; Admin Dose 100 MLS/HR; Start 10/09/18 at 00:30 Lorazepam (Ativan) 1 mg Q2H PRN IV seizure; Start 10/09/18 at 18:30 Ondansetron HCl (Zofran Inj) 4 mg Q4H PRN IV NAUSEA/VOMITING Last administered on 10/17/18at 01:34; Admin Dose 4 MG; Start 10/09/18 at 18:30 Albuterol (Proventil 0.083% (Neb)) 1.25 mg Q2H RESP THERAPY PRN HHN WHEEZING AND RESP DISTRESS Last administered on 10/13/18 20:26; Admin Dose 1.25 MG; Start 10/09/18 at 18:30 Albuterol (Proventil 0.083% (Neb)) 1.25 mg Q6H RESP THERAPY HHN Last administered on 10/17/18 08:04; Admin Dose 1.25 MG; Start 10/09/18 at 20:00 Aspirin (Halfprin) 81 mg DAILY PO Last administered on 10/17/18 08:51; Admin Dose 81 MG; Start 10/10/18 at 09:00 Diagnostic Test (Pha) (Accu-Chek) 1 ea 02 XX ; Start 10/10/18 at 02:00 Insulin Aspart (Novolog Insulin Pen) NOVOLOG *MILD* ALGORITHM WITH MEALS BEDTIME SC Last administered on 10/15/18 13:17; Admin Dose 1 UNIT; Start 10/09/18 at 21:00 Epoetin Isidro-epbx (RETACRIT(esrd)) 10,000 unit MoWeFr@1700 SC Last administered on 10/13/18 17:29; Admin Dose 10,000 UNIT; Start 10/11/18 at 17:00; Status Hold Sevelamer Carbonate (Renvela) 1,600 mg WITH MEALS PO Last administered on 10/17/18 08:51; Admin Dose 1,600 MG; Start 10/10/18 at 18:00 Cholecalciferol (Vitamin D) 1,000 unit DAILY PO Last administered on 10/17/18 08:51; Admin Dose 1,000 UNIT; Start 10/11/18 at 09:00 Multivit/Ca Carb/ B Cmplx/FA/Prenat (Giselle-Cristin) 1 tab DAILY PO Last administered on 10/17/18 08:51; Admin Dose 1 TAB; Start 10/11/18 at 09:00 Metronidazole 100 ml @ 100 mls/hr Q8 IVPB Last administered on 10/17/18 05:49; Admin Dose 100 MLS/HR; Start 10/11/18 at 22:00 Heparin Sodium (Porcine) (Heparin (5000 Units/1ml)) 5,000 unit Q8 SC Last administered on 10/17/18 05:49; Admin Dose 5,000 UNIT; Start 10/11/18 at 22:00 Hydralazine HCl (Apresoline) 10 mg Q4H PRN IV ELEVATED BLOOD PRESSURE Last administered on 10/17/18 02:49; Admin Dose 10 MG; Start 10/11/18 at 23:30 Heparin Sodium (Porcine) (Heparin (1000 Units/ml)) 3,200 unit AFTER DIALYSIS CATHETER Last administered on 10/15/18 18:35; Admin Dose 3,200 UNIT; Start 10/13/18 at 10:30 Famotidine (Pepcid) 20 mg DAILY PO Last administered on 10/17/18at 08:51; Admin Dose 20 MG; Start 10/16/18 at 09:00 Valproate Sodium (Depakene Liquid Cup) 750 mg TID PO Last administered on 10/17/18at 08:50; Admin Dose 750 MG; Start 10/15/18 at 23:30 Erythromycin (Erythromycin Oph Oint) 1 applic QID BOTH EYES Last administered on 10/17/18at 08:52; Admin Dose 1 APPLIC; Start 10/16/18 at 17:00 Miscellaneous Information 1 ea NOTE XX ; Start 10/16/18 at 16:30 Glucose (Glutose) 15 gm Q15M PRN PO DECREASED GLUCOSE; Start 10/16/18 at 16:30 Glucose (Glutose) 22.5 gm Q15M PRN PO DECREASED GLUCOSE; Start 10/16/18 at 16:30 Dextrose (D50w Syringe) 25 ml Q15M PRN IV DECREASED GLUCOSE; Start 10/16/18 at 16:30 Dextrose (D50w Syringe) 50 ml Q15M PRN IV DECREASED GLUCOSE; Start 10/16/18 at 16:30 Glucagon (Glucagen) 1 mg Q15M PRN IM DECREASED GLUCOSE; Start 10/16/18 at 16:30 Glucose (Glutose) 15 gm Q15M PRN BUCCAL DECREASED GLUCOSE; Start 10/16/18 at 16:30 VTE Prophylaxis Risk score (from [facility]0 risk: 4 [place] [facility] [place] Lines/Catheters IV Catheter Type: Dong in Place: No Assessment/Plan Hospital Course Subjective Spoke to , patient's baseline is walking, talking, full cognition, patient still not speaking. Objective physical exam General: Patient is laying in bed does not answer questions but is widely alert Mentation: Patient is alert and not fully oriented Head: Normocephalic atraumatic Eyes: EOMI, pupils reactive to light Neck: Supple, nontender, midline Respiratory: Clear to auscultation bilaterally Cardiovascular: regular rate, no obvious murmurs Gastrointestinal: non-tender to palpation, bowel sounds heard. Neurological: Moves all extremities spontaneously Skin: No new skin lesions ASSESSMENT & PLAN 58-year-old male with comorbidities including seizure disorder, end-stage renal disease on hemodialysis, hypertension, chronic encephalopathy, and diabetes mellitus, who was brought to the emergency room after breakthrough seizures, who was admitted to inpatient setting for further treatment and evaluation. Acute encephalopathy -Likely set off by Keppra as patient has a history of doing very poorly on Kep pra with major side effects per , similar episode in the past -We will need to speak with neurology as patient's baseline is walking, talking, full cognition, patient does not speak at this time and is not ambulating -Patient was previously on Dilantin, now on valproic acid -Neurology recommendations appreciated 1. Seizure disorder. -Status post evaluation by neurology. -Continue anticonvulsants. 2. Hypertensive urgency. -Continue antihypertensives. -Adjust antihypertensives to obtain optimal blood pressure control. 3. Diabetes mellitus. -Hemoglobin A1c 6.6. -Continue sliding scale insulin. 4. End-stage renal disease on hemodialysis -Hemodialysis as per nephrology. 5. Suspected aspiration pneumonia. -Continue antimicrobials including coverage for anaerobes. 6. Normocytic, normochromic anemia. -Probably anemia of chronic kidney disease -Continue Epogen. 7. History of multiple strokes. -Continue aspirin. 8. Dyslipidemia. -Continue statins. 9. Fluids, electrolytes, and nutrition. -Renal, carbohydrate controlled diet. 10. DVT prophylaxis -Subcutaneous heparin. 11. Plan. -We will need to have resolution of patient's altered mental status before discharge, patient baseline is walking, talking, full condition. Will need to speak to neurology about change in medication possibly. MIGUEL OWENS October 17, 2018 10:34
--- NOTE | 2018-10-17 12:01 | CONS ---
Assessment/Plan Assessment/Plan Hospital Course (Demo Recall) 1. End-stage renal disease. HD today 2. Anemia. Continue to monitor hemoglobin and hematocrit levels. Continue Epogen. 3. Mineral bone disorder. Monitor calcium and phosphorus levels. Continue phosphate binders. 4. Hypokalemia. Continue to monitor and replete as needed. 5. Seizure disorder. Continue current medical management. 6. History of cerebrovascular accident. Continue current treatment plan. 7. Chronic encephalopathy. Continue to monitor. 8. Hypertension. Continue current blood pressure regimen. Continue ultrafiltration with dialysis. 9. Neuropathy. Continue current treatment plan. 10. Pneumonia. The patient is completing antibiotic course. Consultation Date/Type/Reason Admit Date/Time Oct 08, 2018 at 18:36 Initial Consult Date Requesting Provider: COLUMBA LE MD Date/Time of Note DATE: 10/17/18 TIME: 12:01 24 HR Interval Summary Free Text/Dictation no fever no n/v d/w rn gen nad cv rrr pulm fine bibasilar rales abd soft, nd ,nt +bs ext: no edema Subjective hx not possible: pt non-verbal Exam/Review of Systems Exam Vitals Vital Signs Date Temp Pulse Resp B/P (MAP) Pulse Ox O2 O2 Flow FiO2 Time Delivery Rate 10/17/18 85 18 96 21 08:04 10/17/18 97.7 131/60 Room Air 07:15 (83) 10/13/18 2.0 08:30 Intake and Output 10/16/18 10/16/18 10/17/18 1515:00 23:00 07:00 IntakeIntake Total 260 ml 50 ml BalanceBalance 260 ml 50 ml Results Result Diagram: 10/17/18 0426 10/17/18 0426 Results 24hrs Laboratory Tests Test 10/16/18 13:01 10/16/18 17:26 10/16/18 21:41 10/17/18 04:26 Bedside Glucose 130 126 149 White Blood Count 9.8 Red Blood Count 4.23 L Hemoglobin 12.2 L Hematocrit 37.1 L Mean Corpuscular Volume 87.7 Mean Corpuscular 28.8 L Hemoglobin Mean Corpuscular 32.9 Hemoglobin Concent Red Cell Distribution 13.2 Width Platelet Count 351 Mean Platelet Volume 10.6 H Immature Granulocytes % 2.900 H Neutrophils % 76.9 Lymphocytes % 8.6 L Monocytes % 9.1 Eosinophils % 1.9 Basophils % 0.6 Nucleated Red Blood 0.0 Cells % Immature Granulocytes # 0.280 H Neutrophils # 7.5 Lymphocytes # 0.8 Monocytes # 0.9 Eosinophils # 0.2 Basophils # 0.1 Nucleated Red Blood 0.0 Cells # Sodium Level 145 H Potassium Level 4.0 Chloride Level 105 Carbon Dioxide Level 27 Anion Gap 13 Blood Urea Nitrogen 30 #H Creatinine 7.26 #H Est Glomerular Filtrat 8 L Rate mL/min Glucose Level 167 Calcium Level 8.1 L Phosphorus Level 5.7 H Magnesium Level 1.9 Valproic Acid (Depakene) 61 Level Test 10/17/18 08:21 Bedside Glucose 123 Medications Medication Current Medications IV Flush (NS 3 ml) 3 ml PER PROTOCOL IV ; Start 10/08/18 at 23:00 Acetaminophen (Tylenol Tab) 650 mg Q6H PRN PO .PAIN 1-3 OR TEMP; Start 10/08/18 at 23:00 Albuterol/ Ipratropium (Duoneb) 3 ml Q2H RESP THERAPY PRN HHN SHORTNESS OF BREATH; Start 10/08/18 at 23:00 Cefepime HCl 50 ml @ 100 mls/hr Q24H IVPB Last administered on 10/17/18at 00:23; Admin Dose 100 MLS/HR; Start 10/09/18 at 00:30 Lorazepam (Ativan) 1 mg Q2H PRN IV seizure; Start 10/09/18 at 18:30 Ondansetron HCl (Zofran Inj) 4 mg Q4H PRN IV NAUSEA/VOMITING Last administered on 10/17/18at 01:34; Admin Dose 4 MG; Start 10/09/18 at 18:30 Albuterol (Proventil 0.083% (Neb)) 1.25 mg Q2H RESP THERAPY PRN HHN WHEEZING AND RESP DISTRESS Last administered on 10/13/18at 20:26; Admin Dose 1.25 MG; Start 10/09/18 at 18:30 Albuterol (Proventil 0.083% (Neb)) 1.25 mg Q6H RESP THERAPY HHN Last administered on 10/17/18at 08:04; Admin Dose 1.25 MG; Start 10/09/18 at 20:00 Aspirin (Halfprin) 81 mg DAILY PO Last administered on 10/17/18 08:51; Admin Dose 81 MG; Start 10/10/18 at 09:00 Diagnostic Test (Pha) (Accu-Chek) 1 ea 02 XX ; Start 10/10/18 at 02:00 Insulin Aspart (Novolog Insulin Pen) NOVOLOG *MILD* ALGORITHM WITH MEALS BEDTIME SC Last administered on 10/15/18 13:17; Admin Dose 1 UNIT; Start 10/09/18 at 21:00 Epoetin Isidro-epbx (RETACRIT(esrd)) 10,000 unit MoWeFr@1700 SC Last administered on 10/13/18 17:29; Admin Dose 10,000 UNIT; Start 10/11/18 at 17:00; Status Hold Sevelamer Carbonate (Renvela) 1,600 mg WITH MEALS PO Last administered on 10/17/18 08:51; Admin Dose 1,600 MG; Start 10/10/18 at 18:00 Cholecalciferol (Vitamin D) 1,000 unit DAILY PO Last administered on 10/17/18 08:51; Admin Dose 1,000 UNIT; Start 10/11/18 at 09:00 Multivit/Ca Carb/ B Cmplx/FA/Prenat (Giselle-Cristin) 1 tab DAILY PO Last administered on 10/17/18 08:51; Admin Dose 1 TAB; Start 10/11/18 at 09:00 Metronidazole 100 ml @ 100 mls/hr Q8 IVPB Last administered on 10/17/18 05:49; Admin Dose 100 MLS/HR; Start 10/11/18 at 22:00 Heparin Sodium (Porcine) (Heparin (5000 Units/1ml)) 5,000 unit Q8 SC Last administered on 10/17/18 05:49; Admin Dose 5,000 UNIT; Start 10/11/18 at 22:00 Hydralazine HCl (Apresoline) 10 mg Q4H PRN IV ELEVATED BLOOD PRESSURE Last administered on 10/17/18 02:49; Admin Dose 10 MG; Start 10/11/18 at 23:30 Heparin Sodium (Porcine) (Heparin (1000 Units/ml)) 3,200 unit AFTER DIALYSIS CATHETER Last administered on 10/15/18 18:35; Admin Dose 3,200 UNIT; Start 5/1 /19 at 10:30 Famotidine (Pepcid) 20 mg DAILY PO Last administered on 10/17/18at 08:51; Admin Dose 20 MG; Start 10/16/18 at 09:00 Valproate Sodium (Depakene Liquid Cup) 750 mg TID PO Last administered on 10/17/18at 08:50; Admin Dose 750 MG; Start 10/15/18 at 23:30 Erythromycin (Erythromycin Oph Oint) 1 applic QID BOTH EYES Last administered on 10/17/18at 08:52; Admin Dose 1 APPLIC; Start 10/16/18 at 17:00 Miscellaneous Information 1 ea NOTE XX ; Start 10/16/18 at 16:30 Glucose (Glutose) 15 gm Q15M PRN PO DECREASED GLUCOSE; Start 10/16/18 at 16:30 Glucose (Glutose) 22.5 gm Q15M PRN PO DECREASED GLUCOSE; Start 10/16/18 at 16:30 Dextrose (D50w Syringe) 25 ml Q15M PRN IV DECREASED GLUCOSE; Start 10/16/18 at 16:30 Dextrose (D50w Syringe) 50 ml Q15M PRN IV DECREASED GLUCOSE; Start 10/16/18 at 16:30 Glucagon (Glucagen) 1 mg Q15M PRN IM DECREASED GLUCOSE; Start 10/16/18 at 16:30 Glucose (Glutose) 15 gm Q15M PRN BUCCAL DECREASED GLUCOSE; Start 10/16/18 at 16:30 MERCY OWENS MD October 17, 2018 12:01
[2018-10-17] MEDS: HEPARIN 1000 UNITS/ML 10 ML INJ CATHETER SCH (17:08)
[2018-10-18] MEDS: CEFEPIME 1GM/50 ML (PMX) 50 ML IVPB SCH (00:43)
[2018-10-18] MEDS: ALBUTEROL 0.083% (NEB) 2.5 MG/3 ML AMP HHN SCH ×4 (01:08→20:48)
[2018-10-18 01:30] VITALS: BP 95/57; PULSE 70; RESP 18
[2018-10-18] MEDS: ACCU-CHEK XX SCH (02:00)
[2018-10-18] MEDS: metroNIDAZOLE 500 MG/NS (PMX) 100 ML IVPB SCH ×3 (05:19→21:40)
[2018-10-18] MEDS: HEPARIN 5,000 UNIT/1 ML VIAL SC SCH ×3 (05:39→21:46)
[2018-10-18 07:58] VITALS: BP 116/68; PULSE 68; RESP 16
[2018-10-18] MEDS: INSULIN ASPART [NOVOLOG] 3 ML PEN SC SCH ×4 (08:00→21:47)
[2018-10-18] MEDS: ERYTHROMYCIN 1 GM OPH OINT BOTH EYES SCH ×4 (08:57→21:39)
[2018-10-18] MEDS: ASPIRIN (EC) 81 MG TAB PO SCH (08:57)
[2018-10-18] MEDS: FAMOTIDINE 20 MG TAB PO SCH (08:57)
[2018-10-18] MEDS: MULTIVIT/CA CARB/B CMPLX/FA TAB PO SCH (08:58)
[2018-10-18] MEDS: SEVELAMER CARBONATE 800 MG TABLET PO SCH ×3 (08:58→17:27)
[2018-10-18] MEDS: VALPROIC ACID LIQUID CUP 250 MG/5 ML CUP PO SCH ×3 (08:58→21:40)
[2018-10-18] MEDS: CHOLECALCIFEROL 1,000 UNIT TAB PO SCH (08:58)
--- NOTE | 2018-10-18 09:13 | PN ---
DATE: 10/18/2018 SUBJECTIVE: The patient is stable, no events overnight. OBJECTIVE: VITAL SIGNS: Blood pressure is 116/68, pulse 72, respirations 16, temperature is 98.9. HEENT: Head is normocephalic. NECK: Supple. HEART: Regular rate. LUNGS: Show diminished breath sounds at the base. ABDOMEN: Soft, nontender to palpation without rebound or guarding. EXTREMITIES: Negative for clubbing, cyanosis, no edema. DERMATOLOGIC: No rashes. MUSCULOSKELETAL: No joint effusion. NEUROLOGIC: No change in exam. MEDICATIONS: Reviewed. LABORATORY DATA: Reviewed. ASSESSMENT AND PLAN: 1. End-stage renal disease. The patient had hemodialysis yesterday, tolerated well. Plan is for di alysis again tomorrow. 2. Anemia. Monitor hemoglobin and hematocrit levels. Continue Epogen. 3. Mineral bone disorder, monitor calcium and phosphorus levels. Continue phosphate binders. 5. Hypokalemia. Continue to monitor and replete as needed. 6. Seizure disorder. Continue medical management. 7. History of cerebrovascular accident. Continue current treatment plan. 8. Chronic encephalopathy. Continue to monitor. 9. Hypertension. Continue current blood pressure regimen. Continue ultrafiltration with dialysis. 10. Neuropathy. Continue current treatment plan. 11. Pneumonia. The patient is completing antibiotic course. Dictated By: ZAHIRA SIMMS DO NR/NTS Conf#: [id number] DID#: [id number] CC: MIGUEL OWENS MD; ZAHIRA SIMMS DO; RADHA PARSON MD;*EndCC*
[2018-10-18] MEDS: ONDANSETRON 4 MG INJ IV PRN (13:32)
--- NOTE | 2018-10-18 14:08 | PN ---
Date/Time of Note Date/Time of Note DATE: 10/18/18 TIME: 14:06 Objective Vitals Vital Signs Date Temp Pulse Resp B/P (MAP) Pulse Ox O2 O2 Flow FiO2 Time Delivery Rate 10/18/18 72 16 96 21 08:06 10/18/18 98.9 116/68 07:58 (84) 10/17/18 Room Air 18:16 Intake and Output 10/17/18 10/17/18 10/18/18 1515:00 23:00 07:00 IntakeIntake Total 100 ml 150 ml OutputOutput Total 2000 ml BalanceBalance -1900 ml 150 ml Results Result Diagram: 10/18/18 0653 10/18/18 0653 Medications Medications Current Medications IV Flush (NS 3 ml) 3 ml PER PROTOCOL IV ; Start 10/08/18 at 23:00 Acetaminophen (Tylenol Tab) 650 mg Q6H PRN PO .PAIN 1-3 OR TEMP; Start 10/08/18 at 23:00 Albuterol/ Ipratropium (Duoneb) 3 ml Q2H RESP THERAPY PRN HHN SHORTNESS OF BREATH; Start 10/08/18 at 23:00 Cefepime HCl 50 ml @ 100 mls/hr Q24H IVPB Last administered on 10/18/18at 00:43; Admin Dose 100 MLS/HR; Start 10/09/18 at 00:30 Lorazepam (Ativan) 1 mg Q2H PRN IV seizure; Start 10/09/18 at 18:30 Ondansetron HCl (Zofran Inj) 4 mg Q4H PRN IV NAUSEA/VOMITING Last administered on 10/18/18at 13:32; Admin Dose 4 MG; Start 10/09/18 at 18:30 Albuterol (Proventil 0.083% (Neb)) 1.25 mg Q2H RESP THERAPY PRN HHN WHEEZING AND RESP DISTRESS Last administered on 10/13/18at 20:26; Admin Dose 1.25 MG; Start 10/09/18 at 18:30 Albuterol (Proventil 0.083% (Neb)) 1.25 mg Q6H RESP THERAPY HHN Last administered on 10/18/18at 08:06; Admin Dose 1.25 MG; Start 10/09/18 at 20:00 Aspirin (Halfprin) 81 mg DAILY PO Last administered on 10/18/18 08:57; Admin Dose 81 MG; Start 10/10/18 at 09:00 Diagnostic Test (Pha) (Accu-Chek) 1 ea 02 XX ; Start 10/10/18 at 02:00 Insulin Aspart (Novolog Insulin Pen) NOVOLOG *MILD* ALGORITHM WITH MEALS BEDTIME SC Last administered on 10/18/18 12:49; Admin Dose 1 UNIT; Start 10/09/18 at 21:00 Epoetin Isidro-epbx (RETACRIT(esrd)) 10,000 unit MoWeFr@1700 SC Last administered on 10/13/18 17:29; Admin Dose 10,000 UNIT; Start 10/11/18 at 17:00; Status Hold Sevelamer Carbonate (Renvela) 1,600 mg WITH MEALS PO Last administered on 10/18/18 12:54; Admin Dose 1,600 MG; Start 10/10/18 at 18:00 Cholecalciferol (Vitamin D) 1,000 unit DAILY PO Last administered on 10/18/18 08:58; Admin Dose 1,000 UNIT; Start 10/11/18 at 09:00 Multivit/Ca Carb/ B Cmplx/FA/Prenat (Giselle-Cristin) 1 tab DAILY PO Last administered on 10/18/18 08:58; Admin Dose 1 TAB; Start 10/11/18 at 09:00 Heparin Sodium (Porcine) (Heparin (5000 Units/1ml)) 5,000 unit Q8 SC Last administered on 10/18/18 13:22; Admin Dose 5,000 UNIT; Start 10/11/18 at 22:00 Hydralazine HCl (Apresoline) 10 mg Q4H PRN IV ELEVATED BLOOD PRESSURE Last administered on 10/17/18 02:49; Admin Dose 10 MG; Start 10/11/18 at 23:30 Heparin Sodium (Porcine) (Heparin (1000 Units/ml)) 3,200 unit AFTER DIALYSIS CATHETER Last administered on 10/17/18 17:08; Admin Dose 3,200 UNIT; Start 10/13/18 at 10:30 Famotidine (Pepcid) 20 mg DAILY PO Last administered on 10/18/18 08:57; Admin Dose 20 MG; Start 10/16/18 at 09:00 Valproate Sodium (Depakene Liquid Cup) 750 mg TID PO Last administered on 10/18/18at 12:54; Admin Dose 750 MG; Start 10/15/18 at 23:30 Erythromycin (Erythromycin Oph Oint) 1 applic QID BOTH EYES Last administered on 10/18/18at 12:55; Admin Dose 1 APPLIC; Start 10/16/18 at 17:00 Miscellaneous Information 1 ea NOTE XX ; Start 10/16/18 at 16:30 Glucose (Glutose) 15 gm Q15M PRN PO DECREASED GLUCOSE; Start 10/16/18 at 16:30 Glucose (Glutose) 22.5 gm Q15M PRN PO DECREASED GLUCOSE; Start 10/16/18 at 16:30 Dextrose (D50w Syringe) 25 ml Q15M PRN IV DECREASED GLUCOSE; Start 10/16/18 at 16:30 Dextrose (D50w Syringe) 50 ml Q15M PRN IV DECREASED GLUCOSE; Start 10/16/18 at 16:30 Glucagon (Glucagen) 1 mg Q15M PRN IM DECREASED GLUCOSE; Start 10/16/18 at 16:30 Glucose (Glutose) 15 gm Q15M PRN BUCCAL DECREASED GLUCOSE; Start 10/16/18 at 16:30 Metronidazole 100 ml @ 100 mls/hr Q8 IVPB Last administered on 10/18/18at 13:21; Admin Dose 100 MLS/HR; Start 10/17/18 at 17:30 VTE Prophylaxis Risk score (from Nsg)>0 risk: 7 SCD applied (from Ns): Yes Lines/Catheters IV Catheter Type: Dong in Place: No Assessment/Plan Hospital Course Subjective Patient unchanged from yesterday, follows command however does not have conversations Objective physical exam General: Patient is laying in bed does not answer questions but is widely alert Mentation: Patient is alert and not fully oriented Head: Normocephalic atraumatic Eyes: EOMI, pupils reactive to light Neck: Supple, nontender, midline Respiratory: Clear to auscultation bilaterally Cardiovascular: regular rate, no obvious murmurs Gastrointestinal: non-tender to palpation, bowel sounds heard. Neurological: Moves all extremities spontaneously Skin: No new skin lesions ASSESSMENT & PLAN . 58-year-old male with comorbidities including seizure disorder, end-stage renal disease on hemodialysis, hypertension, chronic encephalopathy, and diabetes mellitus, who was brought to the emergency room after breakthrough seizures, who was admitted to inpatient setting for further treatment and evaluation. Acute encephalopathy -Likely set off by Keppra as patient has a history of doing very poorly on Keppra with major side effects per , similar episode in the past -We will need to speak with neurology as patient's baseline is questionable, neurology states that patient's current state was the state that he came in, will need to speak with again regarding true baseline -Patient was previously on Dilantin, now on valproic acid -Neurology recommendations appreciated 1. Seizure disorder. Persistent -Status post evaluation by neurology. -Continue anticonvulsants. 2. Hypertensive urgency. Resolved -Continue antihypertensives. -Adjust antihypertensives to obtain optimal blood pressure control. 3. Diabetes mellitus. -Hemoglobin A1c 6.6. -Continue sliding scale insulin. 4. End-stage renal disease on hemodialysis -Hemodialysis as per nephrology. 5. Suspected aspiration pneumonia. -Continue antimicrobials including coverage for anaerobes. 6. Normocytic, normochromic anemia. -Probably anemia of chronic kidney disease -Continue Epogen. 7. History of multiple strokes. -Continue aspirin. 8. Dyslipidemia. -Continue statins. 9. Fluids, electrolytes, and nutrition. -Renal, carbohydrate controlled diet. 10. DVT prophylaxis -Subcutaneous heparin. 11. Plan. -Continue to reevaluate patient's mental status, will need to discuss with neurology and patient's . MIGUEL OWENS October 18, 2018 14:08
[2018-10-18 14:12] VITALS: BP 86/53; PULSE 69; RESP 14
[2018-10-18 14:21] VITALS: BP 98/55; PULSE 66
--- NOTE | 2018-10-18 16:15 | CONS ---
Assessment/Plan Assessment/Plan Hospital Course 58 yo M with reported hx of CVA, epilepsy, and other comorbidities who presents for evaluation of a breakthrough seizure. That patient's reports that he is prescribed Dilantin; however, serum level on admission was undetectable.. The clinical picture is most consistent with breakthrough seizure in the context of medication noncompliance. Meningoencephalitis is unlikely. MRI brain is notable for multiple chronic BL hemispheric infarcts, but is otherwise without acute intracranial pathology. P: Continue maintenance depakote 750mg TID for now; titrate prn to goal level 50- 100 Agree with discontinuation of Keppra Ativan IV PRN seizures > 5 min or for cluster Cont medical management per primary Will follow clinically, to recommend neurologic studies, as necessary Consultation Date/Type/Reason Admit Date/Time Oct 08, 2018 at 18:36 Type of Consult Neurology Reason for Consultation seizure Requesting Provider: COLUMBA LE MD Date/Time of Note DATE: 10/18/18 TIME: 16:15 24 HR Interval Summary Free Text/Dictation Continues acute care. Exam Vital Signs Vitals Vital Signs Date Temp Pulse Resp B/P (MAP) Pulse Ox O2 O2 Flow FiO2 Time Delivery Rate 10/18/18 68 18 97 21 14:54 10/18/18 98/55 (69) 14:21 10/18/18 98.9 14:12 10/17/18 Room Air 18:16 Intake and Output 10/17/18 10/17/18 10/18/18 1515:00 23:00 07:00 IntakeIntake Total 100 ml 150 ml OutputOutput Total 2000 ml BalanceBalance -1900 ml 150 ml Exam PE: Gen Appearance: Anxious HEENT: Normocephalic Cardiovascular: Regular rate Abdomen: Soft Extremities: Dry NE: The patient was awake and alert, though nonverbal. Able to follow simple axial and appendicular commands. Cranial nerve examination was limited by mental status. Pupils were equal and reactive to light. There was no afferent pupillary defect. Funduscopic examination was limited. Face was grossly symmetric, w/ present corneal and cough reflexes. Tone was normal. Muscle bulk was normal. I did not see fasciculations. The patient was spontaneously moving his extremities. Coordination and gait testing was limited by mental status. Arm and leg reflexes were within normal limits and symmetric. Saenz's sign was absent. Plantar responses were flexor. EMERALD,JEAN[employer]PAUL [employer] October 18, 2018 16:15
[2018-10-18 19:53] VITALS: BP 93/55; PULSE 71; RESP 17
[2018-10-19] VITALS (18 sets, daily range): BP systolic 81–128; BP diastolic 52–73; PULSE 57–79; RESP 14–20
[2018-10-19] MEDS: CEFEPIME 1GM/50 ML (PMX) 50 ML IVPB SCH (01:02)
[2018-10-19] MEDS: ALBUTEROL 0.083% (NEB) 2.5 MG/3 ML AMP HHN SCH ×4 (01:47→19:57)
[2018-10-19] MEDS: ACCU-CHEK XX SCH (02:00)
[2018-10-19] MEDS: metroNIDAZOLE 500 MG/NS (PMX) 100 ML IVPB SCH (05:35)
[2018-10-19] MEDS: HEPARIN 5,000 UNIT/1 ML VIAL SC SCH ×3 (05:41→22:08)
[2018-10-19] MEDS: INSULIN ASPART [NOVOLOG] 3 ML PEN SC SCH ×4 (07:59→21:00)
[2018-10-19] MEDS: ASPIRIN (EC) 81 MG TAB PO SCH (08:47)
[2018-10-19] MEDS: MULTIVIT/CA CARB/B CMPLX/FA TAB PO SCH (08:47)
[2018-10-19] MEDS: CHOLECALCIFEROL 1,000 UNIT TAB PO SCH (08:47)
[2018-10-19] MEDS: VALPROIC ACID LIQUID CUP 250 MG/5 ML CUP PO SCH ×3 (08:47→21:57)
[2018-10-19] MEDS: FAMOTIDINE 20 MG TAB PO SCH (08:47)
[2018-10-19] MEDS: ERYTHROMYCIN 1 GM OPH OINT BOTH EYES SCH ×4 (08:48→21:58)
--- NOTE | 2018-10-19 08:56 | PN ---
DATE: 10/19/2018 SUBJECTIVE: The patient is stable. No events overnight. OBJECTIVE: VITAL SIGNS: Blood pressure is 118/67, pulse 69, respirations 16, temperature 99.0. HEENT: Head is normocephalic. NECK: Supple. HEART: Regular rate. LUNGS: Show diminished breath sounds at the base. ABDOMEN: Soft, nontender to palpation without rebound or guarding. EXTREMITIES: Negative for clubbing, cyanosis, no edema. DERMATOLOGIC: No rashes. MUSCULOSKELETAL: No joint effusion. NEUROLOGIC: No change in exam. MEDICATIONS: Reviewed. LABORATORY DATA: Reviewed. ASSESSMENT AND PLAN: 1. End-stage renal disease. The patient is scheduled for dialysis today. We will dialyze for 3 geremias rs 3k bath, calcium 2.5. 2. Anemia. Continue to monitor hemoglobin and hematocrit levels. Continue Epogen. 3. Mineral bone disorder. Continue to monitor calcium and phosphorus levels. We will continue phos phate binders, adjust as needed. 4. Hyperkalemia, resolved. 5. Seizure disorder. Continue medical management. 6. History of cerebrovascular accident. Continue current medical management. 7. Chronic encephalopathy. Continue to monitor. 8. Hypertension. Continue current blood pressure regimen. Continue ultrafiltration with dialysis. 9. Neuropathy. Continue current treatment plan. 10. Pneumonia. The patient is completing antibiotic course. Dictated By: ZAHIRA SIMMS DO NR/NTS Conf#: [id number] DID#: [id number] CC: ZAHIRA SIMMS DO; RADHA PARSON MD; MIGUEL OWENS MD;*EndCC*
[2018-10-19] MEDS: SEVELAMER CARBONATE 800 MG TABLET PO SCH ×2 (12:00→17:44)
[2018-10-19] MEDS: HEPARIN 1000 UNITS/ML 10 ML INJ CATHETER SCH (13:05)
--- NOTE | 2018-10-19 13:58 | PN ---
Date/Time of Note Date/Time of Note DATE: 10/19/18 TIME: 13:53 Objective Vitals Vital Signs Date Temp Pulse Resp B/P (MAP) Pulse Ox O2 O2 Flow FiO2 Time Delivery Rate 10/19/18 67 20 117/69 98 Room Air 13:13 (85) 10/19/18 99.0 07:54 10/19/18 21 01:47 Intake and Output 10/18/18 10/18/18 10/19/18 1515:00 23:00 07:00 IntakeIntake Total 660 ml 460 ml 50 ml BalanceBalance 660 ml 460 ml 50 ml Results Result Diagram: 10/19/18 0510 10/19/18 0510 Medications Medications Current Medications IV Flush (NS 3 ml) 3 ml PER PROTOCOL IV ; Start 10/08/18 at 23:00 Acetaminophen (Tylenol Tab) 650 mg Q6H PRN PO .PAIN 1-3 OR TEMP; Start 10/08/18 at 23:00 Albuterol/ Ipratropium (Duoneb) 3 ml Q2H RESP THERAPY PRN HHN SHORTNESS OF BREATH; Start 10/08/18 at 23:00 Lorazepam (Ativan) 1 mg Q2H PRN IV seizure; Start 10/09/18 at 18:30 Ondansetron HCl (Zofran Inj) 4 mg Q4H PRN IV NAUSEA/VOMITING Last administered on 10/18/18at 13:32; Admin Dose 4 MG; Start 10/09/18 at 18:30 Albuterol (Proventil 0.083% (Neb)) 1.25 mg Q2H RESP THERAPY PRN HHN WHEEZING AND RESP DISTRESS Last administered on 10/13/18at 20:26; Admin Dose 1.25 MG; Start 10/09/18 at 18:30 Albuterol (Proventil 0.083% (Neb)) 1.25 mg Q6H RESP THERAPY HHN Last administered on 10/19/18at 01:47; Admin Dose 1.25 MG; Start 10/09/18 at 20:00 Aspirin (Halfprin) 81 mg DAILY PO Last administered on 10/19/18 08:47; Admin Dose 81 MG; Start 10/10/18 at 09:00 Diagnostic Test (Pha) (Accu-Chek) 1 ea 02 XX ; Start 10/10/18 at 02:00 Insulin Aspart (Novolog Insulin Pen) NOVOLOG *MILD* ALGORITHM WITH MEALS BEDTIME SC Last administered on 10/18/18 21:47; Admin Dose 1 UNIT; Start 10/09/18 at 21:00 Epoetin Isidro-epbx (RETACRIT(esrd)) 10,000 unit MoWeFr@1700 SC Last administered on 10/13/18 17:29; Admin Dose 10,000 UNIT; Start 10/11/18 at 17:00; Status Hold Cholecalciferol (Vitamin D) 1,000 unit DAILY PO Last administered on 10/19/18 08:47; Admin Dose 1,000 UNIT; Start 10/11/18 at 09:00 Multivit/Ca Carb/ B Cmplx/FA/Prenat (Giselle-Cristin) 1 tab DAILY PO Last administered on 10/19/18 08:47; Admin Dose 1 TAB; Start 10/11/18 at 09:00 Heparin Sodium (Porcine) (Heparin (5000 Units/1ml)) 5,000 unit Q8 SC Last administered on 10/19/18 13:46; Admin Dose 5,000 UNIT; Start 10/11/18 at 22:00 Hydralazine HCl (Apresoline) 10 mg Q4H PRN IV ELEVATED BLOOD PRESSURE Last administered on 10/17/18 02:49; Admin Dose 10 MG; Start 10/11/18 at 23:30 Heparin Sodium (Porcine) (Heparin (1000 Units/ml)) 3,200 unit AFTER DIALYSIS CATHETER Last administered on 10/19/18 13:05; Admin Dose 3,200 UNIT; Start 10/13/18 at 10:30 Famotidine (Pepcid) 20 mg DAILY PO Last administered on 10/19/18 08:47; Admin Dose 20 MG; Start 10/16/18 at 09:00 Valproate Sodium (Depakene Liquid Cup) 750 mg TID PO Last administered on 10/19/18 13:44; Admin Dose 750 MG; Start 10/15/18 at 23:30 Erythromycin (Erythromycin Oph Oint) 1 applic QID BOTH EYES Last administered on 10/19/18 13:45; Admin Dose 1 APPLIC; Start 10/16/18 at 17:00 Miscellaneous Information 1 ea NOTE XX ; Start 10/16/18 at 16:30 Glucose (Glutose) 15 gm Q15M PRN PO DECREASED GLUCOSE; Start 10/16/18 at 16:30 Glucose (Glutose) 22.5 gm Q15M PRN PO DECREASED GLUCOSE; Start 10/16/18 at 16:30 Dextrose (D50w Syringe) 25 ml Q15M PRN IV DECREASED GLUCOSE; Start 10/16/18 at 16:30 Dextrose (D50w Syringe) 50 ml Q15M PRN IV DECREASED GLUCOSE; Start 10/16/18 at 16:30 Glucagon (Glucagen) 1 mg Q15M PRN IM DECREASED GLUCOSE; Start 10/16/18 at 16:30 Glucose (Glutose) 15 gm Q15M PRN BUCCAL DECREASED GLUCOSE; Start 10/16/18 at 16:30 Sevelamer Carbonate (Renvela) 2,400 mg WITH MEALS PO ; Start 10/19/18 at 12:00 VTE Prophylaxis Risk score (from Ns)>0 risk: 3 [place] [facility] [place] Lines/Catheters IV Catheter Type: Dong in Place: No Assessment/Plan Hospital Course Subjective Patient improved from yesterday, now answering questions in short words. Objective physical exam General: Patient is laying in bed, answers some questions with short words, alert Mentation: Patient is alert and somewhat oriented Head: Normocephalic atraumatic Eyes: EOMI, pupils reactive to light Neck: Supple, nontender, midline Respiratory: Clear to auscultation bilaterally Cardiovascular: regular rate, no obvious murmurs Gastrointestinal: non-tender to palpation, bowel sounds heard. Neurological: Moves all extremities spontaneously Skin: No new skin lesions ASSESSMENT & PLAN . 58-year-old male with comorbidities including seizure disorder, end-stage renal disease on hemodialysis, hypertension, chronic encephalopathy, and diabetes mellitus, who was brought to the emergency room after breakthrough seizures, who was admitted to inpatient setting for further treatment and evaluation. Acute encephalopathy -Likely set off by Keppra as patient has a history of doing very poorly on Keppra with major side effects per , similar episode in the past -We will need to speak with neurology as patient's baseline is questionable, neurology states that patient's current state was the state that he came in, will need to speak with again regarding true baseline -Patient was previously on Dilantin, now on valproic acid -Neurology recommendations appreciated 1. Seizure disorder. Persistent -Status post evaluation by neurology. -Continue anticonvulsants. 2. Hypertensive urgency. Resolved -Continue antihypertensives. -Adjust antihypertensives to obtain optimal blood pressure control. 3. Diabetes mellitus. -Hemoglobin A1c 6.6. -Continue sliding scale insulin. 4. End-stage renal disease on hemodialysis -Hemodialysis as per nephrology. 5. Suspected aspiration pneumonia. -Continue antimicrobials including coverage for anaerobes. 6. Normocytic, normochromic anemia. -Probably anemia of chronic kidney disease -Continue Epogen. 7. History of multiple strokes. -Continue aspirin. 8. Dyslipidemia. -Continue statins. 9. Fluids, electrolytes, and nutrition. -Renal, carbohydrate controlled diet. 10. DVT prophylaxis -Subcutaneous heparin. 11. Plan. -Patient doing well, if patient continues improvement, DC tomorrow. MIGUEL OWENS October 19, 2018 13:58
--- NOTE | 2018-10-19 14:27 | CONS ---
Assessment/Plan Assessment/Plan Hospital Course 58 yo M with reported hx of CVA, epilepsy, and other comorbidities who presents for evaluation of a breakthrough seizure. That patient's reports that he is prescribed Dilantin; however, serum level on admission was undetectable.. The clinical picture is most consistent with breakthrough seizure in the context of medication noncompliance. Meningoencephalitis is unlikely. MRI brain is notable for multiple chronic BL hemispheric infarcts, but is otherwise without acute intracranial pathology. P: Continue maintenance depakote 750mg TID for now; titrate prn to goal level 50- 100 Agree with discontinuation of Keppra Ativan IV PRN seizures > 5 min or for cluster Cont medical management per primary Will follow clinically, to recommend neurologic studies, as necessary Consultation Date/Type/Reason Admit Date/Time Oct 08, 2018 at 18:36 Type of Consult Neurology Reason for Consultation seizure Requesting Provider: COLUMBA LE MD Date/Time of Note DATE: 10/19/18 TIME: 14:27 24 HR Interval Summary Free Text/Dictation Continues acute care. Awaiting discharge tomorrow. Exam Vital Signs Vitals Vital Signs Date Temp Pulse Resp B/P (MAP) Pulse Ox O2 O2 Flow FiO2 Time Delivery Rate 10/19/18 80 18 96 21 14:18 10/19/18 117/69 Room Air 13:13 (85) 10/19/18 99.0 07:54 Intake and Output 10/18/18 10/18/18 10/19/18 1515:00 23:00 07:00 IntakeIntake Total 660 ml 460 ml 50 ml BalanceBalance 660 ml 460 ml 50 ml Exam PE: Gen Appearance: NAD HEENT: Normocephalic Cardiovascular: Regular rate Abdomen: Soft Extremities: Dry NE: The patient was awake and alert, though nonverbal. Able to follow simple axial and appendicular commands. Cranial nerve examination was limited by mental status. Pupils were equal and reactive to light. There was no afferent pupillary defect. Funduscopic examination was limited. Face was grossly symmetric, w/ present corneal and cough reflexes. Tone was normal. Muscle bulk was normal. I did not see fasciculations. The patient was spontaneously moving his extremities. Coordination and gait testing was limited by mental status. Arm and leg reflexes were within normal limits and symmetric. Saenz's sign was absent. Plantar responses were flexor. JEAN-PAUL CORBIN NP October 19, 2018 14:27
[2018-10-20] MEDS: ACCU-CHEK XX SCH (01:02)
[2018-10-20 01:23] VITALS: BP 124/63; PULSE 72; RESP 18
[2018-10-20] MEDS: ALBUTEROL 0.083% (NEB) 2.5 MG/3 ML AMP HHN SCH ×2 (01:49→09:19)
[2018-10-20] MEDS: HEPARIN 5,000 UNIT/1 ML VIAL SC SCH ×3 (05:46→21:21)
[2018-10-20] MEDS: INSULIN ASPART [NOVOLOG] 3 ML PEN SC SCH ×4 (08:00→21:00)
[2018-10-20 08:02] VITALS: BP 149/76; PULSE 70; RESP 18
--- NOTE | 2018-10-20 08:30 | PN ---
DATE: 10/20/2018 SUBJECTIVE: The patient remains stable. No events overnight. No fevers, chills, nausea, or vomitin g. OBJECTIVE: VITAL SIGNS: Blood pressure is 149/76, respirations 18, pulse 70, temperature 98.1. HEENT: Head is normocephalic. NECK: Supple. HEART: Regular rate. LUNGS: Show diminished breath sounds at the base. ABDOMEN: Soft, nontender to palpation without rebound or guarding. EXTREMITIES: Negative for clubbing, cyanosis. Trace edema. DERMATOLOGIC: No rashes. MUSCULOSKELETAL: No joint effusion. NEUROLOGIC: No change in exam. MEDICATIONS: Reviewed. LABORATORY DATA: Reviewed. ASSESSMENT AND PLAN: 1. End-stage renal disease. The patient had hemodialysis yesterday, tolerated well. Plan is for di alysis again tomorrow. 2. Anemia. Continue to monitor hemoglobin and hematocrit levels. We will continue Epogen as needed . 3. Mineral bone disorder, monitor calcium and phosphorus levels. Continue phosphate binders. 4. Hyperkalemia, resolved. 5. Seizure disorder. Continue medical management. 6. History of cerebrovascular. Continue medical management. 7. Chronic encephalopathy. Continue to monitor. 8. Hypertension. Continue current blood pressure regimen. Continue ultrafiltration with dialysis. Adjust medications as needed. 9. Neuropathy. Continue to monitor. Continue medical management. 10. Pneumonia. The patient is completing antibiotic course. Dictated By: ZAHIRA SIMMS DO NR/NTS Conf#: [id number] DID#: [id number] CC: RADHA PARSON MD; MIGUEL OWENS MD; ZAHIRA SIMMS DO;*EndCC*
[2018-10-20] MEDS ORDERED: ASPIRIN 81 MG TAB PO SCH (09:00)
[2018-10-20] MEDS: FAMOTIDINE 20 MG TAB PO SCH (09:10)
[2018-10-20] MEDS: SEVELAMER CARBONATE 2.4 GM PKT PO SCH ×3 (09:10→17:25)
[2018-10-20] MEDS: CHOLECALCIFEROL 1,000 UNIT TAB PO SCH (09:10)
[2018-10-20] MEDS: MULTIVIT/CA CARB/B CMPLX/FA TAB PO SCH (09:10)
[2018-10-20] MEDS: VALPROIC ACID LIQUID CUP 250 MG/5 ML CUP PO SCH ×3 (09:11→21:18)
[2018-10-20] MEDS: ERYTHROMYCIN 1 GM OPH OINT BOTH EYES SCH ×4 (09:40→21:36)
[2018-10-20] MEDS ORDERED: AZIT2.5D4 OPHTHALMIC (12:28)
[2018-10-20] MEDS ORDERED: ASPI-831 PO (12:28)
[2018-10-20] MEDS ORDERED: VALP250C3 PO (12:28)
[2018-10-20] MEDS ORDERED: CHOL100062 PO (12:31)
[2018-10-20] MEDS ORDERED: SEVE800T7 PO (12:31)
[2018-10-20] MEDS ORDERED: SITA25TA3 PO (12:31)
--- NOTE | 2018-10-20 14:00 | PN ---
Date/Time of Note Date/Time of Note DATE: 10/20/18 TIME: 13:58 Objective Vitals Vital Signs Date Temp Pulse Resp B/P (MAP) Pulse Ox O2 O2 Flow FiO2 Time Delivery Rate 10/20/18 76 18 98 21 09:30 10/20/18 98.1 149/76 Room Air 08:02 (100) Intake and Output 10/19/18 10/19/18 10/20/18 1414:59 22:59 06:59 IntakeIntake Total 580 ml 320 ml OutputOutput Total 2000 ml 300 ml BalanceBalance -1420 ml 320 ml -300 ml Results Result Diagram: 10/20/18 0429 10/20/18 0429 Medications Medications Current Medications IV Flush (NS 3 ml) 3 ml PER PROTOCOL IV ; Start 10/08/18 at 23:00 Acetaminophen (Tylenol Tab) 650 mg Q6H PRN PO .PAIN 1-3 OR TEMP; Start 10/08/18 at 23:00 Albuterol/ Ipratropium (Duoneb) 3 ml Q2H RESP THERAPY PRN HHN SHORTNESS OF BREATH; Start 10/08/18 at 23:00 Lorazepam (Ativan) 1 mg Q2H PRN IV seizure; Start 10/09/18 at 18:30 Ondansetron HCl (Zofran Inj) 4 mg Q4H PRN IV NAUSEA/VOMITING Last administered on 10/18/18at 13:32; Admin Dose 4 MG; Start 10/09/18 at 18:30 Albuterol (Proventil 0.083% (Neb)) 1.25 mg Q2H RESP THERAPY PRN HHN WHEEZING AND RESP DISTRESS Last administered on 10/13/18at 20:26; Admin Dose 1.25 MG; Start 10/09/18 at 18:30 Diagnostic Test (Pha) (Accu-Chek) 1 ea 02 XX ; Start 10/10/18 at 02:00 Insulin Aspart (Novolog Insulin Pen) NOVOLOG *MILD* ALGORITHM WITH MEALS BEDTIME SC Last administered on 10/20/18at 13:24; Admin Dose 1 UNIT; Start 10/09/18 at 21:00 Epoetin Isidro-epbx (RETACRIT(esrd)) 10,000 unit MoWeFr@1700 SC Last administered on 10/13/18at 17:29; Admin Dose 10,000 UNIT; Start 10/11/18 at 17:00; Status Hold Cholecalciferol (Vitamin D) 1,000 unit DAILY PO Last administered on 10/20/18 09:10; Admin Dose 1,000 UNIT; Start 10/11/18 at 09:00 Multivit/Ca Carb/ B Cmplx/FA/Prenat (Giselle-Cristin) 1 tab DAILY PO Last administered on 10/20/18 09:10; Admin Dose 1 TAB; Start 10/11/18 at 09:00 Heparin Sodium (Porcine) (Heparin (5000 Units/1ml)) 5,000 unit Q8 SC Last adm inistered on 10/20/18 13:34; Admin Dose 5,000 UNIT; Start 10/11/18 at 22:00 Hydralazine HCl (Apresoline) 10 mg Q4H PRN IV ELEVATED BLOOD PRESSURE Last administered on 10/17/18 02:49; Admin Dose 10 MG; Start 10/11/18 at 23:30 Heparin Sodium (Porcine) (Heparin (1000 Units/ml)) 3,200 unit AFTER DIALYSIS CATHETER Last administered on 10/19/18 13:05; Admin Dose 3,200 UNIT; Start 10/13/18 at 10:30 Famotidine (Pepcid) 20 mg DAILY PO Last administered on 10/20/18 09:10; Admin Dose 20 MG; Start 10/16/18 at 09:00 Valproate Sodium (Depakene Liquid Cup) 750 mg TID PO Last administered on 10/20/18 13:08; Admin Dose 750 MG; Start 10/15/18 at 23:30 Erythromycin (Erythromycin Oph Oint) 1 applic QID BOTH EYES Last administered on 10/20/18 13:20; Admin Dose 1 APPLIC; Start 10/16/18 at 17:00 Miscellaneous Information 1 ea NOTE XX ; Start 10/16/18 at 16:30 Glucose (Glutose) 15 gm Q15M PRN PO DECREASED GLUCOSE; Start 10/16/18 at 16:30 Glucose (Glutose) 22.5 gm Q15M PRN PO DECREASED GLUCOSE; Start 10/16/18 at 16:30 Dextrose (D50w Syringe) 25 ml Q15M PRN IV DECREASED GLUCOSE; Start 10/16/18 at 16:30 Dextrose (D50w Syringe) 50 ml Q15M PRN IV DECREASED GLUCOSE; Start 10/16/18 at 16:30 Glucagon (Glucagen) 1 mg Q15M PRN IM DECREASED GLUCOSE; Start 10/16/18 at 16:30 Glucose (Glutose) 15 gm Q15M PRN BUCCAL DECREASED GLUCOSE; Start 10/16/18 at 16:30 Aspirin (Aspirin) 81 mg DAILY PO Last administered on 10/20/18at 09:10; Admin Dose 81 MG; Start 10/20/18 at 09:00 Sevelamer Carbonate (Renvela) 2.4 gm WITH MEALS PO Last administered on 10/20/18at 13:08; Admin Dose 2.4 GM; Start 10/20/18 at 08:07 VTE Prophylaxis Risk score (from Ns)>0 risk: 3 SCD applied (from Ns): Yes Pharmacological prophylaxis: other Lines/Catheters IV Catheter Type: Dong in Place: No Assessment/Plan Hospital Course Subjective Patient has no acute changes overnight, sleeping well, easily aroused Objective physical exam General: Patient is laying in bed, answers some questions with short words, alert Mentation: Patient is alert and somewhat oriented Head: Normocephalic atraumatic Eyes: EOMI, pupils reactive to light Neck: Supple, nontender, midline Respiratory: Clear to auscultation bilaterally Cardiovascular: regular rate, no obvious murmurs Gastrointestinal: non-tender to palpation, bowel sounds heard. Neurological: Moves all extremities spontaneously Skin: No new skin lesions ASSESSMENT & PLAN . 58-year-old male with comorbidities including seizure disorder, end-stage renal disease on hemodialysis, hypertension, chronic encephalopathy, and diabetes mellitus, who was brought to the emergency room after breakthrough seizures, who was admitted to inpatient setting for further treatment and evaluation. Acute encephalopathy -Likely set off by Keppra as patient has a history of doing very poorly on Keppra with major side effects per , similar episode in the past -Patient is back to near baseline as far as cognition goes however is not ambulating, some may be mechanical however it seems there is a portion that is mental with the patient. -Patient was previously on Dilantin, now on valproic acid -Neurology recommendations appreciated 1. Seizure disorder. Persistent -Status post evaluation by neurology. -Continue anticonvulsants. 2. Hypertensive urgency. Resolved -Off antihypertensives for now. -Adjust antihypertensives to obtain optimal blood pressure control. -Patient was on hydralazine 50 twice daily and amlodipine 5 twice daily at home, will re-add these as needed 3. Diabetes mellitus. -Hemoglobin A1c 6.6. -Continue sliding scale insulin. Patient on Levemir at home 4. End-stage renal disease on hemodialysis -Hemodialysis as per nephrology. 5. Suspected aspiration pneumonia. -Continue antimicrobials including coverage for anaerobes. 6. Normocytic, normochromic anemia. -Probably anemia of chronic kidney disease -Continue Epogen. 7. History of multiple strokes. -Stop baby aspirin, patient was on Plavix at home, restart Plavix 8. Dyslipidemia. -Continue statins. 9. Fluids, electrolytes, and nutrition. -Renal, carbohydrate controlled diet. 10. DVT prophylaxis -Subcutaneous heparin. 11. Plan. -Patient ready for discharge, case management to help with discharge home versus retirement facility. MIGUEL OWENS October 20, 2018 14:00
[2018-10-20 14:33] VITALS: BP 126/72; PULSE 60; RESP 17
--- NOTE | 2018-10-20 15:57 | CONS ---
Assessment/Plan Assessment/Plan Hospital Course 58 yo M with reported hx of CVA, epilepsy, and other comorbidities who presents for evaluation of a breakthrough seizure. That patient's reports that he is prescribed Dilantin; however, serum level on admission was undetectable.. The clinical picture is most consistent with breakthrough seizure in the context of medication noncompliance. Meningoencephalitis is unlikely. MRI brain is notable for multiple chronic BL hemispheric infarcts, but is otherwise without acute intracranial pathology. P: Continue maintenance depakote 750mg TID for now; titrate prn to goal level 50- 100 Agree with discontinuation of Keppra Ativan IV PRN seizures > 5 min or for cluster Cont medical management per primary Will follow clinically Consultation Date/Type/Reason Admit Date/Time Oct 08, 2018 at 18:36 Type of Consult Neurology Reason for Consultation seizure Requesting Provider: COLUMBA LE MD Date/Time of Note DATE: 10/20/18 TIME: 15:57 24 HR Interval Summary Free Text/Dictation Continues acute care. No changes in pt condition reported. Exam Vital Signs Vitals Vital Signs Date Temp Pulse Resp B/P (MAP) Pulse Ox O2 O2 Flow FiO2 Time Delivery Rate 10/20/18 74 18 98 21 14:48 10/20/18 98.2 126/72 Room Air 14:33 (90) Intake and Output 10/19/18 10/19/18 10/20/18 1414:59 22:59 06:59 IntakeIntake Total 580 ml 320 ml OutputOutput Total 2000 ml 300 ml BalanceBalance -1420 ml 320 ml -300 ml Exam PE: Gen Appearance: NAD HEENT: Normocephalic Cardiovascular: Regular rate Abdomen: Soft Extremities: Dry NE: The patient was awake and alert, though nonverbal. Able to follow simple axial and appendicular commands. Cranial nerve examination was limited by mental status. Pupils were equal and reactive to light. There was no afferent pupillary defect. Funduscopic examination was limited. Face was grossly symmetric, w/ present corneal and cough reflexes. Tone was normal. Muscle bulk was normal. I did not see fasciculations. The patient was spontaneously moving his extremities. Coordination and gait testing was limited by mental status. Arm and leg reflexes were within normal limits and symmetric. Saenz's sign was absent. Plantar responses were flexor. JEAN-PAUL CORBIN ADON October 20, 2018 15:57
[2018-10-20 19:47] VITALS: BP 119/65; PULSE 66; RESP 16
[2018-10-21] VITALS (18 sets, daily range): BP systolic 92–128; BP diastolic 56–78; PULSE 64–83; RESP 16–18
[2018-10-21] MEDS: ACCU-CHEK XX SCH (02:00)
[2018-10-21] MEDS: HEPARIN 5,000 UNIT/1 ML VIAL SC SCH ×3 (06:17→20:50)
[2018-10-21] MEDS: INSULIN ASPART [NOVOLOG] 3 ML PEN SC SCH ×4 (08:00→20:50)
--- NOTE | 2018-10-21 08:45 | PN ---
DATE: 10/21/2018 The patient is stable. No events overnight. VITAL SIGNS: Stable. Blood pressure is 115/66, respirations 16, pulse 74, temperature 99.2. HEENT: Head is normocephalic. NECK: Supple. HEART: Regular rate. LUNGS: Show diminished breath. ABDOMEN: Soft to palpation. No rebound or guarding. EXTREMITIES: Negative for clubbing, cyanosis, no edema. DERMATOLOGIC: No rashes. MUSCULOSKELETAL: No joint effusion. NEUROLOGIC: No change in exam. MEDICATIONS: The patient's medications have been reviewed. ASSESSMENT AND PLAN: 1. End-stage renal disease. Dialysis today. Will dialyze 3 hours 2k bath, calcium 2.5. 2. Anemia. Hemoglobin levels are at goal. Will continue to hold Epogen. 3. Mineral bone disorder. Continue phos binders. Phosphorus levels have been improving. Continue hemodialysis for solute clearance. 4. Seizure disorder. Continue medical management. 6. CVA. Continue current treatment plan. 7. Chronic myelopathy. Continue to monitor. 8. Hypertension. Continue current blood pressure regimen. 9. Neuropathy. Continue medical management. 10. Pneumonia. The patient has completed an antibiotic course. Dictated By: ZAHIRA SIMMS DO NR/NTS Conf#: [id number] DID#: [id number] CC: MIGUEL OWENS MD; RADHA PARSON MD;*End*
[2018-10-21] MEDS: SEVELAMER CARBONATE 2.4 GM PKT PO SCH ×3 (09:10→17:46)
[2018-10-21] MEDS: CLOPIDOGREL 75 MG TAB PO SCH (09:10)
[2018-10-21] MEDS: VALPROIC ACID LIQUID CUP 250 MG/5 ML CUP PO SCH ×3 (09:10→20:49)
[2018-10-21] MEDS: MULTIVIT/CA CARB/B CMPLX/FA TAB PO SCH (09:10)
[2018-10-21] MEDS: FAMOTIDINE 20 MG TAB PO SCH (09:10)
[2018-10-21] MEDS: ERYTHROMYCIN 1 GM OPH OINT BOTH EYES SCH ×4 (09:10→20:48)
[2018-10-21] MEDS: CHOLECALCIFEROL 1,000 UNIT TAB PO SCH (09:15)
[2018-10-21] MEDS: HEPARIN 1000 UNITS/ML 10 ML INJ CATHETER SCH (12:24)
--- NOTE | 2018-10-21 14:19 | PN ---
Date/Time of Note Date/Time of Note DATE: 10/21/18 TIME: 14:19 Objective Vitals Vital Signs Date Temp Pulse Resp B/P (MAP) Pulse Ox O2 O2 Flow FiO2 Time Delivery Rate 10/21/18 72 12:35 10/21/18 18 128/77 98 Room Air 09:25 (94) 10/21/18 98.1 08:03 10/20/18 21 14:48 Results Result Diagram: 10/21/18 0444 10/21/18 0444 Medications Medications Current Medications IV Flush (NS 3 ml) 3 ml PER PROTOCOL IV ; Start 10/08/18 at 23:00 Acetaminophen (Tylenol Tab) 650 mg Q6H PRN PO .PAIN 1-3 OR TEMP; Start 10/08/18 at 23:00 Albuterol/ Ipratropium (Duoneb) 3 ml Q2H RESP THERAPY PRN HHN SHORTNESS OF BREATH Last administered on 10/20/18at 14:38; Admin Dose 3 ML; Start 10/08/18 at 23:00 Lorazepam (Ativan) 1 mg Q2H PRN IV seizure; Start 10/09/18 at 18:30 Ondansetron HCl (Zofran Inj) 4 mg Q4H PRN IV NAUSEA/VOMITING Last administered on 10/18/18 13:32; Admin Dose 4 MG; Start 10/09/18 at 18:30 Albuterol (Proventil 0.083% (Neb)) 1.25 mg Q2H RESP THERAPY PRN HHN WHEEZING AND RESP DISTRESS Last administered on 10/13/18 20:26; Admin Dose 1.25 MG; Start 10/09/18 at 18:30 Diagnostic Test (Pha) (Accu-Chek) 1 ea 02 XX ; Start 10/10/18 at 02:00 Insulin Aspart (Novolog Insulin Pen) NOVOLOG *MILD* ALGORITHM WITH MEALS BEDT IVELISSE SC Last administered on 10/20/18at 13:24; Admin Dose 1 UNIT; Start 10/09/18 at 21:00 Epoetin Isidro-epbx (RETACRIT(esrd)) 10,000 unit MoWeFr@1700 SC Last administered on 10/13/18 17:29; Admin Dose 10,000 UNIT; Start 10/11/18 at 17:00; Status Hold Cholecalciferol (Vitamin D) 1,000 unit DAILY PO Last administered on 10/21/18 09:15; Admin Dose 1,000 UNIT; Start 10/11/18 at 09:00 Multivit/Ca Carb/ B Cmplx/FA/Prenat (Giselle-Cristin) 1 tab DAILY PO Last administered on 10/21/18 09:10; Admin Dose 1 TAB; Start 10/11/18 at 09:00 Heparin Sodium (Porcine) (Heparin (5000 Units/1ml)) 5,000 unit Q8 SC Last administered on 10/21/18 06:17; Admin Dose 5,000 UNIT; Start 10/11/18 at 22:00 Hydralazine HCl (Apresoline) 10 mg Q4H PRN IV ELEVATED BLOOD PRESSURE Last administered on 10/17/18 02:49; Admin Dose 10 MG; Start 10/11/18 at 23:30 Heparin Sodium (Porcine) (Heparin (1000 Units/ml)) 3,200 unit AFTER DIALYSIS CATHETER Last administered on 10/21/18 12:24; Admin Dose 3,200 UNIT; Start 10/13/18 at 10:30 Famotidine (Pepcid) 20 mg DAILY PO Last administered on 10/21/18 09:10; Admin Dose 20 MG; Start 10/16/18 at 09:00 Valproate Sodium (Depakene Liquid Cup) 750 mg TID PO Last administered on 10/21/18 12:22; Admin Dose 750 MG; Start 10/15/18 at 23:30 Erythromycin (Erythromycin Oph Oint) 1 applic QID BOTH EYES Last administered on 10/21/18 12:22; Admin Dose 1 APPLIC; Start 10/16/18 at 17:00 Miscellaneous Information 1 ea NOTE XX ; Start 10/16/18 at 16:30 Glucose (Glutose) 15 gm Q15M PRN PO DECREASED GLUCOSE; Start 10/16/18 at 16:30 Glucose (Glutose) 22.5 gm Q15M PRN PO DECREASED GLUCOSE; Start 10/16/18 at 16:30 Dextrose (D50w Syringe) 25 ml Q15M PRN IV DECREASED GLUCOSE; Start 10/16/18 at 16:30 Dextrose (D50w Syringe) 50 ml Q15M PRN IV DECREASED GLUCOSE; Start 10/16/18 at 16:30 Glucagon (Glucagen) 1 mg Q15M PRN IM DECREASED GLUCOSE; Start 10/16/18 at 16:30 Glucose (Glutose) 15 gm Q15M PRN BUCCAL DECREASED GLUCOSE; Start 10/16/18 at 16:30 Sevelamer Carbonate (Renvela) 2.4 gm WITH MEALS PO Last administered on 10/21/18at 12:21; Admin Dose 2.4 GM; Start 10/20/18 at 08:07 Clopidogrel Bisulfate (plaVIX) 75 mg DAILY PO Last administered on 10/21/18at 09:10; Admin Dose 75 MG; Start 10/21/18 at 09:00 VTE Prophylaxis Risk score (from Ns)>0 risk: 3 SCD applied (from [facility] [place]): Yes Lines/Catheters IV Catheter Type: Dong in Place: No Assessment/Plan Hospital Course Subjective Patient has no acute changes overnight, answer questions and following instruction well, easily aroused Objective physical exam General: Patient is laying in bed, answers some questions with short words, alert Mentation: Patient is alert and somewhat oriented Head: Normocephalic atraumatic Eyes: EOMI, pupils reactive to light Neck: Supple, nontender, midline Respiratory: Clear to auscultation bilaterally Cardiovascular: regular rate, no obvious murmurs Gastrointestinal: non-tender to palpation, bowel sounds heard. Neurological: Moves all extremities spontaneously Skin: No new skin lesions ASSESSMENT & PLAN . 58-year-old male with comorbidities including seizure disorder, end-stage renal disease on hemodialysis, hypertension, chronic encephalopathy, and diabetes mellitus, who was brought to the emergency room after breakthrough seizures, who was admitted to inpatient setting for further treatment and evaluation. Acute encephalopathy -Likely set off by Keppra as patient has a history of doing very poorly on Keppra with major side effects per , similar episode in the past -Patient is back to near baseline as far as cognition goes however is not ambulating, some may be mechanical however it seems there is a portion that is mental with the patient. -Patient was previously on Dilantin, now on valproic acid -Neurology recommendations appreciated 1. Seizure disorder. Persistent -Status post evaluation by neurology. -Continue anticonvulsants. 2. Hypertensive urgency. Resolved -Off antihypertensives for now. -Adjust antihypertensives to obtain optimal blood pressure control. -Patient was on hydralazine 50 twice daily and amlodipine 5 twice daily at home, will re-add these as needed 3. Diabetes mellitus. -Hemoglobin A1c 6.6. -Continue sliding scale insulin. Patient on Levemir at home 4. End-stage renal disease on hemodialysis -Hemodialysis as per nephrology. 5. Suspected aspiration pneumonia. -Continue antimicrobials including coverage for anaerobes. 6. Normocytic, normochromic anemia. -Probably anemia of chronic kidney disease -Continue Epogen. 7. History of multiple strokes. -Stop baby aspirin, patient was on Plavix at home, restart Plavix 8. Dyslipidemia. -Continue statins. 9. Fluids, electrolytes, and nutrition. -Renal, carbohydrate controlled diet. 10. DVT prophylaxis -Subcutaneous heparin. 11. Plan. -Patient ready for discharge, case management to help with discharge home versus [facility] facility vs MIGUEL COSTA October 21, 2018 14:19
--- NOTE | 2018-10-21 15:57 | CONS ---
Assessment/Plan Assessment/Plan Hospital Course 58 yo M with reported hx of CVA, epilepsy, and other comorbidities who presents for evaluation of a breakthrough seizure. That patient's reports that he is prescribed Dilantin; however, serum level on admission was undetectable.. The clinical picture is most consistent with breakthrough seizure in the context of medication noncompliance. Meningoencephalitis is unlikely. MRI brain is notable for multiple chronic BL hemispheric infarcts, but is otherwise without acute intracranial pathology. P: Continue maintenance depakote 750mg TID for now; titrate prn to goal level 50- 100 Agree with discontinuation of Keppra Ativan IV PRN seizures > 5 min or for cluster Cont medical management per primary Will follow Consultation Date/Type/Reason Admit Date/Time Oct 08, 2018 at 18:36 Type of Consult Neurology Reason for Consultation seizure Requesting Provider: COLUMBA LE MD Date/Time of Note DATE: 10/21/18 TIME: 15:57 24 HR Interval Summary Free Text/Dictation Continues acute care. Pt's reportedly refusing discharge. No changes in pt condition. Exam Vital Signs Vitals Vital Signs Date Temp Pulse Resp B/P (MAP) Pulse Ox O2 O2 Flow FiO2 Time Delivery Rate 10/21/18 100.1 70 18 98/58 (71) 100 Room Air 15:45 10/20/18 21 14:48 Exam PE: Gen Appearance: NAD HEENT: Normocephalic Cardiovascular: Regular rate Abdomen: Soft Extremities: Dry NE: The patient was awake and alert, though nonverbal. Able to follow simple axial and appendicular commands. Cranial nerve examination was limited by mental status. Pupils were equal and reactive to light. There was no afferent pupillary defect. Funduscopic examination was limited. Face was grossly symmetric, w/ present corneal and cough reflexes. Tone was normal. Muscle bulk was normal. I did not see fasciculations. The patient was spontaneously moving his extremities. Coordination and gait testing was limited by mental status. Arm and leg reflexes were within normal limits and symmetric. Saenz's sign was absent. Plantar responses were flexor. JEAN-PAUL CORBIN NP October 21, 2018 15:57
[2018-10-22 01:43] VITALS: BP 127/73; PULSE 73; RESP 18
[2018-10-22] MEDS: ACCU-CHEK XX SCH (01:57)
[2018-10-22] MEDS: HEPARIN 5,000 UNIT/1 ML VIAL SC SCH ×3 (05:35→21:09)
[2018-10-22 07:47] VITALS: BP 105/65; PULSE 71; RESP 18
[2018-10-22] MEDS: INSULIN ASPART [NOVOLOG] 3 ML PEN SC SCH ×4 (08:00→20:37)
--- NOTE | 2018-10-22 08:15 | PN ---
DATE: 10/22/2018 SUBJECTIVE: The patient is stable, no acute events overnight. No hemoptysis, hematemesis or hematoc hezia. OBJECTIVE: VITAL SIGNS: Blood pressure is 127/73, respiration 18, pulse 73, temperature 99.0. HEENT: Head is normocephalic. NECK: Supple. HEART: Regular rate. LUNGS: Show diminished breath sounds at the base. ABDOMEN: Soft, nontender to palpation without rebound or guarding. EXTREMITIES: Negative for clubbing, cyanosis, no edema. DERMATOLOGIC: No rashes. MUSCULOSKELETAL: No joint effusions. NEUROLOGIC: No change in exam. MEDICATIONS: Reviewed. LABORATORY DATA: Has been reviewed. ASSESSMENT AND PLAN: 1. End-stage renal disease. The patient had hemodialysis yesterday, tolerated well. Plan for dialy sis again tomorrow. 2. Anemia. Continue to monitor hemoglobin and hematocrit levels. Will give Epogen as needed. 3. Mineral bone disorder. Continue to monitor calcium and phosphatase levels. Continue phosphate b inders. 4. Seizure disorder. Continue medical management. 5. Cardiovascular accident. Continue current treatment plan. 6. Encephalopathy, chronic. Continue to monitor. 7. Hypertension. Continue current blood pressure regimen. Continue ultrafiltration with hemodialys is. 8. Neuropathy. Continue medical management. 9. Pneumonia. Patient has completed antibiotic course. Dictated By: ZAHIRA SIMMS DO NR/NTS Conf#: [id number] DID#: [id number] CC: RADHA PARSON MD;*EndCC*
[2018-10-22] MEDS: ERYTHROMYCIN 1 GM OPH OINT BOTH EYES SCH ×4 (08:20→20:36)
[2018-10-22] MEDS: CHOLECALCIFEROL 1,000 UNIT TAB PO SCH (08:20)
[2018-10-22] MEDS: VALPROIC ACID LIQUID CUP 250 MG/5 ML CUP PO SCH ×3 (08:20→20:36)
[2018-10-22] MEDS: MULTIVIT/CA CARB/B CMPLX/FA TAB PO SCH (08:20)
[2018-10-22] MEDS: FAMOTIDINE 20 MG TAB PO SCH (08:20)
[2018-10-22] MEDS: CLOPIDOGREL 75 MG TAB PO SCH (08:20)
[2018-10-22] MEDS: SEVELAMER CARBONATE 2.4 GM PKT PO SCH ×3 (08:20→17:46)
--- NOTE | 2018-10-22 12:43 | PN ---
Date/Time of Note Date/Time of Note DATE: 10/22/18 TIME: 12:42 Objective Vitals Vital Signs Date Temp Pulse Resp B/P (MAP) Pulse Ox O2 O2 Flow FiO2 Time Delivery Rate 10/22/18 97.7 71 18 105/65 98 07:47 (78) 10/21/18 Room Air 15:45 10/20/18 21 14:48 Intake and Output 10/21/18 10/21/18 10/22/18 1515:00 23:00 07:00 IntakeIntake Total 600 ml 120 ml OutputOutput Total 1900 ml BalanceBalance -1300 ml 120 ml Results Result Diagram: 10/22/1844410/22/18444 Medications Medications Current Medications IV Flush (NS 3 ml) 3 ml PER PROTOCOL IV ; Start 10/08/18 at 23:00 Acetaminophen (Tylenol Tab) 650 mg Q6H PRN PO .PAIN 1-3 OR TEMP; Start 10/08/18 at 23:00 Albuterol/ Ipratropium (Duoneb) 3 ml Q2H RESP THERAPY PRN HHN SHORTNESS OF BREATH Last administered on 10/20/18at 14:38; Admin Dose 3 ML; Start 10/08/18 at 23:00 Lorazepam (Ativan) 1 mg Q2H PRN IV seizure; Start 10/09/18 at 18:30 Ondansetron HCl (Zofran Inj) 4 mg Q4H PRN IV NAUSEA/VOMITING Last administered on 10/18/18at 13:32; Admin Dose 4 MG; Start 10/09/18 at 18:30 Albuterol (Proventil 0.083% (Neb)) 1.25 mg Q2H RESP THERAPY PRN HHN WHEEZING AND RESP DISTRESS Last administered on 10/13/18at 20:26; Admin Dose 1.25 MG; Start 10/09/18 at 18:30 Diagnostic Test (Pha) (Accu-Chek) 1 ea 02 XX ; Start 10/10/18 at 02:00 Insulin Aspart (Novolog Insulin Pen) NOVOLOG *MILD* ALGORITHM WITH MEALS BEDTIME SC Last administered on 10/21/18at 17:48; Admin Dose 1 UNIT; Start 10/09/18 at 21:00 Epoetin Isidro-epbx (RETACRIT(esrd)) 10,000 unit MoWeFr@1700 SC Last administered on 10/13/18 17:29; Admin Dose 10,000 UNIT; Start 10/11/18 at 17:00; Status Hold Cholecalciferol (Vitamin D) 1,000 unit DAILY PO Last administered on 10/22/18 08:20; Admin Dose 1,000 UNIT; Start 10/11/18 at 09:00 Multivit/Ca Carb/ B Cmplx/FA/Prenat (Giselle-Cristin) 1 tab DAILY PO Last administered on 10/22/18 08:20; Admin Dose 1 TAB; Start 10/11/18 at 09:00 Heparin Sodium (Porcine) (Heparin (5000 Units/1ml)) 5,000 unit Q8 SC Last administered on 10/22/18 05:35; Admin Dose 5,000 UNIT; Start 10/11/18 at 22:00 Hydralazine HCl (Apresoline) 10 mg Q4H PRN IV ELEVATED BLOOD PRESSURE Last administered on 10/17/18 02:49; Admin Dose 10 MG; Start 10/11/18 at 23:30 Heparin Sodium (Porcine) (Heparin (1000 Units/ml)) 3,200 unit AFTER DIALYSIS CATHETER Last administered on 10/21/18 12:24; Admin Dose 3,200 UNIT; Start 10/13/18 at 10:30 Famotidine (Pepcid) 20 mg DAILY PO Last administered on 10/22/18 08:20; Admin Dose 20 MG; Start 10/16/18 at 09:00 Valproate Sodium (Depakene Liquid Cup) 750 mg TID PO Last administered on 10/22/18 12:20; Admin Dose 750 MG; Start 10/15/18 at 23:30 Erythromycin (Erythromycin Oph Oint) 1 applic QID BOTH EYES Last administered on 10/22/18 12:22; Admin Dose 1 APPLIC; Start 10/16/18 at 17:00 Miscellaneous Information 1 ea NOTE XX ; Start 10/16/18 at 16:30 Glucose (Glutose) 15 gm Q15M PRN PO DECREASED GLUCOSE; Start 10/16/18 at 16:30 Glucose (Glutose) 22.5 gm Q15M PRN PO DECREASED GLUCOSE; Start 10/16/18 at 16:30 Dextrose (D50w Syringe) 25 ml Q15M PRN IV DECREASED GLUCOSE; Start 10/16/18 at 16:30 Dextrose (D50w Syringe) 50 ml Q15M PRN IV DECREASED GLUCOSE; Start 10/16/18 at 16:30 Glucagon (Glucagen) 1 mg Q15M PRN IM DECREASED GLUCOSE; Start 10/16/18 at 16:30 Glucose (Glutose) 15 gm Q15M PRN BUCCAL DECREASED GLUCOSE; Start 10/16/18 at 16:30 Sevelamer Carbonate (Renvela) 2.4 gm WITH MEALS PO Last administered on 10/22/18at 12:20; Admin Dose 2.4 GM; Start 10/20/18 at 08:07 Clopidogrel Bisulfate (plaVIX) 75 mg DAILY PO Last administered on 10/22/18at 08:20; Admin Dose 75 MG; Start 10/21/18 at 09:00 VTE [place] [facility] [place]: 6 [place]CD [place] [facility] [place] Yes Lines/Catheters IV Catheter Type: Dong in Place: No Assessment/Plan Hospital Course Subjective Patient has no acute changes overnight, answer questions and following instruction well, easily aroused Objective physical exam General: Patient is laying in bed, answers some questions with short words, alert Mentation: Patient is alert and somewhat oriented Head: Normocephalic atraumatic Eyes: EOMI, pupils reactive to light Neck: Supple, nontender, midline Respiratory: Clear to auscultation bilaterally Cardiovascular: regular rate, no obvious murmurs Gastrointestinal: non-tender to palpation, bowel sounds heard. Neurological: Moves all extremities spontaneously Skin: No new skin lesions ASSESSMENT & PLAN . 58-year-old male with comorbidities including seizure disorder, end-stage renal disease on hemodialysis, hypertension, chronic encephalopathy, and diabetes mellitus, who was brought to the emergency room after breakthrough seizures, who was admitted to inpatient setting for further treatment and evaluation. Acute encephalopathy -Likely set off by Keppra as patient has a history of doing very poorly on Keppra with major side effects per , similar episode in the past -Patient is back to near baseline as far as cognition goes however is not ambulating, some may be mechanical however it seems there is a portion that is mental with the patient. -Patient was previously on Dilantin, now on valproic acid -Neurology recommendations appreciated One-time mild fever -Likely error as approximately 45 minutes later with no intervention patient was back to within normal limits of temperature -Monitor, no other signs of infection. Seizure disorder. Persistent -Status post evaluation by neurology. -Continue anticonvulsants. Hypertensive urgency. Resolved -Off antihypertensives for now. -Adjust antihypertensives to obtain optimal blood pressure control. -Patient was on hydralazine 50 twice daily and amlodipine 5 twice daily at home, will re-add these as needed Diabetes mellitus. -Hemoglobin A1c 6.6. -Continue sliding scale insulin. Patient on Levemir at home End-stage renal disease on hemodialysis -Hemodialysis as per nephrology. Suspected aspiration pneumonia. -Continue antimicrobials including coverage for anaerobes. Normocytic, normochromic anemia. -Probably anemia of chronic kidney disease -Continue Epogen. History of multiple strokes. -Stop baby aspirin, patient was on Plavix at home, restart Plavix Dyslipidemia. -Continue statins. Fluids, electrolytes, and nutrition. -Renal, carbohydrate controlled diet. DVT prophylaxis -Subcutaneous heparin. Plan. -Patient ready for discharge, case management to help with discharge home versus half-way facility vs MIGUEL COSTA October 22, 2018 12:43
[2018-10-22 14:08] VITALS: BP 133/79; PULSE 69; RESP 18
--- NOTE | 2018-10-22 17:04 | CONS ---
Assessment/Plan Assessment/Plan Hospital Course 58 yo M with reported hx of CVA, epilepsy, and other comorbidities who presents for evaluation of a breakthrough seizure. That patient's reports that he is prescribed Dilantin; however, serum level on admission was undetectable.. The clinical picture is most consistent with breakthrough seizure in the context of medication noncompliance. Meningoencephalitis is unlikely. MRI brain is notable for multiple chronic BL hemispheric infarcts, but is otherwise without acute intracranial pathology. P: Continue maintenance depakote 750mg TID for now; titrate prn to goal level 50- 100 Agree with discontinuation of Keppra Ativan IV PRN seizures > 5 min or for cluster Cont medical management per primary Will sign off for now; please call w/ ?s Consultation Date/Type/Reason Admit Date/Time Oct 08, 2018 at 18:36 Type of Consult Neurology Reason for Consultation seizure Requesting Provider: COLUMBA LE MD Date/Time of Note DATE: 10/22/18 TIME: 17:04 24 HR Interval Summary Free Text/Dictation Continues acute care. Exam Vital Signs Vitals Vital Signs Date Temp Pulse Resp B/P (MAP) Pulse Ox O2 O2 Flow FiO2 Time Delivery Rate 10/22/18 97.5 69 18 133/79 100 14:08 (97) 10/21/18 Room Air 15:45 10/20/18 21 14:48 Intake and Output 10/21/18 10/21/18 10/22/18 1414:59 22:59 06:59 IntakeIntake Total 600 ml 120 ml OutputOutput Total 1900 ml BalanceBalance -1300 ml 120 ml Exam PE: Gen Appearance: NAD HEENT: Normocephalic Cardiovascular: Regular rate Abdomen: Soft Extremities: Dry NE: The patient was awake and alert, though nonverbal. Able to track and follow simple axial and appendicular commands. Cranial nerve examination was limited by mental status. Pupils were equal and reactive to light. There was no afferent pupillary defect. Funduscopic examination was limited. Face was grossly symmetric, w/ present corneal and cough reflexes. Tone was normal. Muscle bulk was normal. I did not see fasciculations. The patient was spontaneously moving his extremities. Coordination and gait testing was limited by mental status. Arm and leg reflexes were within normal limits and symmetric. Saenz's sign was absent. Plantar responses were flexor. [employer]ERALDY[employer]A [employer] October 22, 2018 17:04 AURORA MANCERA October 23, 2018 06:45
[2018-10-22 20:12] VITALS: BP 117/67; PULSE 64; RESP 18
[2018-10-23] VITALS (19 sets, daily range): BP systolic 90–124; BP diastolic 62–78; PULSE 64–84; RESP 14–20
[2018-10-23] MEDS: ACCU-CHEK XX SCH (02:00)
[2018-10-23] MEDS: HEPARIN 5,000 UNIT/1 ML VIAL SC SCH ×2 (05:42→15:07)
[2018-10-23] MEDS: INSULIN ASPART [NOVOLOG] 3 ML PEN SC SCH ×3 (08:00→17:38)
[2018-10-23] MEDS: ERYTHROMYCIN 1 GM OPH OINT BOTH EYES SCH ×3 (08:40→17:00)
[2018-10-23] MEDS: VALPROIC ACID LIQUID CUP 250 MG/5 ML CUP PO SCH ×2 (08:40→13:00)
[2018-10-23] MEDS: SEVELAMER CARBONATE 2.4 GM PKT PO SCH ×3 (08:40→17:38)
[2018-10-23] MEDS: FAMOTIDINE 20 MG TAB PO SCH (08:40)
[2018-10-23] MEDS: CHOLECALCIFEROL 1,000 UNIT TAB PO SCH (08:41)
[2018-10-23] MEDS: CLOPIDOGREL 75 MG TAB PO SCH (08:41)
[2018-10-23] MEDS: MULTIVIT/CA CARB/B CMPLX/FA TAB PO SCH (08:41)
[2018-10-23] MEDS ORDERED: CLOP75TA28 PO (11:12)
[2018-10-23] MEDS ORDERED: LEVEM SUBCUTANE (11:19)
[2018-10-23] MEDS ORDERED: INSU100I27 SQ (11:23)
--- NOTE | 2018-10-23 11:28 | DS ---
Date/Time of Note Date/Time of Note DATE: 10/23/18 TIME: 11:27 Discharge Summary Admission/Discharge Info Admit Date/Time Oct 08, 2018 at 18:36 Discharge Date/Time Discharge Diagnosis 1. Seizure disorder. 2. Hypertension. 3. Diabetes mellitus. Hemoglobin A1c 6.6. 4. End-stage renal disease on hemodialysis 5. Suspected aspiration pneumonia. 6. Normocytic, normochromic anemia. 7. History of multiple strokes. 8. Dyslipidemia. 9. Chronic encephalopathy. Patient Condition: Stable Hospital Course Patient is a male with past medical history significant for epilepsy, chronic encephalopathy due to CVA and posttraumatic stress disorder who presented to [facility] for breakthrough seizure. Patient was monitored, seen by multiple specialist including nephrology and neurology. Patient was put on a different medication from neurology and patient has stabilized and continues to improve on a daily basis. Patient is alert and somewhat oriented, patient is improving, does not want to participate in physical therapy. It was offered that the patient go to a [facility] facility however patient's refused and stated she will take him home with home health physical therapy. Home health physical therapy was arranged, patient already has a wheelchair and new prescriptions were given for all his medical needs at discharge. Patient will be taken home for care from his . Discharge diagnosis Acute encephalopathy, resolving, at baseline Seizure disorder, Hypertension, resolved, not on any medications Diabetes mellitus, End-stage renal disease on hemodialysis Aspiration pneumonia, treated Anemia CVA history Dyslipidemia Home Meds Active Scripts Insulin Detemir (Levemir Flextouch) 100 Unit/1 Ml Insuln.pen, 10 UNIT SQ DAILY for 30 Days, EA 1 Refill Prov:MIGUEL OWENS 10/23/18 Clopidogrel Bisulfate (Clopidogrel) 75 Mg Tablet, 75 MG PO DAILY for 30 Days, #30 TAB 2 Refills Prov:MIGUEL OWENS 10/23/18 Sevelamer Carbonate* (Renvela*) 800 Mg Tablet, 1600 MG PO WITH MEALS for 30 Days, #180 TAB Prov:MIGUEL OWENS 10/20/18 Cholecalciferol* (Vitamin D3*) 1,000 Unit Tablet, 1000 UNIT PO DAILY for 30 Days, #30 TAB Prov:MIGUEL OWENS 10/20/18 Azithromycin (Azasite) 2.5 Ml Drops, 1 DROP OPHTHALMIC DAILY, #1 BOTTLE 1 drop in each eye, daily. Prov:MIGUEL OWENS 10/20/18 Valproic Acid* (Valproic Acid*) 250 Mg Capsule, 750 MG PO TID, #270 CAP 1 Refill 3 capsules (750 mg) orally TID Prov:MIGUEL OWENS 10/20/18 Discontinued Scripts Sitagliptin* (Januvia*) 25 Mg Tablet, 25 MG PO DAILY, #30 TAB Prov:GORDON TEE NP 10/14/18 Follow-up Plan Dax Knight DO Specialty: Internal Medicine Office Address [address] [place] [address] [id number] [place] [address] Office Primary Care Provider Not On Staff Doctor Time spent on discharge: > 30 minutes Pending Labs Laboratory Tests Test 10/22/18 12:21 10/22/18 17:45 10/22/18 20:33 10/23/18 04:44 Bedside 123 103 122 Glucose mg/dL (70-220) mg/dL (70-220) mg/dL (70-220) White Blood 8.8 Count 10^3/ul (4.8-1 0.8) Red Blood 4.36 Count 10^6/ul (4.70- 6.10) Hemoglobin 12.6 g/dl (14.0-18. 0) Hematocrit 39.0 % (42.0-52.0) Mean 89.4 Corpuscular fl (82.0-101.0 Volume ) Mean 28.9 Corpuscular pg (29.0-33.0) Hemoglobin Mean 32.3 Corpuscular g/dl (32.0-37. Hemoglobin Conc 0) ent Red Cell 14.1 Distribution % (11.5-14.5) Width Platelet Count 363 10^3/UL (140-4 15) Mean Platelet 10.4 Volume fl (7.4-10.4) Immature 1.500 Granulocytes % % (0.001-0.429 ) Neutrophils % 63.6 % (39.0-77.0) Lymphocytes % 21.7 % (15.0-51.0) Monocytes % 10.1 % (0.0-11.0) Eosinophils % 2.4 % (0.0-7.0) Basophils % 0.7 % (0.0-2.0) Nucleated Red 0.0 Blood Cells % /100WBC (0.0-0 .0) Immature 0.130 Granulocytes # 10^3/ul (0.0-0 .031) Neutrophils # 5.6 10^3/ul (1.6-7 .5) Lymphocytes # 1.9 10^3/ul (0.8-2 .9) Monocytes # 0.9 10^3/ul (0.3-0 .9) Eosinophils # 0.2 10^3/ul (0.0-0 .5) Basophils # 0.1 10^3/ul (0.0-0 .1) Nucleated Red 0.0 Blood Cells # 10^3/ul (0.0-0 .0) Sodium Level 140 mmol/L (135-14 4) Potassium 4.5 Level mmol/L (3.5-5. 1) Chloride Level 101 mmol/L (97-110 ) Carbon Dioxide 23 Level mmol/L (21-31) Anion Gap 16 (5-13) Blood Urea 52 Nitrogen mg/dl (7-20) Creatinine 8.77 mg/dl (0.61-1. 24) Est Glomerular 6 mL/min (>60) Filtrat Rate mL/min Glucose Level 83 mg/dl (70-220) Calcium Level 8.6 mg/dl (8.4-10. 2) Phosphorus 7.7 Level mg/dl (2.5-4.9 ) Magnesium 2.3 Level mg/dl (1.7-2.5 ) Test 10/23/18 07:59 Bedside 87 Glucose mg/dL (70-220) MIGUEL OWENS October 23, 2018 11:27
--- NOTE | 2018-10-23 12:39 | CONS ---
Assessment/Plan Assessment/Plan Hospital Course (Demo Recall) 1. End-stage renal disease. HD today. 2. Anemia. Continue to monitor hemoglobin and hematocrit levels. Will give Epogen as needed. 3. Mineral bone disorder. Continue to monitor calcium and phosphatase levels. Continue phosphate binders. 4. Seizure disorder. Continue medical management. 5. Cardiovascular accident. Continue current treatment plan. 6. Encephalopathy, chronic. Continue to monitor. 7. Hypertension. Continue current blood pressure regimen. Continue ultrafiltr ation with hemodialysis. 8. Neuropathy. Continue medical management. 9. Pneumonia. Patient has completed antibiotic course. Consultation Date/Type/Reason Admit Date/Time Oct 08, 2018 at 18:36 Initial Consult Date Requesting Provider: COLUMBA LE MD Date/Time of Note DATE: 10/23/18 TIME: 12:38 24 HR Interval Summary Free Text/Dictation afebrile. no n/v or shortness of breath gen nad cv rrr pulm ctab abd soft, nd, nt +bs ext: no edema Exam/Review of Systems Exam Vitals Vital Signs Date Temp Pulse Resp B/P (MAP) Pulse Ox O2 O2 Flow FiO2 Time Delivery Rate 10/23/18 98.0 64 14 115/67 98 07:34 (83) 10/21/18 Room Air 15:45 10/20/18 21 14:48 Results Result Diagram: 10/23/18 0444 10/23/18 0444 Results 24hrs Laboratory Tests Test 10/22/18 17:45 10/22/18 20:33 10/23/18 04:44 10/23/18 07:59 Bedside Glucose 103 122 87 White Blood Count 8.8 Red Blood Count 4.36 L Hemoglobin 12.6 L Hematocrit 39.0 L Mean Corpuscular 89.4 Volume Mean Corpuscular 28.9 L Hemoglobin Mean Corpuscular 32.3 Hemoglobin Concent Red Cell 14.1 Distribution Width Platelet Count 363 Mean Platelet Volume 10.4 Immature 1.500 H Granulocytes % Neutrophils % 63.6 Lymphocytes % 21.7 Monocytes % 10.1 Eosinophils % 2.4 Basophils % 0.7 Nucleated Red Blood 0.0 Cells % Immature 0.130 H Granulocytes # Neutrophils # 5.6 Lymphocytes # 1.9 Monocytes # 0.9 Eosinophils # 0.2 Basophils # 0.1 Nucleated Red Blood 0.0 Cells # Sodium Level 140 Potassium Level 4.5 Chloride Level 101 Carbon Dioxide Level 23 Anion Gap 16 H Blood Urea Nitrogen 52 H Creatinine 8.77 #H Est Glomerular 6 L Filtrat Rate mL/min Glucose Level 83 Calcium Level 8.6 Phosphorus Level 7.7 #H Magnesium Level 2.3 Medications Medication Current Medications IV Flush (NS 3 ml) 3 ml PER PROTOCOL IV ; Start 10/08/18 at 23:00 Acetaminophen (Tylenol Tab) 650 mg Q6H PRN PO .PAIN 1-3 OR TEMP; Start 10/08/18 at 23:00 Albuterol/ Ipratropium (Duoneb) 3 ml Q2H RESP THERAPY PRN HHN SHORTNESS OF BREATH Last administered on 10/20/18 14:38; Admin Dose 3 ML; Start 10/08/18 at 23:00 Lorazepam (Ativan) 1 mg Q2H PRN IV seizure; Start 10/09/18 at 18:30 Ondansetron HCl (Zofran Inj) 4 mg Q4H PRN IV NAUSEA/VOMITING Last administered on 10/18/18 13:32; Admin Dose 4 MG; Start 10/09/18 at 18:30 Albuterol (Proventil 0.083% (Neb)) 1.25 mg Q2H RESP THERAPY PRN HHN WHEEZING AN D RESP DISTRESS Last administered on 10/13/18 20:26; Admin Dose 1.25 MG; Start 10/09/18 at 18:30 Diagnostic Test (Pha) (Accu-Chek) 1 ea 02 XX ; Start 10/10/18 at 02:00 Insulin Aspart (Novolog Insulin Pen) NOVOLOG *MILD* ALGORITHM WITH MEALS BEDTIME SC Last administered on 10/21/18 17:48; Admin Dose 1 UNIT; Start 10/09/18 at 21:00 Epoetin Isidro-epbx (RETACRIT(esrd)) 10,000 unit MoWeFr@1700 SC Last administered on 10/13/18 17:29; Admin Dose 10,000 UNIT; Start 10/11/18 at 17:00; Status Hold Cholecalciferol (Vitamin D) 1,000 unit DAILY PO Last administered on 10/23/18 08:41; Admin Dose 1,000 UNIT; Start 10/11/18 at 09:00 Multivit/Ca Carb/ B Cmplx/FA/Prenat (Giselle-Cristin) 1 tab DAILY PO Last a dministered on 10/23/18 08:41; Admin Dose 1 TAB; Start 10/11/18 at 09:00 Heparin Sodium (Porcine) (Heparin (5000 Units/1ml)) 5,000 unit Q8 SC Last administered on 10/23/18 05:42; Admin Dose 5,000 UNIT; Start 10/11/18 at 22:00 Hydralazine HCl (Apresoline) 10 mg Q4H PRN IV ELEVATED BLOOD PRESSURE Last administered on 10/17/18 02:49; Admin Dose 10 MG; Start 10/11/18 at 23:30 Heparin Sodium (Porcine) (Heparin (1000 Units/ml)) 3,200 unit AFTER DIALYSIS CATHETER Last administered on 10/21/18 12:24; Admin Dose 3,200 UNIT; Start 10/13/18 at 10:30 Famotidine (Pepcid) 20 mg DAILY PO Last administered on 10/23/18 08:40; Admin Dose 20 MG; Start 10/16/18 at 09:00 Valproate Sodium (Depakene Liquid Cup) 750 mg TID PO Last administered on 10/23/18 08:40; Admin Dose 750 MG; Start 10/15/18 at 23:30 Erythromycin (Erythromycin Oph Oint) 1 applic QID BOTH EYES Last administered on 10/23/18 08:40; Admin Dose 1 APPLIC; Start 10/16/18 at 17:00 Miscellaneous Information 1 ea NOTE XX ; Start 10/16/18 at 16:30 Glucose (Glutose) 15 gm Q15M PRN PO DECREASED GLUCOSE; Start 10/16/18 at 16:30 Glucose (Glutose) 22.5 gm Q15M PRN PO DECREASED GLUCOSE; Start 10/16/18 at 16:30 Dextrose (D50w Syringe) 25 ml Q15M PRN IV DECREASED GLUCOSE; Start 10/16/18 at 16:30 Dextrose (D50w Syringe) 50 ml Q15M PRN IV DECREASED GLUCOSE; Start 10/16/18 at 16:30 Glucagon (Glucagen) 1 mg Q15M PRN IM DECREASED GLUCOSE; Start 10/16/18 at 16:30 Glucose (Glutose) 15 gm Q15M PRN BUCCAL DECREASED GLUCOSE; Start 10/16/18 at 16:30 Sevelamer Carbonate (Renvela) 2.4 gm WITH MEALS PO Last administered on 10/23/18 08:40; Admin Dose 2.4 GM; Start 10/20/18 at 08:07 Clopidogrel Bisulfate (plaVIX) 75 mg DAILY PO Last administered on 10/23/18at 08:41; Admin Dose 75 MG; Start 10/21/18 at 09:00 MERCY OWENS MD October 23, 2018 12:39
[2018-10-23] MEDS: HEPARIN 1000 UNITS/ML 10 ML INJ CATHETER SCH (16:16)
== END 2018-10-23 20:52 | disposition home health service (06) | DRG 871 ==
LOC: E/R 17:00 → 6WM 18:36 → 2NE 10-12 14:17
PROVIDERS: ADMIT Internal Medicine; ATTEND Internal Medicine
PROC: 5A1D70Z Performance of Urinary Filtration, Intermittent, Less than 6 Hours Per Day (ICD-10-PCS; principal; 2018-10-11)
DX: A41.9 Sepsis, unspecified organism (principal); J69.0 Pneumonitis due to inhalation of food and vomit; N18.6 End stage renal disease; G92 Toxic encephalopathy; G93.49 Other encephalopathy; E87.2 Acidosis; I12.0 Hypertensive chronic kidney disease with stage 5 chronic kidney disease or end stage renal disease; D63.1 Anemia in chronic kidney disease; E11.22 Type 2 diabetes mellitus with diabetic chronic kidney disease; E11.40 Type 2 diabetes mellitus with diabetic neuropathy, unspecified; E87.70 Fluid overload, unspecified; E83.51 Hypocalcemia; E83.39 Other disorders of phosphorus metabolism; E87.6 Hypokalemia; E78.5 Hyperlipidemia, unspecified; F32.9 Major depressive disorder, single episode, unspecified; F43.10 Post-traumatic stress disorder, unspecified; I25.10 Atherosclerotic heart disease of native coronary artery without angina pectoris; G40.901 Epilepsy, unspecified, not intractable, with status epilepticus; I35.9 Nonrheumatic aortic valve disorder, unspecified; I16.0 Hypertensive urgency; R62.7 Adult failure to thrive; T42.6X5A Adverse effect of other antiepileptic and sedative-hypnotic drugs, initial encounter; Z86.73 Personal history of transient ischemic attack (TIA), and cerebral infarction without residual deficits; Z59.0 Homelessness; Z91.14 Patient's other noncompliance with medication regimen; Z98.61 Coronary angioplasty status; Z99.2 Dependence on renal dialysis; Z68.20 Body mass index [BMI] 20.0-20.9, adult; Z87.891 Personal history of nicotine dependence; Z79.4 Long term (current) use of insulin
CPT/HCPCS: 36415; 70450; 70551; 71045; 71250; 80048; 80053; 80061; 80164; 80185; 80202; 82140; 82330; 82607; 82652; 82746; 82962; 83036; 83605; 83690; 83735; 83921; 83970; 84100; 84145; 84443; 84484; 85025; 85610; 85730; 86704; 86709; 86803; 87081; 87340; 90935; 92526; 92610; 93005; 94640; 94664; 96374; 96375; 97110; 97161; J0360; J0610; J0692; J1644; J1650; J1815; J1953; J2060; J2405; J2543; J3370; J3475; J3480; J7030; J7040; J7050; Q2009; Q5105